=== PATIENT | male | born 1960 | race Caucasian/White ===

== ENCOUNTER 2023-03-15 18:23 | Inpatient (IN) ==
[2023-03-15] MEDS ORDERED: MoRPHine SULFATE 2 MG/ML CARP IV STA (19:46)
--- NOTE | 2023-03-15 19:50 | Emergency Department Note ---
Impression & Plan Right lower quadrant abdominal pain, Vomiting, New onset atrial flutter, Hypertension ED Provider Note INFORMANT: Patient ED PROVIDER(S): Graham Light MD CHIEF COMPLAINT: Abdominal pain PLAN: Disposition: Admitted Condition: Good Outpatient prescription management: none Referral: None MEDICAL DECISION MAKING: Patient presented because of abdominal pain. He was treated with morphine. He had blood work obtained. He does have a mild leukocytosis. Lactate normal. Chemistry panel LFTs negative. UA negative CT imaging reveals enlarged right periaortic lymph nodes. No evidence of appendicitis or obstruction. Patient was significantly hypertensive. He was also a new onset a flutter by ECG. Patient was given a dose of IV labetalol. Ultrasound imaging of the gallbladder was ordered to further elucidate the abdominal pain complaints. Patient will need further management in the hospital. Discussed the case with Dr. London of the [facility] hospitalist service. Patient was evaluated in the ER and admitted for further management. Ultrasound still pending. Discussed with shipping/receiving manager After review of the information above and other included data, I feel the patient requires admission. Triage Nursing notes reviewed and agree them. Vital Signs: reviewed and remarkable for severe hypertension Prior /Outside records reviewed: [facility] transfer paperwork reviewed. Differential diagnosis: Appendicitis, testicular torsion, infections, diverticulitis, UTI, obstruction, mesenteric ischemia, aortic pathology, inflammatory bowel disease, renal colic, PUD, pancreatitis, biliary pathology, hernia, volvulus, constipation, as well as other pathologies. Diagnostics, as interpreted by me: ECG: Twelve-lead ECG reveals atrial flutter with variable block at 75 bpm. Borderline prolonged QT. No ST elevation or depression. Nonspecific ST. Cardiac Monitoring: Cardiac monitoring ordered by me: The patient was placed on continuous cardiac monitoring and observed. It revealed a atrial flutter at 67 beats per minute. Medical decision rules: none Imaging studies: CT scan as noted above. I refer you to the EMR for further details. HPI: The patient is a 63 year old male prisoner who presents to the Emergency Room with complaints of abdominal pain. This started yesterday and is migrating to the right lower quadrant. The patient also notes the following associated symptoms, nausea and vomiting. The patient has been given morphine and Zofran prehospital for relieving factors. Current pain is rated as 5/10. Denies any prior surgical history. Denies any heart history. Heart rate was irregular and monitoring revealed atrial flutter. Patient has no history of the same. Pt denies LOC, headache, fevers, chills, diaphoresis, visual changes, neck pain, chest pain, breathing difficulties, back pain, melena, hematochezia, urinary symptoms, numbness, weakness, lymphadenopathy, rash, or other complaints. PAST MEDICAL HISTORY: See Below, hypertension PAST SURGICAL HISTORY: See Below, SOCIAL HISTORY: See Below, incarcerated HOME MEDICATIONS: See Below ALLERGIES: See Below VITALS: See Below PHYSICAL EXAMINATION: GENERAL: Awake, alert, uncomfortable-appearing, in no distress HENT: Normocephalic, atraumatic. Oropharynx unremarkable. EYES: Normal conjunctiva. Sclera non-icteric. NECK: Inspection normal. Non-tender. Supple. No nuchal rigidity. FROM. No masses. RESPIRATORY: Clear to auscultation. No wheezes. No rales. Normal respiratory effort. CARDIAC: Normal rate. Irregular rhythm. No murmurs. No rubs. Extremities warm and well perfused. Pulses equal. No JVD. GI: Soft, non-distended. Right lower quadrant tenderness to palpation. No rebound or guarding. No masses. RECTAL: Deferred. MUSCULOSKELETAL: Atraumatic. Chest examination reveals no tenderness. The back is symmetrical on inspection without obvious abnormality. There is no CVA tenderness to palpation. No joint edema. LOWER EXTREMITIES: Calves are equal size bilaterally and non-tender. No edema. No discoloration. NEURO: Normal sensorium. No sensory or motor deficits noted. SKIN: No rash or jaundice noted. Past Med/Surg History Medical History (Updated 03/16/23 @ 00:38 by Marci London DO) Bipolar disorder GERD (gastroesophageal reflux disease) reports prior UGIB s/p EGD showing ulcers Hypertension Surgical History (Updated 03/16/23 @ 00:38 by Marci London DO) History of back surgery History of knee surgery Family History (Updated 03/16/23 @ 00:39 by Marci London DO) Mother Cancer Social History Smoking Status: Unknown if ever smoked Hx Alcohol Use: No Hx Substance Use: No Allergies Allergies Allergy/AdvReac Type Severity Reaction Status Date / Time No Known Allergies Allergy Verified 03/15/23 22:08 Home Meds Home Medications Medication Instructions Recorded Confirmed atenolol 50 mg tablet 50 mg PO QAM 03/15/23 03/15/23 diclofenac sodium 50 mg 50 mg PO BID PRN Pain 03/15/23 03/15/23 tablet,delayed release lamotrigine 100 mg tablet 100 mg PO HS 03/15/23 03/15/23 (Lamictal) lisinopril 20 mg tablet 20 mg PO DAILY 03/15/23 03/15/23 omeprazole 20 mg tablet,delayed 20 mg PO DAILY 03/15/23 03/15/23 release pravastatin 10 mg tablet 10 mg PO HS 03/15/23 03/15/23 spironolactone 100 mg tablet 100 mg PO QAM 03/15/23 03/15/23 trazodone 100 mg tablet 100 mg PO HS 03/15/23 03/15/23 Results & Data (ED) Vital Signs Vital Signs - 24 hr 03/15/23 18:32 03/15/23 18:40 03/15/23 19:10 Temperature 36.6 C Temperature Source Oral Pulse Rate 68 67 Pulse Rate [Apical] Pulse Rate from SpO2 Sensor Pulse Rhythm [Apical] Respiratory Rate 16 Respiratory Effort / Characteristics Respiratory Depth Respiratory Pattern Blood Pressure 211/97 H Blood Pressure [Right Arm] Blood Pressure Mean 135 Blood Pressure Mean [Right Arm] Blood Pressure Position [Right Arm] Pulse Oximetry 97 100 Oxygen Delivery Method Room Air Sepsis Recent Fever Within 48 Hours No Sepsis New/Unexplained Change in Mental Status No Sepsis Action Taken by Nursing No Action Required 03/15/23 19:56 03/15/23 21:59 03/15/23 22:46 Temperature Temperature Source Pulse Rate Pulse Rate [Apical] 71 65 76 Pulse Rate from SpO2 Sensor Pulse Rhythm [Apical] Regular Regular Respiratory Rate 18 18 18 Respiratory Effort / Characteristics Non-Labored Spontaneous Non-Labored Spontaneous Non-Labored Spontaneous Respiratory Depth Normal Normal Normal Respiratory Pattern Regular Regular Blood Pressure Blood Pressure [Right Arm] 198/119 H 206/90 H 199/103 H Blood Pressure Mean Blood Pressure Mean [Right Arm] 145 128 135 Blood Pressure Position [Right Arm] Lying Lying Lying Pulse Oximetry 100 98 100 Oxygen Delivery Method Room Air Room Air Room Air Sepsis Recent Fever Within 48 Hours Sepsis New/Unexplained Change in Mental Status Sepsis Action Taken by Nursing 03/15/23 23:00 03/15/23 22:35 03/15/23 23:30 Temperature Temperature Source Pulse Rate 65 87 68 Pulse Rate [Apical] Pulse Rate from SpO2 Sensor 68 70 Pulse Rhythm [Apical] Respiratory Rate 23 22 Respiratory Effort / Characteristics Respiratory Depth Respiratory Pattern Blood Pressure 179/151 H 204/108 H Blood Pressure [Right Arm] Blood Pressure Mean 160 140 Blood Pressure Mean [Right Arm] Blood Pressure Position [Right Arm] Pulse Oximetry 99 99 Oxygen Delivery Method Room Air Room Air Sepsis Recent Fever Within 48 Hours Sepsis New/Unexplained Change in Mental Status Sepsis Action Taken by Nursing Laboratory Data 03/15/23 19:27 03/15/23 19:27 Lab Results 03/15/23 03/15/23 03/15/23 Range/Units 19:27 19:27 19:27 WBC 11.34 H (4.8-10.8) K/ul RBC 4.43 L (4.70-6.10) M/uL Hgb 12.9 L (14.0-18.0) g/dl Hct 36.8 L (42.0-52.0) % MCV 83.1 (80.0-100.0) fL MCH 29.1 (25.0-34.0) pg MCHC 35.1 (32.0-36.0) g/dL RDW Std Deviation 42.6 (36.4-46.3) fL RDW Coeff of Joel 14.0 (11.5-14.5) % Plt Count 248 (130-400) K/uL MPV 11.7 (9.4-12.4) fL Immature Gran % (Auto) 0.5 % Neut % (Auto) 90.0 % Lymph % (Auto) 5.3 % [place] % (Auto) 3.8 % Eos % (Auto) 0.1 % Baso % (Auto) 0.3 % Neut # (Auto) 10.21 H (1.40-6.50) K/uL Lymph # (Auto) 0.60 L (1.2-3.4) K/uL [place] # (Auto) 0.43 (0.11-0.59) K/uL Eos # (Auto) 0.01 (0-0.50) K/uL Baso # (Auto) 0.03 (0-0.2) K/uL Immature Gran # (Auto) 0.06 (0.01-0.20) K/uL Sodium 138 (136-145) mmol/L Potassium 4.1 (3.5-5.1) mmol/L Chloride 108 H (98-107) mmol/L Carbon Dioxide 19 L (21-32) mmol/L Anion Gap 11 (3-11) BUN 22 (6-23) mg/dl Creatinine 1.17 (0.6-1.4) mg/dl Est Cr Clr Drug Dosing 81.4 ml/min Est GFR ( Amer) 75.4 ml/min Est GFR (Non-Af Amer) 65.0 ml/min BUN/Creatinine Ratio 18.8 (10-20) Glucose 123 H (70-99(Fasting)) mg/dl Lactate 1.5 (0.4-2.0) mmol/L Calcium 9.6 (8.6-10.3) mg/dl Magnesium 1.7 (1.7-2.4) mg/dl Total Bilirubin 0.9 (0.2-1.0) mg/dl AST 12 L (13-39) U/L ALT 9 (7-52) U/L Alkaline Phosphatase 39 (34-104) U/L Troponin I High Sens 8.6 (0-20) pg/ml Total Protein 7.6 (6.0-8.3) gm/dl Albumin 4.5 (3.4-5.0) gm/dl Globulin 3.1 (2.5-4.0) gm/dl Albumin/Globulin Ratio 1.5 (0.9-2) Lipase 9 L (11-82) U/L Urine Color Urine Appearance (Clear) Urine pH (4.5-7.5) Ur Specific [place] (1.000-1.030) Urine Protein (Negative) Urine Glucose (UA) (Negative) Urine Ketones (Negative) Urine Blood (Negative) Urine Nitrite (Negative) Urine Bilirubin (Negative) Urine Urobilinogen (Negative) Ur Leukocyte Esterase (Negative) SARS-CoV-2, RNA, NAAT (NEGATIVE) 03/15/23 03/15/23 Range/Units 19:58 21:12 WBC (4.8-10.8) K/ul RBC (4.70-6.10) M/uL Hgb (14.0-18.0) g/dl Hct (42.0-52.0) % MCV (80.0-100.0) fL MCH (25.0-34.0) pg MCHC (32.0-36.0) g/dL RDW Std Deviation (36.4-46.3) fL RDW Coeff of Joel (11.5-14.5) % Plt Count (130-400) K/uL MPV (9.4-12.4) fL Immature Gran % (Auto) % Neut % (Auto) % Lymph % (Auto) % [place] % (Auto) % Eos % (Auto) % Baso % (Auto) % Neut # (Auto) (1.40-6.50) K/uL Lymph # (Auto) (1.2-3.4) K/uL [place] # (Auto) (0.11-0.59) K/uL Eos # (Auto) (0-0.50) K/uL Baso # (Auto) (0-0.2) K/uL Immature Gran # (Auto) (0.01-0.20) K/uL Sodium (136-145) mmol/L Potassium (3.5-5.1) mmol/L Chloride (98-107) mmol/L Carbon Dioxide (21-32) mmol/L Anion Gap (3-11) BUN (6-23) mg/dl Creatinine (0.6-1.4) mg/dl Est Cr Clr Drug Dosing ml/min Est GFR ( Amer) ml/min Est GFR (Non-Af Amer) ml/min BUN/Creatinine Ratio (10-20) Glucose (70-99(Fasting)) mg/dl Lactate (0.4-2.0) mmol/L Calcium (8.6-10.3) mg/dl Magnesium (1.7-2.4) mg/dl Total Bilirubin (0.2-1.0) mg/dl AST (13-39) U/L ALT (7-52) U/L Alkaline Phosphatase (34-104) U/L Troponin I High Sens (0-20) pg/ml Total Protein (6.0-8.3) gm/dl Albumin (3.4-5.0) gm/dl Globulin (2.5-4.0) gm/dl Albumin/Globulin Ratio (0.9-2) Lipase (11-82) U/L Urine Color Yellow Urine Appearance Clear (Clear) Urine pH 7.5 (4.5-7.5) Ur Specific [place] 1.018 (1.000-1.030) Urine Protein Negative (Negative) Urine Glucose (UA) Negative (Negative) Urine Ketones 1+ H (Negative) Urine Blood Negative (Negative) Urine Nitrite Negative (Negative) Urine Bilirubin Negative (Negative) Urine Urobilinogen Negative (Negative) Ur Leukocyte Esterase Negative (Negative) SARS-CoV-2, RNA, NAAT NEGATIVE (NEGATIVE) Administered Medications Discontinued Medications Ioversol (Optiray 320 100ml) 87 ml IV ONCE ONE Stop: 03/15/23 20:37 Last Admin: 03/15/23 20:37 Dose: 87 ml Documented By: NATO Ketorolac Tromethamine (Ketorolac Tromethamine 15 Mg/Ml Vial) 10 mg IV NOW ONE Stop: 03/15/23 20:47 Last Admin: 03/15/23 21:09 Dose: 10 mg Documented By: DARRELL Labetalol HCl (Labetalol Hcl Iv 5 Mg/Ml 20ml) 10 mg IV NOW STA Stop: 03/15/23 22:07 Last Admin: 03/15/23 22:12 Dose: 10 mg Documented By: DARRELL Co-signed By: DOMO Morphine Sulfate (Morphine Sulfate 2 Mg/Ml Carp) 2 mg IV NOW STA Stop: 03/15/23 19:47 Last Admin: 03/15/23 19:52 Dose: 2 mg Documented By: DARRELL Imaging Data Radiologist's Impression: Abdomen/Pelvis CT 03/15/23 19:19 Exam(s): CT ABDOMEN + PELVIS With Contrast IV Amt: 87ML OPITRAY 320 EXAM: CT Abdomen and Pelvis With Intravenous Contrast CLINICAL HISTORY: Reason for exam: RLQ abd pain, vomiting. TECHNIQUE: Axial computed tomography images of the abdomen and pelvis with intravenous contrast. CTDI is 25.29 mGy and DLP is 1329.98 mGy-cm. Automated exposure control was utilized for the study. A dose lowering technique was utilized adhering to the principles of ALARA. CONTRAST: Patient received 87ML OPITRAY 320 of IV contrast COMPARISON: No relevant prior studies available. FINDINGS: Lung bases: Unremarkable. No mass. No consolidation. Heart: Cardiomegaly. Mediastinum: Small hiatal hernia. ABDOMEN: Liver: Unremarkable. No mass. Gallbladder and bile ducts: Unremarkable. No calcified stones. No ductal dilation. Pancreas: Unremarkable. No mass. No ductal dilation. Spleen: Unremarkable. No splenomegaly. Adrenals: Unremarkable. No mass. Kidneys and ureters: Unremarkable. No hydronephrosis or delayed nephrogram. Stomach and bowel: Diverticulosis, without acute diverticulitis. No small bowel obstruction. No free intraperitoneal air. PELVIS: Appendix: Normal appendix. Bladder: Unremarkable. No mass. Reproductive: Unremarkable as visualized. ABDOMEN and PELVIS: Intraperitoneal space: Unremarkable. No free air. No significant fluid collection. Bones/joints: Degenerative changes of the spine. No acute fracture. No dislocation. Soft tissues: Unremarkable. Vasculature: Atherosclerotic changes of the aorta. No abdominal aortic aneurysm. Lymph nodes: Enlarged RIGHT aortocaval/perigastric lymph nodes, measuring up to 4.1 x 3.1 cm. Correlate for primary malignancy. The need for PET/CT scan should be determined clinically. IMPRESSION: 1. Enlarged RIGHT aortocaval/perigastric lymph nodes, measuring up to 4. 1 x 3.1 cm. Correlate for primary malignancy. The need for PET/CT scan should be determined clinically. 2. Small hiatal hernia. 3. Diverticulosis, without acute diverticulitis. No small bowel obstruction. No free intraperitoneal air. Electronically signed by: William Briseno MD 03/15/23 21:03 PM Discharge Plan Visit Data Chief Complaint: Abdominal Pain ED Provider: Graham Light Discharge Problem: Right lower quadrant abdominal pain, Vomiting, New onset atrial flutter, Hypertension Patient Disposition: Admitted As Inpatient Discharge Instructions Interventions: ED Discharge Assessment Last Done: 03/15/23 23:38 Forms Stand Alone Forms: My [facility] [place] DataParenting Prescriptions Prescriptions: No Action lisinopril 20 mg Tablet 20 mg PO DAILY spironolactone 100 mg Tablet 100 mg PO QAM pravastatin 10 mg Tablet 10 mg PO HS trazodone 100 mg Tablet 100 mg PO HS diclofenac sodium 50 mg Tablet,Delayed Release (Dr/Ec) 50 mg PO BID PRN (Reason: Pain) atenolol 50 mg Tablet 50 mg PO QAM lamotrigine [Lamictal] 100 mg Tablet 100 mg PO HS omeprazole 20 mg Tablet,Delayed Release (Dr/Ec) 20 mg PO DAILY Referrals Referrals: PCP,NO [Physician] -
[2023-03-15 19:52] LABS: Basophils # (auto) 0.03 K/uL (0-0.2); Basophils % (auto) 0.3 %; Eosinophils # (auto) 0.01 K/uL (0-0.50); Eosinophils % (auto) 0.1 %; Hematocrit (blood only) 36.8 % (42.0-52.0); Hemoglobin 12.9 g/dl (14.0-18.0); Immature Granulocytes # (auto) 0.06 K/uL (0.01-0.20); Immature Granulocytes % (auto) 0.5 %; Lymphocytes % (auto) 5.3 %; Mean Corpuscular Hemoglobin 29.1 pg (25.0-34.0); Mean Corpuscular Hgb Conc 35.1 g/dL (32.0-36.0); Mean Corpuscular Volume 83.1 fL (80.0-100.0); Mean Platelet Volume 11.7 fL (9.4-12.4); Monocytes # (auto) 0.43 K/uL (0.11-0.59); Monocytes % (auto) 3.8 %; Neutrophils # (auto) 10.21 K/uL (1.40-6.50); Platelet Count 248 K/uL (130-400); RDW Standard Deviation 42.6 fL (36.4-46.3); Red Blood Count 4.43 M/uL (4.70-6.10); White Blood Count 11.34 K/ul (4.8-10.8)
[2023-03-15 20:06] LABS: Albumin Globulin Ratio 1.5 (0.9-2); Albumin Level 4.5 gm/dl (3.4-5.0); BUN Creatinine Ratio 18.8 (10-20); Bilirubin,Total 0.9 mg/dl (0.2-1.0); Calcium 9.6 mg/dl (8.6-10.3); Creatinine Clr Calc Pharmacy 81.4 ml/min; Est GFR (African American) 75.4 ml/min; Globulin 3.1 gm/dl (2.5-4.0); Magnesium 1.7 mg/dl (1.7-2.4); Potassium 4.1 mmol/L (3.5-5.1); Total Protein 7.6 gm/dl (6.0-8.3)
[2023-03-15 20:12] LABS: Troponin I High Sensitivity 8.6 pg/ml (0-20)
[2023-03-15] MEDS ORDERED: OPTIRAY 320 100ml IV ONE (20:36)
[2023-03-15] MEDS ORDERED: KETOROLAC TROMETHAMINE 15 MG/ML VIAL IV ONE (20:46)
--- NOTE | 2023-03-15 21:04 | CT Scan Report ---
Exam(s): CT ABDOMEN + PELVIS With Contrast IV Amt: 87ML OPITRAY 320 EXAM: CT Abdomen and Pelvis With Intravenous Contrast CLINICAL HISTORY: Reason for exam: RLQ abd pain, vomiting. TECHNIQUE: Axial computed tomography images of the abdomen and pelvis with intravenous contrast. CTDI is 25.29 mGy and DLP is 1329.98 mGy-cm. Automated exposure control was utilized for the study. A dose lowering technique was utilized adhering to the principles of ALARA. CONTRAST: Patient received 87ML OPITRAY 320 of IV contrast COMPARISON: No relevant prior studies available. FINDINGS: Lung bases: Unremarkable. No mass. No consolidation. Heart: Cardiomegaly. Mediastinum: Small hiatal hernia. ABDOMEN: Liver: Unremarkable. No mass. Gallbladder and bile ducts: Unremarkable. No calcified stones. No ductal dilation. Pancreas: Unremarkable. No mass. No ductal dilation. Spleen: Unremarkable. No splenomegaly. Adrenals: Unremarkable. No mass. Kidneys and ureters: Unremarkable. No hydronephrosis or delayed nephrogram. Stomach and bowel: Diverticulosis, without acute diverticulitis. No small bowel obstruction. No free intraperitoneal air. PELVIS: Appendix: Normal appendix. Bladder: Unremarkable. No mass. Reproductive: Unremarkable as visualized. ABDOMEN and PELVIS: Intraperitoneal space: Unremarkable. No free air. No significant fluid collection. Bones/joints: Degenerative changes of the spine. No acute fracture. No dislocation. Soft tissues: Unremarkable. Vasculature: Atherosclerotic changes of the aorta. No abdominal aortic aneurysm. Lymph nodes: Enlarged RIGHT aortocaval/perigastric lymph nodes, measuring up to 4.1 x 3.1 cm. Correlate for primary malignancy. The need for PET/CT scan should be determined clinically. IMPRESSION: 1. Enlarged RIGHT aortocaval/perigastric lymph nodes, measuring up to 4. 1 x 3.1 cm. Correlate for primary malignancy. The need for PET/CT scan should be determined clinically. 2. Small hiatal hernia. 3. Diverticulosis, without acute diverticulitis. No small bowel obstruction. No free intraperitoneal air. Electronically signed by: William Briseno MD 03/15/23 21:03 PM
[2023-03-15 21:44] LABS: Appearance Urine Clear (Clear); Bilirubin Urine Negative (Negative); Blood Urine Negative (Negative); Color Urine Yellow; Glucose Urine UA Negative (Negative); Ketones Urine 1+ (Negative); Leukocyte Esterase Urine Negative (Negative); Nitrite Urine Negative (Negative); Protein Urine Negative (Negative); Specific Gravity Urine 1.018 (1.000-1.030); Urobilinogen Urine Negative (Negative); pH Urine 7.5 (4.5-7.5)
[2023-03-15] MEDS ORDERED: LABETALOL HCL IV 5 MG/ML 20ML IV STA (22:06)
--- NOTE | 2023-03-15 22:49 | History & Physical Report ---
Date of Service March 15, 2023 Assessment & Plan (1) Abdominal pain: Plan: 63yo male presenting with right sided abdominal pain, nausea, vomiting and diarrhea that began yesterday AM. Leukocytosis with WBC=11.34, neutrophil predominant. Normochromic/normocytic anemia. LFTs and lipase are within normal limits. CT of the abdomen above with concerning finding of enlarged RIGHT aortocaval/perigastric node measuring 4.1 x 3.1 cm. RUQUS with cholelithiasis without evidence of acute cholecystitis. Description of pain does not correlate with biliary pain Patient denies weight loss, night sweats or GI complaints prior to this event. No personal history of malignancy. -Admit to PCU -Check Stool PCR panel -Zofran PRN -Morphine PRN -Repeat labs in AM (2) Enlarged lymph nodes: Plan: As above. Concerning for possible malignancy. -Check LDH -Consider IR vs General Surgery consultation for possible biopsy (3) Hypertension: Plan: Markedly elevated blood pressure. No complaint of chest pain, SOB -Continue Atenolol 50mg po qAM -Continue Lisinopril 20mg po daily -Continue Spironolactone 100mg po qAM -Clonidine PO as needed for BP > 180/110 (4) GERD (gastroesophageal reflux disease): Plan: Chronic. Patient reports history of prior UGIB and had an EGD which showed ulcers. He denies melena or hematochezia. -Protonix 40mg po daily (5) Bipolar disorder: Plan: Chronic. Stable -Continue Lamotrigine 100mg po qHS (6) New onset atrial flutter: Plan: Patient found to be in atrial flutter with variable conduction. No history of prior. Rate is controlled. Patient with ADIDX-2-Pdmg score of 1 for history of HTN. Anticoagulation can be considered. Electrolytes within normal limits -Will check TSH -Check 2D echo -Continue Atenolol -Defer anticoagulation for now History of Present Illness Chief Complaint: abdominal pain Primary Care Provider: [facility] Graham Hurt is a 63yo male with history of HTN, Bipolar disorder, GERD and HCV s/p treatment with cure presenting from [facility] with complaint of abdominal pain. Patient reports he was in his usual state of health until yesterday AM 03/14/23 when he developed severe right sided abdominal pain. The pain started after he woke up - had not eaten yet. He had associated nausea with non-bloody/non-bilious vomiting as well as watery diarrhea. His symptoms resolved on their own during the day and he was able to sleep without difficulty. Pain returned this morning 03/15/23 after patient woke up. He had recurrence of nausea but no diarrhea. He was seen at the [facility] and EMS was called for hospital transfer. He subjectively feels hot but no documented fever. Denies chills, cough, SOB, urinary complaints. No weight loss or night sweats. Patient reports overall he is eating and drinking well. Bowels are moving without difficulty and no urinary complaints. Patient hypertensive in the ER. Found to be in atrial flutter ER Course: Toradol Labetalol Allergies Allergy/AdvReac Type Severity Reaction Status Date / Time No Known Allergies Allergy Verified 03/15/23 22:08 Home Medications Medication Instructions Recorded Confirmed Type atenolol 50 mg tablet 50 mg PO QAM 03/15/23 03/15/23 History diclofenac sodium 50 mg 50 mg PO BID PRN Pain 03/15/23 03/15/23 History tablet,delayed release lamotrigine 100 mg tablet 100 mg PO HS 03/15/23 03/15/23 History (Lamictal) lisinopril 20 mg tablet 20 mg PO DAILY 03/15/23 03/15/23 History omeprazole 20 mg tablet,delayed 20 mg PO DAILY 03/15/23 03/15/23 History release pravastatin 10 mg tablet 10 mg PO HS 03/15/23 03/15/23 History spironolactone 100 mg tablet 100 mg PO QAM 03/15/23 03/15/23 History trazodone 100 mg tablet 100 mg PO HS 03/15/23 03/15/23 History Past Med/Surg History Medical History (Updated 03/16/23 @ 00:54 by Marci London DO) Bipolar disorder GERD (gastroesophageal reflux disease) reports prior UGIB s/p EGD showing ulcers Hypertension Surgical History (Updated 03/16/23 @ 00:38 by Marci London DO) History of back surgery History of knee surgery Family History (Updated 03/16/23 @ 00:39 by Marci London DO) Mother Cancer Social History (Updated 07/01/23 @ 00:39 by RANDI Licea Smoking Status: Unknown if ever smoked Hx Alcohol Use: Yes Hx Substance Use: No Preferred Language: Greenlandic Communication Ability: Effective Quill Reamer Required: No Beliefs That Will Affect Care: None Review of Systems Review of Systems: All systems reviewed & are unremarkable except as noted in HPI & below Physical Exam Physical Exam: General: patient resting comfortably, NAD, non-toxic in appearance, AA&O x 4 Skin: warm, dry, intact, no rashes or lesions HEENT: NC/AT, PERRL, EOMI, anicteric sclera, conjunctiva without injection, external ear normal to inspection and nontender, nares patent, moist mucus membranes, dentition intact, no oropharyngeal lesions, neck supple, trachea midline, no LAD, no thyromegaly, no JVD Heart: +S1/S2, irregular, no m/r/g Lungs: equal air entry bilaterally, no rales/rhonchi/wheezes Abd: +BS, soft, tender in right mid-abdomen, no rebound/guarding/peritonitis, negative Aguiar's Ext: warm, 2+ pulses in UE/LE bilaterally, no clubbing/cyanosis or edema Neuro: nonfocal, patient AA&O x 4, speech intact, no facial droop, moving all extremities on command with equal strength 5/5 Results & Data Results & Data Vital Signs (Past 12 Hours) Vital Signs Temp Pulse Pulse Resp BP BP Pulse Ox 03/15/23 22:46 76 18 199/103 H 100 03/15/23 21:59 65 18 206/90 H 98 03/15/23 19:56 71 18 198/119 H 100 03/15/23 19:10 100 03/15/23 18:40 67 03/15/23 18:32 36.6 C 68 16 211/97 H 97 O2 Del Method 03/15/23 22:46 Room Air 03/15/23 21:59 Room Air 03/15/23 19:56 Room Air 03/15/23 19:10 03/15/23 18:40 03/15/23 18:32 Room Air Laboratory Results Laboratory Results WBC 11.34 K/ul (4.8-10.8) H 03/15/23 19:27 RBC 4.43 M/uL (4.70-6.10) L 03/15/23 19:27 Hgb 12.9 g/dl (14.0-18.0) L 03/15/23: Hct 36.8 % (42.0-52.0) L 03/15/23: MCV 83.1 fL (80.0-100.0) 03/15/23: MCH 29.1 pg (25.0-34.0) 03/15/23: MCHC 35.1 g/dL (32.0-36.0) 03/15/23: RDW Std Deviation 42.6 fL (36.4-46.3) 03/15/23 RDW Coeff of Joel 14.0 % (11.5-14.5) 03/15/23 Plt Count 248 K/uL (130-400) 03/15/23: MPV 11.7 fL (9.4-12.4) 03/15/23: Immature Gran % (Auto) 0.5 % 03/15/23: Neut % (Auto) 90.0 % 03/15/23: Lymph % (Auto) 5.3 % 03/15/23: Edmunds % (Auto) 3.8 % 03/15/23: Eos % (Auto) 0.1 % 03/15/23: Baso % (Auto) 0.3 % 03/15/23 Neut # (Auto) 10.21 K/uL (1.40-6.50) H 03/15/23: Lymph # (Auto) 0.60 K/uL (1.2-3.4) L 03/15/23: Edmunds # (Auto) 0.43 K/uL (0.11-0.59) 03/15/23: Eos # (Auto) 0.01 K/uL (0-0.50) 03/15/23 Baso # (Auto) 0.03 K/uL (0-0.2) 03/15/23: Immature Gran # (Auto) 0.06 K/uL (0.01-0.20) 03/15/23: Sodium 138 mmol/L (136-145) 06/30/23 19:27 Potassium 4.1 mmol/L (3.5-5.1) 03/15/23 19:27 Chloride 108 mmol/L (98-107) H 03/15/23 19:27 Carbon Dioxide 19 mmol/L (21-32) L 03/15/23 19:27 Anion Gap 11 (3-11) 03/15/23 19:27 BUN 22 mg/dl (6-23) 03/15/23 19:27 Creatinine 1.17 mg/dl (0.6-1.4) 03/15/23 19:27 Est Cr Clr Drug Dosing 81.4 ml/min 03/15/23 19:27 Est GFR ( Amer) 75.4 ml/min 03/15/23 19:27 Est GFR (Non-Af Amer) 65.0 ml/min 03/15/23 19:27 BUN/Creatinine Ratio 18.8 (10-20) 03/15/23 19:27 Glucose 123 mg/dl (70-99(Fasting)) H 03/15/23 19:27 Lactate 1.5 mmol/L (0.4-2.0) 03/15/23 19:27 Calcium 9.6 mg/dl (8.6-10.3) 03/15/23 19:27 Magnesium 1.7 mg/dl (1.7-2.4) 03/15/23 19:27 Total Bilirubin 0.9 mg/dl (0.2-1.0) 03/15/23 19:27 AST 12 U/L (13-39) L 03/15/23 19:27 ALT 9 U/L (7-52) 03/15/23 19:27 Alkaline Phosphatase 39 U/L (34-104) 03/15/23 19:27 Troponin I High Sens 8.6 pg/ml (0-20) 03/15/23 19:27 Total Protein 7.6 gm/dl (6.0-8.3) 03/15/23 19:27 Albumin 4.5 gm/dl (3.4-5.0) 03/15/23 19:27 Globulin 3.1 gm/dl (2.5-4.0) 03/15/23 19:27 Albumin/Globulin Ratio 1.5 (0.9-2) 03/15/23 19:27 Lipase 9 U/L (11-82) L 03/15/23 19:27 Urine Color Yellow 03/15/23 21:12 Urine Appearance Clear (Clear) 03/15/23 21:12 Urine pH 7.5 (4.5-7.5) 03/15/23 21:12 Ur Specific [place] 1.018 (1.000-1.030) 03/15/23 21:12 Urine Protein Negative (Negative) 03/15/23 21:12 Urine Glucose (UA) Negative (Negative) 03/15/23 21:12 Urine Ketones 1+ (Negative) H 03/15/23 21:12 Urine Blood Negative (Negative) 03/15/23 21:12 Urine Nitrite Negative (Negative) 03/15/23 21:12 Urine Bilirubin Negative (Negative) 03/15/23 21:12 Urine Urobilinogen Negative (Negative) 03/15/23 21:12 Ur Leukocyte Esterase Negative (Negative) 03/15/23 21:12 SARS-CoV-2, RNA, NAAT NEGATIVE (NEGATIVE) 03/15/23 19:58 Impressions Abdomen/Pelvis CT 03/15/23 19:19 Exam(s): CT ABDOMEN + PELVIS With Contrast IV Amt: 87ML OPITRAY 320 EXAM: CT Abdomen and Pelvis With Intravenous Contrast CLINICAL HISTORY: Reason for exam: RLQ abd pain, vomiting. TECHNIQUE: Axial computed tomography images of the abdomen and pelvis with intravenous contrast. CTDI is 25.29 mGy and DLP is 1329.98 mGy-cm. Automated exposure control was utilized for the study. A dose lowering technique was utilized adhering to the principles of ALARA. CONTRAST: Patient received 87ML OPITRAY 320 of IV contrast COMPARISON: No relevant prior studies available. FINDINGS: Lung bases: Unremarkable. No mass. No consolidation. Heart: Cardiomegaly. Mediastinum: Small hiatal hernia. ABDOMEN: Liver: Unremarkable. No mass. Gallbladder and bile ducts: Unremarkable. No calcified stones. No ductal dilation. Pancreas: Unremarkable. No mass. No ductal dilation. Spleen: Unremarkable. No splenomegaly. Adrenals: Unremarkable. No mass. Kidneys and ureters: Unremarkable. No hydronephrosis or delayed nephrogram. Stomach and bowel: Diverticulosis, without acute diverticulitis. No small bowel obstruction. No free intraperitoneal air. PELVIS: Appendix: Normal appendix. Bladder: Unremarkable. No mass. Reproductive: Unremarkable as visualized. ABDOMEN and PELVIS: Intraperitoneal space: Unremarkable. No free air. No significant fluid collection. Bones/joints: Degenerative changes of the spine. No acute fracture. No dislocation. Soft tissues: Unremarkable. Vasculature: Atherosclerotic changes of the aorta. No abdominal aortic aneurysm. Lymph nodes: Enlarged RIGHT aortocaval/perigastric lymph nodes, measuring up to 4.1 x 3.1 cm. Correlate for primary malignancy. The need for PET/CT scan should be determined clinically. IMPRESSION: 1. Enlarged RIGHT aortocaval/perigastric lymph nodes, measuring up to 4. 1 x 3.1 cm. Correlate for primary malignancy. The need for PET/CT scan should be determined clinically. 2. Small hiatal hernia. 3. Diverticulosis, without acute diverticulitis. No small bowel obstruction. No free intraperitoneal air. Electronically signed by: William Briseno MD 03/15/23 21:03 PM Diagnostic Findings Exam(s): US GALLBLADDER EXAM: US Abdomen Limited, Gallbladder CLINICAL HISTORY: Reason for exam: abd pain. TECHNIQUE: Real-time ultrasound of the right upper quadrant with image documentation. COMPARISON: No relevant prior studies available. FINDINGS: Limitations: The examination is limited by overlying bowel gas. Liver: There is a small cyst in the right hepatic lobe. Gallbladder: There are small stones and sludge within the gallbladder. Common bile duct: Unremarkable as visualized. No stones. No dilation. Pancreas: Unremarkable as visualized. Right kidney: There is a 1.4 cm cyst in the lower pole of the right kidney. IMPRESSION: Cholelithiasis without sonographic evidence of acute cholecystitis or choledocholithiasis. Electronically signed by: Xiang Wiggins MD 03/16/23 00:58 AM Dictated:03/16/2357 Transcribed: 03/16/2357 ECG Additional Comments: EKG wtih Atrial flutter at 75bpm, variable AV block, QRS=92, KYn=030 PG Care Time/CCT Total # of Minutes Spent Total Time Spent with Patient: Total time spent is greater than 50% in coordination of care (as documented) at patient's floor/unit and/or counseling patient: Coding Level of Care Code 00403 INT INP/OBS CARE 3/75MIN Diagnoses Abdominal pain R10.9 Enlarged lymph nodes R59.9 Hypertension I10 GERD (gastroesophageal reflux disease) K21.9 Bipolar disorder F31.9 New onset atrial flutter I48.92
--- NOTE | 2023-03-16 00:59 | Ultrasound Report ---
Exam(s): US GALLBLADDER EXAM: US Abdomen Limited, Gallbladder CLINICAL HISTORY: Reason for exam: abd pain. TECHNIQUE: Real-time ultrasound of the right upper quadrant with image documentation. COMPARISON: No relevant prior studies available. FINDINGS: Limitations: The examination is limited by overlying bowel gas. Liver: There is a small cyst in the right hepatic lobe. Gallbladder: There are small stones and sludge within the gallbladder. Common bile duct: Unremarkable as visualized. No stones. No dilation. Pancreas: Unremarkable as visualized. Right kidney: There is a 1.4 cm cyst in the lower pole of the right kidney. IMPRESSION: Cholelithiasis without sonographic evidence of acute cholecystitis or choledocholithiasis. Electronically signed by: Xiang Wiggins MD 03/16/23 00:58 AM
[2023-03-16] MEDS: MoRPHine SULFATE 2 MG/ML CARP IV PRN ×5 (01:17→20:15)
[2023-03-16] MEDS: cloNIDine HCL 0.1 MG TAB PO PRN ×3 (01:17→19:38)
[2023-03-16] MEDS: LACTATED RINGER'S 1,000 ML IV SCH ×2 (01:18→14:15)
[2023-03-16 06:13] LABS: Hematocrit (blood only) 37.9 % (42.0-52.0); Hemoglobin 12.9 g/dl (14.0-18.0); Mean Corpuscular Hemoglobin 28.9 pg (25.0-34.0); Mean Platelet Volume 11.6 fL (9.4-12.4); Platelet Count 288 K/uL (130-400); RDW Standard Deviation 43.2 fL (36.4-46.3); Red Blood Count 4.46 M/uL (4.70-6.10); White Blood Count 14.42 K/ul (4.8-10.8)
[2023-03-16 06:29] LABS: Albumin Level 4.2 gm/dl (3.4-5.0); BUN Creatinine Ratio 15.9 (10-20); Bilirubin Direct 0.2 mg/dl (0-0.2); Bilirubin,Total 0.9 mg/dl (0.2-1.0); Calcium 9.2 mg/dl (8.6-10.3); Creatinine Clr Calc Pharmacy 84.3 ml/min; Est GFR (African American) 78.6 ml/min; Est GFR (Non-African American) 67.8 ml/min; Potassium 4.2 mmol/L (3.5-5.1); Total Protein 7.4 gm/dl (6.0-8.3)
[2023-03-16] MEDS: ONDANSETRON INJ 2 MG/ML 2 ML VIAL IV PRN ×2 (08:05→20:16)
[2023-03-16] MEDS: SPIRONOLACTONE 100 MG TAB PO SCH (08:08)
[2023-03-16] MEDS: lisinopril 20 MG TAB PO SCH (08:08)
[2023-03-16] MEDS: PANTOprazole 40 MG TAB PO SCH (08:08)
[2023-03-16] MEDS: ATENOLOL 50 MG TABLET PO SCH (08:09)
[2023-03-16] MEDS: ENOXAPARIN INJ 40 MG/0.4 ML SYR SQ SCH (09:48)
--- NOTE | 2023-03-16 11:52 | XCELERA ---
[id number] \\[email or web address]\[id number]___[id number]
--- NOTE | 2023-03-16 12:38 | Hospitalist Progress Note ---
Date of Service March 16, 2023 Assessment & Plan (1) Abdominal pain: Plan: Localized in right lower quadrant area. Acute appendicitis is a consideration. General surgery consultation requested. We will keep n.p.o. for now on IV fluids and start intravenous Unasyn. LFTs and lipase are within normal limits. CT of the abdomen above with concerning finding of enlarged RIGHT aortocaval/perigastric node measuring 4.1 x 3.1 cm. RUQUS with cholelithiasis without evidence of acute cholecystitis. (2) Enlarged lymph nodes: Plan: This will need further outpatient follow-up (3) Hypertension: Plan: Currently on atenolol, lisinopril, spironolactone. Will use intravenous hydralazine as needed. Telemetry. (4) GERD (gastroesophageal reflux disease): Plan: Protonix therapy . He does have a history of peptic ulcer disease (5) Bipolar disorder: Plan: Stable. Continue Lamotrigine (6) New onset atrial flutter: Plan: Telemetry. Cardiac echo. Cardiology consultation. Check thyroid profile. Plan [facility]mission and Anticipated Discharge Date Admission Date: March 15, 2023 Subjective Alert and oriented. Several problems going on at this time. He has right lower quadrant pain and may have acute appendicitis. He will be kept n.p.o. and Unasyn has been started. General surgery consultation requested. He also has atrial flutter of undetermined length of time. Cardiac echo report is pending. Thyroid profile pending. Cardiology consultation requested. Blood pressure has been elevated at times. Will use IV hydralazine as needed Review of Systems Review of Systems: Constitutional-no fever or chills ENT-no blurred vision, no double vision, no epistaxis, no sore throat Respiratory-no cough, no wheezing, no shortness of breath Cardiac-he occasionally feels palpitations. No syncope. No chest pain GI-right lower quadrant discomfort with nausea. No vomiting. No melena. No hematochezia -no urinary retention, no urinary incontinence, no dysuria, no hematuria Musculoskeletal-no joint pain, no muscle tenderness Skin-no bruising, no rashes, no pruritus Neuro-no isolated weakness, no paresthesia, no weakness Psych-no depression, no anxiety Physical Exam Physical Exam: General-alert and oriented x3, no fevers, no chills HEENT-head atraumatic and normocephalic, pupils equal and reactive to light, extraocular muscles intact Neck-no lymphadenopathy or thyromegaly, trachea midline Chest-clear to auscultation percussion. No rales wheezing or rhonchi Cardiac-irregular rhythm. Normal S1 and S2 Abdomen-normal bowel sounds, no hepatosplenomegaly. Right lower quadrant tenderness. No masses. No rebound or guarding Extremities-no cyanosis, clubbing, or edema Neuro-cranial nerves II through XII intact, motor and sensory function within normal limits, strength symmetrical , no focal deficits Psych-normal affect, normal mood Results & Data Results & Data Vital Signs (Past 12 Hours) Vital Signs Temp Pulse Pulse Resp BP BP Pulse Ox 03/16/23 12:18 67 03/16/23 10:52 36.6 C 50 L 19 191/88 H 99 03/16/23 08:02 36.7 C 99 H 18 185/88 H 99 03/16/23 03:19 37.4 C 81 18 161/84 H 98 03/16/23 02:00 75 177/88 H 03/16/23 00:56 67 03/16/23 01:06 36.7 C 88 16 197/98 H 99 O2 Del Method 03/16/23 12:18 03/16/23 10:52 Room Air 03/16/23 08:02 Room Air 03/16/23 03:19 Room Air 03/16/23 02:00 03/16/23 00:56 03/16/23 01:06 Room Air Laboratory Results 03/16/23 05:20 03/16/23 05:20 PG Care Time/CCT Total # of Minutes Spent Total Time Spent with Patient: Total time spent is greater than 50% in coordination of care (as documented) at patient's floor/unit and/or counseling patient: Coding Level of Care Code 07789 SUB INP/OBS CARE 3/50MIN Diagnoses Abdominal pain R10.9 Enlarged lymph nodes R59.9 Hypertension I10 GERD (gastroesophageal reflux disease) K21.9 Bipolar disorder F31.9 New onset atrial flutter I48.92
[2023-03-16] MEDS: AMPICILLIN/SULBACTAM SOD 3,000 MG in 0.9 % SODIUM CHLORIDE 100 ML IV SCH ×2 (12:46→18:47)
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
--- NOTE | 2023-03-16 17:20 | Cardiology Consultation ---
Date of Consultation March 16, 2023 Assessment & Plan (1) Atrial flutter: (2) Hypertension: (3) Mitral regurgitation: (4) Abdominal pain: Plan ASSESSMENT/PLAN: 1. Atrial flutter: New diagnosis. Onset unclear. Asymptomatic. Diagnosis discussed with patient in detail. Recommend anticoagulation for stroke risk reduction given [id number] of 2. Anticoagulation therapy can be initiated if no surgical/biopsy plans soon. As this is well-tolerated and heart rate is mildly bradycardic to normal, urgent cardioversion is not necessary. Would recommend follow-up with Dr. Rodas of electrophysiology for possible atrial flutter ablation in the outpatient setting. Would need to be on anticoagulation therapy for 4 weeks prior to ablation. Can continue beta-lauren but could reduce dose if more significantly bradycardic. 2. Hypertension: Blood pressure elevated but improved from presentation. Pain may be driving his blood pressure as well. Can continue beta-lauren as above. Can further titrate lisinopril. Consider adding calcium channel lauren such as amlodipine to further improve blood pressure as needed if remains elevated after abdominal pain controlled. Can continue spironolactone. 3. Mitral regurgitation: Nonsevere. Can be monitored in 3 to 5 years with repeat echo. 4. Abdominal pain: As per primary hospitalist service and surgery. If he requires surgical intervention, he appears to be low risk from a cardiac perspective at this time. 5. Disposition: Plan of care communicated with Dr. Lund of the primary hospitalist service. Cardiology will sign off at this time. Recommend follow- up with Dr. Rodas on discharge as above. Highly complex medical issues for which elective atrial flutter ablation was considered and discussed. Thank you for allowing me to participate in the care of your patient. Please call for any other questions or concerns. Sincerely, Ajit Alberto M.D. History of Present Illness Reason for Consultation: Atrial flutter Requesting Physician: Sebastián Lund MD Attending Physician: Sebastián Lund MD History of Present Illness Mr. Hurt is a 63-year-old gentleman with a history significant for bipolar disorder and hypertension. He was hospitalized on 03/15/2023 with abdominal pain, nausea, vomiting, and diarrhea. He had approximately 2 days of right lower quadrant pain with initial diarrhea followed by nausea and vomiting. Because of this, he had limited oral intake on the day of presentation. The abdominal pain has continued throughout his hospital stay. He was noted to have leukocytosis on presentation which has increased. He also underwent abdominal/pelvic CT scan which reported enlarged right aortocaval/perigastric lymph nodes for which radiology recommended correlating for primary malignancy. There was also suggestion of diverticulosis without diverticulitis and no bowel obstruction. He then underwent gallbladder ultrasound which reported cholelithiasis without sonographic evidence of acute cholecystitis or choledocholithiasis. He was seen by surgery, who recommended HIDA scan and also IR biopsy of the enlarged lymph nodes. On presentation ECG, he was noted to be in atrial flutter with variable AV block but normal heart rate. He has maintained atrial flutter throughout his hospital stay and while in bed, has been bradycardic at times but asymptomatic. He denies palpitations, syncope, near syncope, chest pain, shortness of breath. He denies a history of TIA/stroke, diabetes, heart failure, vascular disease, but has had hypertension for approximately 30 years. He recalls having an ECG approximately 1 year ago while incarcerated in [place] and does not recall a diagnosis of atrial flutter. Review of systems: As above. Review of systems otherwise negative/unremarkable. Family history: Stroke, diabetes, hypertension. No known premature CAD. Social history: Quit smoking in approximately 2020 after smoking approximately 40 years mostly 0.5 pack/day. He considers himself an alcoholic but has not consumed alcohol for several years. He states that alcohol is related to his incarceration. He is . He has 2 children but does not know where they reside. He is from [place]. He currently resides in [facility]. 2 guards were present in the room. Allergies Allergy/AdvReac Type Severity Reaction Status Date / Time No Known Allergies Allergy Verified 03/15/23 22:08 Home Medications Medication Instructions Recorded Confirmed Type atenolol 50 mg tablet 50 mg PO QAM 03/15/23 03/15/23 History diclofenac sodium 50 mg 50 mg PO BID PRN Pain 03/15/23 03/15/23 History tablet,delayed release lamotrigine 100 mg tablet 100 mg PO HS 03/15/23 03/15/23 History (Lamictal) lisinopril 20 mg tablet 20 mg PO DAILY 03/15/23 03/15/23 History omeprazole 20 mg tablet,delayed 20 mg PO DAILY 03/15/23 03/15/23 History release pravastatin 10 mg tablet 10 mg PO HS 03/15/23 03/15/23 History spironolactone 100 mg tablet 100 mg PO QAM 03/15/23 03/15/23 History trazodone 100 mg tablet 100 mg PO HS 03/15/23 03/15/23 History Patient History Medical History Bipolar disorder GERD (gastroesophageal reflux disease) reports prior UGIB s/p EGD showing ulcers Hypertension Surgical History (Updated 03/16/23 @ 00:38 by Marci London DO) History of back surgery History of knee surgery Family History (Updated 03/16/23 @ 00:39 by Marci London DO) Mother Cancer Social History (Updated 03/16/23 @ 00:39 by Marci London DO) Smoking Status: Unknown if ever smoked Hx Alcohol Use: Yes Hx Substance Use: No Preferred Language: Occitan Communication Ability: Effective 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 Alert and oriented. HEENT: Anicteric sclera. Neck: No JVD. No bruits. Normal carotid upstrokes bilaterally. Cardiac: No ventricular heave. Irregularly irregular. Normal S1-S2. No murmurs, rubs, or gallops. Pulmonary: Clear to auscultation bilaterally without wheezes, rales, or rhonchi. Abdomen: Soft, nondistended, with hypoactive bowel sounds. No bruits noted. Right upper quadrant abdominal pain, without rebound tenderness. Extremities: 2+ radial pulses bilaterally. 2+ dorsalis pedis pulses bilaterally. No edema or cyanosis. Psychiatric: Affect appears appropriate. Results & Data Vital Signs (Past 12 Hours) Vital Signs Temp Pulse Pulse Resp BP BP Pulse Ox 03/16/23 15:34 36.8 C 45 L 18 172/83 H 99 03/16/23 12:28 176/74 H 03/16/23 12:18 67 03/16/23 10:52 36.6 C 50 L 19 191/88 H 99 03/16/23 08:02 36.7 C 99 H 18 185/88 H 99 O2 Del Method 03/16/23 15:34 Room Air 03/16/23 12:28 03/16/23 12:18 03/16/23 10:52 Room Air 03/16/23 08:02 Room Air Intake & Output 03/14/23 03/15/23 03/16/23 03/17/23 06:59 06:59 06:59 06:59 Intake Total 1528 / 1528 Output Total 700 / 700 Balance 828 / 828 Weight 208 lb 12.444 oz Laboratory Results Laboratory Results - last 24 hr 03/15/23 03/15/23 03/15/23 19:27 19:27 19:27 WBC 11.34 H RBC 4.43 L Hgb 12.9 L Hct 36.8 L MCV 83.1 MCH 29.1 MCHC 35.1 RDW Std Deviation 42.6 RDW Coeff of Joel 14.0 Plt Count 248 MPV 11.7 Immature Gran % (Auto) 0.5 Neut % (Auto) 90.0 Lymph % (Auto) 5.3 [place] % (Auto) 3.8 Eos % (Auto) 0.1 Baso % (Auto) 0.3 Neut # (Auto) 10.21 H Lymph # (Auto) 0.60 L [place] # (Auto) 0.43 Eos # (Auto) 0.01 Baso # (Auto) 0.03 Immature Gran # (Auto) 0.06 Sodium 138 Potassium 4.1 Chloride 108 H Carbon Dioxide 19 L Anion Gap 11 BUN 22 Creatinine 1.17 Est Cr Clr Drug Dosing 81.4 Est GFR ( Amer) 75.4 Est GFR (Non-Af Amer) 65.0 BUN/Creatinine Ratio 18.8 Glucose 123 H Lactate 1.5 Calcium 9.6 Magnesium 1.7 Total Bilirubin 0.9 Direct Bilirubin AST 12 L ALT 9 Alkaline Phosphatase 39 Lactate Dehydrogenase Troponin I High Sens 8.6 Total Protein 7.6 Albumin 4.5 Globulin 3.1 Albumin/Globulin Ratio 1.5 Lipase 9 L TSH Free T4 Free T3 Urine Color Urine Appearance Urine pH Ur Specific [place] Urine Protein Urine Glucose (UA) Urine Ketones Urine Blood Urine Nitrite Urine Bilirubin Urine Urobilinogen Ur Leukocyte Esterase SARS-CoV-2, RNA, NAAT 03/15/23 03/15/23 03/16/23 19:58 21:12 05:20 WBC RBC Hgb Hct MCV MCH MCHC RDW Std Deviation RDW Coeff of Joel Plt Count MPV Immature Gran % (Auto) Neut % (Auto) Lymph % (Auto) [place] % (Auto) Eos % (Auto) Baso % (Auto) Neut # (Auto) Lymph # (Auto) [place] # (Auto) Eos # (Auto) Baso # (Auto) Immature Gran # (Auto) Sodium Potassium Chloride Carbon Dioxide Anion Gap BUN Creatinine Est Cr Clr Drug Dosing Est GFR ( Amer) Est GFR (Non-Af Amer) BUN/Creatinine Ratio Glucose Lactate Calcium Magnesium Total Bilirubin Direct Bilirubin AST ALT Alkaline Phosphatase Lactate Dehydrogenase 157 Troponin I High Sens Total Protein Albumin Globulin Albumin/Globulin Ratio Lipase TSH Free T4 Free T3 Urine Color Yellow Urine Appearance Clear Urine pH 7.5 Ur Specific [place] 1.018 Urine Protein Negative Urine Glucose (UA) Negative Urine Ketones 1+ H Urine Blood Negative Urine Nitrite Negative Urine Bilirubin Negative Urine Urobilinogen Negative Ur Leukocyte Esterase Negative SARS-CoV-2, RNA, NAAT NEGATIVE 03/16/23 03/16/23 03/16/23 05:20 05:20 05:20 WBC 14.42 H RBC 4.46 L Hgb 12.9 L Hct 37.9 L MCV 85.0 MCH 28.9 MCHC 34.0 RDW Std Deviation 43.2 RDW Coeff of Joel 14.0 Plt Count 288 MPV 11.6 Immature Gran % (Auto) Neut % (Auto) Lymph % (Auto) [place] % (Auto) Eos % (Auto) Baso % (Auto) Neut # (Auto) Lymph # (Auto) [place] # (Auto) Eos # (Auto) Baso # (Auto) Immature Gran # (Auto) Sodium 139 Potassium 4.2 Chloride 106 Carbon Dioxide 23 Anion Gap 10 BUN 18 Creatinine 1.13 Est Cr Clr Drug Dosing 84.3 Est GFR ( Amer) 78.6 Est GFR (Non-Af Amer) 67.8 BUN/Creatinine Ratio 15.9 Glucose 130 H Lactate Calcium 9.2 Magnesium Total Bilirubin 0.9 Direct Bilirubin 0.2 AST 11 L ALT 8 Alkaline Phosphatase 38 Lactate Dehydrogenase Troponin I High Sens Total Protein 7.4 Albumin 4.2 Globulin Albumin/Globulin Ratio Lipase TSH 0.687 Free T4 Free T3 Urine Color Urine Appearance Urine pH Ur Specific [place] Urine Protein Urine Glucose (UA) Urine Ketones Urine Blood Urine Nitrite Urine Bilirubin Urine Urobilinogen Ur Leukocyte Esterase SARS-CoV-2, RNA, NAAT 03/16/23 03/16/23 05:20 05:20 WBC RBC Hgb Hct MCV MCH MCHC RDW Std Deviation RDW Coeff of Joel Plt Count MPV Immature Gran % (Auto) Neut % (Auto) Lymph % (Auto) [place] % (Auto) Eos % (Auto) Baso % (Auto) Neut # (Auto) Lymph # (Auto) [place] # (Auto) Eos # (Auto) Baso # (Auto) Immature Gran # (Auto) Sodium Potassium Chloride Carbon Dioxide Anion Gap BUN Creatinine Est Cr Clr Drug Dosing Est GFR ( Amer) Est GFR (Non-Af Amer) BUN/Creatinine Ratio Glucose Lactate Calcium Magnesium Total Bilirubin Direct Bilirubin AST ALT Alkaline Phosphatase Lactate Dehydrogenase Troponin I High Sens Total Protein Albumin Globulin Albumin/Globulin Ratio Lipase TSH Free T4 1.14 Free T3 3.17 Urine Color Urine Appearance Urine pH Ur Specific [place] Urine Protein Urine Glucose (UA) Urine Ketones Urine Blood Urine Nitrite Urine Bilirubin Urine Urobilinogen Ur Leukocyte Esterase SARS-CoV-2, RNA, NAAT Diagnostic Findings Telemetry personally reviewed: Atrial flutter with controlled or slow ventricular response. ECG personally reviewed as noted above in HPI. Echo 03/16/2023: EF 55 to 60%. Severe concentric LVH. Mildly dilated RV with normal systolic function. Moderate biatrial dilation. Mild mitral regurgitation. RVSP 42. Atrial flutter. History and physical report reviewed. Surgical consultation report reviewed. Imaging reports reviewed as noted above in HPI. Labs reviewed as noted above in HPI. Medications Administered Current Inpatient Medications Atenolol (Atenolol 50 Mg Tablet) 50 mg PO QAM [facility] Stop: 04/15/23 08:59 Last Admin: 03/16/23 08:09 Dose: 50 mg Clonidine HCl (Clonidine Hcl 0.1 Mg Tab) 0.1 mg PO TID PRN PRN Reason: Hypertension Stop: 04/15/23 01:01 Last Admin: 03/16/23 11:01 Dose: 0.1 mg Enoxaparin Sodium (Enoxaparin Inj 40 Mg/0.4 Ml Syr) 40 mg SQ QAM [facility] Stop: 04/15/23 08:59 Last Admin: 03/16/23 09:48 Dose: 40 mg Hydralazine HCl (Hydralazine Hcl 20 Mg/Ml Vial) 10 mg IV Q2H PRN PRN Reason: SBP > 180 or DBP > 110 Stop: 04/15/23 12:29 Lactated Ringer's (Lr) 1,000 mls @ 100 mls/hr IV .Q10H [facility] Stop: 03/16/23 22:59 Last Admin: 03/16/23 14:15 Dose: 80 mls/hr Ampicillin Sodium/Sulbactam Sodium 3,000 mg/ Sodium Chloride 108 mls @ 200 mls/hr IV Q6H [facility]; Protocol Stop: 03/26/23 11:14 Last Infusion: 03/16/23 13:27 Dose: Infused Lamotrigine (Lamotrigine 100 Mg Tab) 100 mg PO HS [facility] Stop: 04/15/23 20:59 Lisinopril (Lisinopril 20 Mg Tab) 20 mg PO DAILY [facility] Stop: 04/15/23 08:59 Last Admin: 03/16/23 08:08 Dose: 20 mg Morphine Sulfate (Morphine Sulfate 2 Mg/Ml Carp) 2 mg IV Q4H PRN PRN Reason: Pain Stop: 03/30/23 01:01 Last Admin: 03/16/23 15:41 Dose: 2 mg Ondansetron HCl (Ondansetron Inj 2 Mg/Ml 2 Ml Vial) 4 mg IV Q6H PRN PRN Reason: Nausea And Vomiting Stop: 04/15/23 01:01 Last Admin: 03/16/23 08:05 Dose: 4 mg Pantoprazole Sodium (Pantoprazole 40 Mg Tab) 40 mg PO DAILY [facility] Stop: 04/15/23 08:59 Last Admin: 03/16/23 08:08 Dose: 40 mg Pravastatin Sodium (Pravastatin Sod 10 Mg Tab) 10 mg PO [facility] Stop: 04/15/23 20:59 Spironolactone (Spironolactone 100 Mg Tab) [facility] [place] [place] Stop: 04/15/23 08:59 Last Admin: 03/16/23 08:08 Dose: 100 mg Trazodone HCl (Trazodone Hcl 100 Mg Tab) 100 mg PO [facility] Stop: 04/15/23 20:59 PG Care Time/CCT Total # of Minutes Spent Total Time Spent with Patient: Total time spent is greater than 50% in coordination of care (as documented) at patient's floor/unit and/or counseling patient: Coding Level of Care Code 86712 INT INP/OBS CARE MIN Diagnoses Atrial flutter I48.92 Hypertension I10 Mitral regurgitation I34.0 Abdominal pain R10.9
[2023-03-16] MEDS: traZODone HCL 100 MG TAB PO SCH (20:19)
[2023-03-16] MEDS: PRAVASTATIN SOD 10 MG TAB PO SCH (20:19)
[2023-03-16] MEDS: lamoTRIgine 100 MG TAB PO SCH (20:19)
[2023-03-17] MEDS: AMPICILLIN/SULBACTAM SOD 3,000 MG in 0.9 % SODIUM CHLORIDE 100 ML IV SCH ×4 (01:45→18:42)
[2023-03-17] MEDS: MoRPHine SULFATE 2 MG/ML CARP IV PRN ×4 (01:50→23:35)
[2023-03-17 06:20] LABS: Basophils # (auto) 0.03 K/uL (0-0.2); Basophils % (auto) 0.2 %; Eosinophils # (auto) 0.01 K/uL (0-0.50); Eosinophils % (auto) 0.1 %; Hematocrit (blood only) 38.1 % (42.0-52.0); Hemoglobin 12.8 g/dl (14.0-18.0); Immature Granulocytes # (auto) 0.09 K/uL (0.01-0.20); Immature Granulocytes % (auto) 0.7 %; Lymphocytes % (auto) 7.2 %; Mean Corpuscular Hemoglobin 28.6 pg (25.0-34.0); Mean Corpuscular Hgb Conc 33.6 g/dL (32.0-36.0); Mean Platelet Volume 11.7 fL (9.4-12.4); Monocytes # (auto) 1.84 K/uL (0.11-0.59); Monocytes % (auto) 13.3 %; Neutrophils # (auto) 10.86 K/uL (1.40-6.50); Neutrophils % (auto) 78.5 %; Platelet Count 260 K/uL (130-400); RDW Coefficient of Variation 14.1 % (11.5-14.5); RDW Standard Deviation 43.8 fL (36.4-46.3); Red Blood Count 4.48 M/uL (4.70-6.10); White Blood Count 13.83 K/ul (4.8-10.8)
[2023-03-17 06:40] LABS: BUN Creatinine Ratio 18.2 (10-20); Calcium 9.3 mg/dl (8.6-10.3); Creatinine Clr Calc Pharmacy 108.2 ml/min; Est GFR (African American) 104.5 ml/min; Est GFR (Non-African American) 90.1 ml/min; Potassium 4.3 mmol/L (3.5-5.1)
[2023-03-17] MEDS: PANTOprazole 40 MG TAB PO SCH (08:00)
[2023-03-17] MEDS: lisinopril 20 MG TAB PO SCH (08:00)
[2023-03-17] MEDS: ATENOLOL 50 MG TABLET PO SCH (08:00)
[2023-03-17] MEDS: ENOXAPARIN INJ 40 MG/0.4 ML SYR SQ SCH (08:00)
[2023-03-17] MEDS: SPIRONOLACTONE 100 MG TAB PO SCH (08:01)
[2023-03-17] MEDS ORDERED: amLODIPine BESYLATE 5 MG TAB PO ONE (10:35)
--- NOTE | 2023-03-17 11:16 | Surgery Progress Note ---
Date of Service March 17, 2023 Assessment & Plan (1) Enlarged lymph nodes: Plan: consider IR biopsy (2) Abdominal pain: Plan: Improving. ? enteritis given diarrhea. No clinical or imaging signs of a ppendicitis. OK to start clear liquids and advance if tolerates. Admission and Anticipated Discharge Date Admission Date: March 15, 2023 Subjective Feels better. Pain is improved and is less tender/ bloated. Mild nausea is present. Wondering about starting diet. Physical Exam Constitutional: WD/WN, vitals as above Eyes: PERRL, conjunctivae normal, anicteric sclerae Respiratory: normal respiratory effort, lungs clear to auscultation Gastrointestinal (Abdomen): Inspection/Auscultation: abdomen normal to inspection and normal bowel sounds; abdomen not distended Percussion/Palpation: abdomen soft; abdomen nontender and no guarding Musculoskeletal: Extremities: extremities normal to inspection; no cyanosis Neurologic: awake; no focal motor deficits Results & Data Vital Signs (Past 12 Hours) Vital Signs Temp Pulse Resp BP Pulse Ox O2 Del Method 03/17/23 10:00 179/80 H 03/17/23 07:44 37.1 C 47 L 17 182/83 H 97 Room Air 03/17/23 06:46 178/86 H 03/17/23 03:55 37.0 C 46 L 20 186/85 H 96 Room Air 03/16/23 23:41 37.1 C 51 L 20 168/86 H 97 Room Air Laboratory Results 03/17/23 03/17/23 Range/Units 05:27 05:27 WBC 13.83 H (4.8-10.8) K/ul RBC 4.48 L (4.70-6.10) M/uL Hgb 12.8 L (14.0-18.0) g/dl Hct 38.1 L (42.0-52.0) % MCV 85.0 (80.0-100.0) fL MCH 28.6 (25.0-34.0) pg MCHC 33.6 (32.0-36.0) g/dL RDW Std Deviation 43.8 (36.4-46.3) fL RDW Coeff of Joel 14.1 (11.5-14.5) % Plt Count 260 (130-400) K/uL MPV 11.7 (9.4-12.4) fL Immature Gran % (Auto) 0.7 % Neut % (Auto) 78.5 % Lymph % (Auto) 7.2 % [place] % (Auto) 13.3 % Eos % (Auto) 0.1 % Baso % (Auto) 0.2 % Neut # (Auto) 10.86 H (1.40-6.50) K/uL Lymph # (Auto) 1.00 L (1.2-3.4) K/uL [place] # (Auto) 1.84 H (0.11-0.59) K/uL Eos # (Auto) 0.01 (0-0.50) K/uL Baso # (Auto) 0.03 (0-0.2) K/uL Immature Gran # (Auto) 0.09 (0.01-0.20) K/uL Sodium 137 (136-145) mmol/L Potassium 4.3 (3.5-5.1) mmol/L Chloride 104 (98-107) mmol/L Carbon Dioxide 25 (21-32) mmol/L Anion Gap 8 (3-11) BUN 16 (6-23) mg/dl Creatinine 0.88 (0.6-1.4) mg/dl Est Cr Clr Drug Dosing 108.2 ml/min Est GFR ( Amer) 104.5 ml/min Est GFR (Non-Af Amer) 90.1 ml/min BUN/Creatinine Ratio 18.2 (10-20) Glucose 111 H (70-99(Fasting)) mg/dl Calcium 9.3 (8.6-10.3) mg/dl
[2023-03-17] MEDS: SODIUM CHLORIDE 0.9% 1000ML 1,000 ML IV SCH ×2 (11:28→23:35)
[2023-03-17] MEDS: cloNIDine HCL 0.1 MG TAB PO PRN (12:27)
[2023-03-17] MEDS: hydrALAZINE HCL 20 MG/ML VIAL IV PRN ×3 (14:55→20:49)
--- NOTE | 2023-03-17 15:17 | Hospitalist Progress Note ---
Date of Service March 17, 2023 Assessment & Plan (1) Abdominal pain: Plan: Localized in right lower quadrant area. Acute appendicitis has been ruled out. General surgery consultation appreciated. HIDA scan scheduled for tomorrow, March 18 . Continue clear liquid diet and intravenous Unasyn for now. LFTs and lipase are within normal limits. CT of the abdomen above with concerning finding of enlarged RIGHT aortocaval/perigastric node measuring 4.1 x 3.1 cm. This probably warrants PET CT scanning as an outpatient. RUQUS with cholelithiasis without evidence of acute cholecystitis. (2) Enlarged lymph nodes: Plan: This will need further outpatient follow-up. Suggest PET CT scan (3) Hypertension: Plan: Currently on atenolol, lisinopril, spironolactone. Amlodipine has been added. Will use intravenous hydralazine as needed. Telemetry. (4) GERD (gastroesophageal reflux disease): Plan: Protonix therapy . He does have a history of peptic ulcer disease (5) Bipolar disorder: Plan: Stable. Continue Lamotrigine (6) New onset atrial flutter: Plan: Telemetry. Cardiac echo. Cardiology consultation appreciated. If he does not need surgery, will start Eliquis. Thyroid profile unremarkable. Plan Eventual return to the custodial Admission and Anticipated Discharge Date Admission Date: March 15, 2023 Subjective Alert and oriented. No acute distress. Surgery consultation noted. HIDA scan is pending. He is now on a clear liquid diet and IV fluids have been tapered down. Amlodipine added for better blood pressure control. Tenormin dosage has been down titrated due to intermittent bradycardia he remains on Unasyn, day 2 until cholecystitis has been ruled out. Review of Systems Review of Systems: Constitutional-no fever or chills ENT-no blurred vision, no double vision, no epistaxis, no sore throat Respiratory-no cough, no wheezing, no shortness of breath Cardiac-he occasionally feels palpitations. No syncope. No chest pain GI-right lower quadrant discomfort with nausea. No vomiting. No melena. No hematochezia -no urinary retention, no urinary incontinence, no dysuria, no hematuria Musculoskeletal-no joint pain, no muscle tenderness Skin-no bruising, no rashes, no pruritus Neuro-no isolated weakness, no paresthesia, no weakness Psych-no depression, no anxiety Physical Exam Physical Exam: General-alert and oriented x3, no fevers, no chills HEENT-head atraumatic and normocephalic, pupils equal and reactive to light, extraocular muscles intact Neck-no lymphadenopathy or thyromegaly, trachea midline Chest-clear to auscultation percussion. No rales wheezing or rhonchi Cardiac-irregular rhythm. Normal S1 and S2 Abdomen-normal bowel sounds, no hepatosplenomegaly. Right lower quadrant tenderness. No masses. No rebound or guarding Extremities-no cyanosis, clubbing, or edema Neuro-cranial nerves II through XII intact, motor and sensory function within normal limits, strength symmetrical , no focal deficits Psych-normal affect, normal mood Results & Data Results & Data Vital Signs (Past 12 Hours) Vital Signs Temp Pulse Pulse Resp BP Pulse Ox O2 Del Method 03/17/23 15:03 40 L 03/17/23 14:26 188/92 H 03/17/23 12:34 44 L 03/17/23 12:22 37.1 C 60 19 195/93 H 97 Room Air 03/17/23 10:00 179/80 H 03/17/23 07:44 37.1 C 47 L 17 182/83 H 97 Room Air 03/17/23 06:46 178/86 H 03/17/23 03:55 37.0 C 46 L 20 186/85 H 96 Room Air Laboratory Results 03/17/23 05:27 03/17/23 05:27 PG Care Time/CCT Total # of Minutes Spent Total Time Spent with Patient: Total time spent is greater than 50% in coordination of care (as documented) at patient's floor/unit and/or counseling patient: Coding Level of Care Code 32969 SUB INP/OBS CARE 3/50MIN Diagnoses Abdominal pain R10.9 Enlarged lymph nodes R59.9 Hypertension I10 GERD (gastroesophageal reflux disease) K21.9 Bipolar disorder F31.9 New onset atrial flutter I48.92
[2023-03-17] MEDS: traZODone HCL 100 MG TAB PO SCH (20:51)
[2023-03-17] MEDS: lamoTRIgine 100 MG TAB PO SCH (20:52)
[2023-03-17] MEDS: PRAVASTATIN SOD 10 MG TAB PO SCH (20:52)
[2023-03-18 00:51] LABS: Adenovirus F 40/41 PCR Not Detected (NotDetected); Astrovirus PCR Not Detected (NotDetected); Campylobacter PCR Not Detected (NotDetected); Cryptosporidium PCR Not Detected (NotDetected); Cyclospora cayetanensis PCR Not Detected (NotDetected); Entamoeba histolytica PCR Not Detected (NotDetected); Enteroaggregative E.coli(EAEC) Not Detected (NotDetected); Enteropathogenic E.coli (EPEC) Not Detected (NotDetected); Enterotoxigenic E.coli (ETEC) Not Detected (NotDetected); Giardia lamblia PCR Not Detected (NotDetected); Norovirus GI/GII PCR Not Detected (NotDetected); Plesiomonas shigelloides PCR Not Detected (NotDetected); Rotavirus A PCR Not Detected (NotDetected); Salmonella PCR Not Detected (NotDetected); Sapovirus PCR Not Detected (NotDetected); Shiga-like Toxin E.coli (STEC) Not Detected (NotDetected); Shigella/Enteroinvasive E.coli Not Detected (NotDetected); Vibrio cholerae PCR Not Detected (NotDetected); Vibrio species PCR Not Detected (NotDetected); Yersinia enterocolitica PCR Not Detected (NotDetected)
[2023-03-18] MEDS: AMPICILLIN/SULBACTAM SOD 3,000 MG in 0.9 % SODIUM CHLORIDE 100 ML IV SCH ×3 (00:53→13:50)
--- NOTE | 2023-03-18 05:46 | Electrocardiogram Report ---
Test Reason : Blood Pressure : / mmHG Vent. Rate : 075 BPM Atrial Rate : 277 BPM P-R Int : 000 ms QRS Dur : 092 ms QT Int : 422 ms P-R-T Axes : 000 043 046 degrees QTc Int : 472 ms Atrial flutter with variable A-V block Abnormal ECG No previous ECGs available Confirmed by Angel Alberto ([id number]) on 03/18/2023 5:46:08 AM Referred By: [facility] Confirmed By:Angel Alberto
[2023-03-18 06:20] LABS: Basophils # (auto) 0.04 K/uL (0-0.2); Basophils % (auto) 0.3 %; Eosinophils # (auto) 0.01 K/uL (0-0.50); Eosinophils % (auto) 0.1 %; Hemoglobin 12.5 g/dl (14.0-18.0); Immature Granulocytes # (auto) 0.17 K/uL (0.01-0.20); Immature Granulocytes % (auto) 1.3 %; Lymphocytes # (auto) 0.95 K/uL (1.2-3.4); Lymphocytes % (auto) 7.1 %; Mean Corpuscular Hgb Conc 34.7 g/dL (32.0-36.0); Mean Corpuscular Volume 83.5 fL (80.0-100.0); Mean Platelet Volume 11.4 fL (9.4-12.4); Monocytes # (auto) 1.66 K/uL (0.11-0.59); Monocytes % (auto) 12.3 %; Neutrophils # (auto) 10.64 K/uL (1.40-6.50); Neutrophils % (auto) 78.9 %; Platelet Count 259 K/uL (130-400); RDW Coefficient of Variation 14.1 % (11.5-14.5); RDW Standard Deviation 43.1 fL (36.4-46.3); Red Blood Count 4.31 M/uL (4.70-6.10); White Blood Count 13.47 K/ul (4.8-10.8)
[2023-03-18] MEDS: MoRPHine SULFATE 2 MG/ML CARP IV PRN (06:26)
[2023-03-18 06:35] LABS: BUN Creatinine Ratio 16.5 (10-20); Calcium 8.9 mg/dl (8.6-10.3); Est GFR (Non-African American) 91.4 ml/min; Potassium 3.7 mmol/L (3.5-5.1)
[2023-03-18] MEDS: lisinopril 20 MG TAB PO SCH (08:34)
[2023-03-18] MEDS: SPIRONOLACTONE 100 MG TAB PO SCH (08:35)
[2023-03-18] MEDS: PANTOprazole 40 MG TAB PO SCH (08:35)
[2023-03-18] MEDS: hydrALAZINE HCL 20 MG/ML VIAL IV PRN (08:36)
[2023-03-18] MEDS: ENOXAPARIN INJ 40 MG/0.4 ML SYR SQ SCH (08:55)
[2023-03-18] MEDS ORDERED: amLODIPine BESYLATE 5 MG TAB PO SCH (09:00)
[2023-03-18] MEDS ORDERED: ATENOLOL 25 MG TABLET PO SCH (09:00)
[2023-03-18] MEDS ORDERED: amLODIPine BESYLATE 5 MG TAB PO ONE (09:15)
--- NOTE | 2023-03-18 13:34 | Nuclear Medicine Report ---
NUCLEAR MEDICINE HEPATOBILIARY SCAN CLINICAL HISTORY: Abdominal pain. Gallstones. COMPARISON: CT of the abdomen and pelvis March 15, 2023 and right upper quadrant ultrasound March 16. TECHNIQUE: 5.2 mCi of technetium 99m Choletec IV was injected at 12:15 PM on March 18, 2023. Immediat shamika following injection, imaging of the abdomen was carried out for 60 minutes in the anterior projec tion. FINDINGS: Hepatic uptake of radiotracer is prompt and homogeneous. Activity is identified within the gallbladder and common bile duct at 20 minutes. Small bowel activity was noted at 60 minutes. IMPRESSION: No evidence for acute or chronic cholecystitis. ACT 112: Negative or not required by law. Electronically signed by: Duane Ortiz M.D. 03/18/2023 1:32 PM
--- NOTE | 2023-03-18 13:58 | Hospitalist Progress Note ---
Date of Service March 18, 2023 Assessment & Plan (1) Abdominal pain: Plan: Localized in right lower quadrant area. Acute appendicitis has been ruled out. General surgery consultation appreciated. HIDA scan scheduled for tomorrow, March 18 . Continue clear liquid diet and intravenous Unasyn for now. LFTs and lipase are within normal limits. CT of the abdomen above with concerning finding of enlarged RIGHT aortocaval/perigastric node measuring 4.1 x 3.1 cm. This probably warrants PET CT scanning as an outpatient. RUQUS with cholelithiasis without evidence of acute cholecystitis. (2) Enlarged lymph nodes: Plan: This will need further outpatient follow-up. Suggest PET CT scan (3) Hypertension: Plan: Currently on atenolol, lisinopril, spironolactone. Amlodipine has been added. Will use intravenous hydralazine as needed. Telemetry. (4) GERD (gastroesophageal reflux disease): Plan: Protonix therapy . He does have a history of peptic ulcer disease (5) Bipolar disorder: Plan: Stable. Continue Lamotrigine (6) New onset atrial flutter: Plan: Telemetry. Cardiac echo. Cardiology consultation appreciated. If he does not need surgery, will start Eliquis. Thyroid profile unremarkable. Plan [facility]ual [facility] to the [facility] Admission and Anticipated Discharge Date Admission Date: March 15, 2023 Review of Systems Review of Systems: Constitutional-no fever or chills ENT-no blurred vision, no double vision, no epistaxis, no sore throat Respiratory-no cough, no wheezing, no shortness of breath Cardiac-he occasionally feels palpitations. No syncope. No chest pain GI-right lower quadrant discomfort with nausea. No vomiting. No melena. No hematochezia -no urinary retention, no urinary incontinence, no dysuria, no hematuria Musculoskeletal-no joint pain, no muscle tenderness Skin-no bruising, no rashes, no pruritus Neuro-no isolated weakness, no paresthesia, no weakness Psych-no depression, no anxiety Physical Exam Physical Exam: General-alert and oriented x3, no fevers, no chills HEENT-head atraumatic and normocephalic, pupils equal and reactive to light, extraocular muscles intact Neck-no lymphadenopathy or thyromegaly, trachea midline Chest-clear to auscultation percussion. No rales wheezing or rhonchi Cardiac-irregular rhythm. Normal S1 and S2 Abdomen-normal bowel sounds, no hepatosplenomegaly. Right lower quadrant tenderness. No masses. No rebound or guarding Extremities-no cyanosis, clubbing, or edema Neuro-cranial nerves II through XII intact, motor and sensory function within normal limits, strength symmetrical , no focal deficits Psych-normal affect, normal mood Results & Data Results & Data Vital Signs (Past 12 Hours) Vital Signs Temp Pulse Pulse Pulse Resp BP BP 03/18/23 13:54 159/77 H 03/18/23 11:42 36.7 C 75 18 165/83 H 03/18/23 10:55 75 03/18/23 10:47 163/89 H 03/18/23 09:27 157/85 H 03/18/23 08:00 36.9 C 78 18 184/95 H 03/18/23 03:00 37.2 C 79 21 175/85 H Pulse Ox O2 Del Method 03/18/23 13:54 03/18/23 11:42 97 Room Air 03/18/23 10:55 03/18/23 10:47 03/18/23 09:27 03/18/23 08:00 97 Room Air 03/18/23 03:00 95 Room Air PG Care Time/CCT Total # of Minutes Spent Total Time Spent with Patient: Total time spent is greater than 50% in coordination of care (as documented) at patient's floor/unit and/or counseling patient: Coding Diagnoses Abdominal pain R10.9 Enlarged lymph nodes R59.9 Hypertension I10 GERD (gastroesophageal reflux disease) K21.9 Bipolar disorder F31.9 New onset atrial flutter I48.92
--- NOTE | 2023-03-18 14:11 | Discharge Summary ---
Date of Service March 18, 2023 Admission HPI Per Admitting Provider Graham Hurt is a 63yo male with history of HTN, Bipolar disorder, GERD and HCV s/p treatment with cure presenting from [facility] with complaint of abdominal pain. Patient reports he was in his usual state of health until yesterday AM 03/14/23 when he developed severe right sided abdominal pain. The pain started after he woke up - had not eaten yet. He had associated nausea with non-bloody/non-bilious vomiting as well as watery diarrhea. His symptoms resolved on their own during the day and he was able to sleep without difficulty. Pain returned this morning 03/15/23 after patient woke up. He had recurrence of nausea but no diarrhea. He was seen at the [facility] and EMS was called for hospital transfer. He subjectively feels hot but no documented fever. Denies chills, cough, SOB, urinary complaints. No weight loss or night sweats. Patient reports overall he is eating and drinking well. Bowels are moving without difficulty and no urinary complaints. Patient hypertensive in the ER. Found to be in atrial flutter ER Course: Toradol Labetalol Principal Diagnosis Suspected viral gastroenteritis, enlarged intra-abdominal portacaval lymph node which is possibly reactive, uncontrolled hypertension Discharge Exam General-alert and oriented x3, no fevers, no chills HEENT-head atraumatic and normocephalic, pupils equal and reactive to light, extraocular muscles intact Neck-no lymphadenopathy or thyromegaly, trachea midline Chest-clear to auscultation percussion. No rales wheezing or rhonchi Cardiac-regular rate and rhythm, normal S1 and S2 Abdomen-normal bowel sounds, no hepatosplenomegaly Extremities-no cyanosis, clubbing, or edema Neuro-cranial nerves II through XII intact, motor and sensory function within normal limits, strength symmetrical , no focal deficits Psych-normal affect, normal mood Discharge Data Allergies Allergy/AdvReac Type Severity Reaction Status Date / Time No Known Allergies Allergy Verified 03/15/23 22:08 Consultations 03/15/23 22:37 ED Decision to Admit Stat 03/16/23 08:21 Consult Cardiology Routine 03/16/23 11:15 Consult General Surgery Routine Ordered Studies 03/15/23 19:19 CT Abd and Pelvis [CT abd pelvis IV con only] Stat 03/15/23 22:06 US gallbladder Stat Hospital Course (1) Abdominal pain: HIDA scan negative for acute cholecystitis. This appears to be a viral gastroenteritis. Symptoms are minimal at this time (2) Enlarged lymph nodes: Enlarged portacaval intra-abdominal node may be reactive. This probably warrants follow-up as an outpatient. Suggest PET CT scan to determine activity of the node (3) Hypertension: Amlodipine has been added to his regimen and uptitrated today, March 18. Spironolactone discontinued. Continue atenolol and lisinopril (4) GERD (gastroesophageal reflux disease): Stable. Continue PPI therapy (5) Bipolar disorder: Stable. Continue current medications (6) New onset atrial flutter: Stable. Appreciate cardiology consultation. Eliquis has been started today, March 18. Rate is controlled with beta-lauren Plan [facility], March 18 Total Time Total Time Spent Total Time Spent (In Minutes): 40 minutes Discharge Plan Discharge Items [facility]position[facility] Reason For Visit: ABDOMINAL PAIN Discharge Diagnosis: Suspected viral gastroenteritis, enlarged portacaval intra-abdominal lymph node which is possibly reactive, atrial flutter, uncontrolled hypertension Activity: Resume your previous activity Non-emergency contact: Primary Care Provider Call non-emergency contact if: your symptoms worsen Follow-up/Referrals: Jones ANDERSON [Primary Care Provider] - Diet: Regular and Heart Healthy Addtl Attending Provider Instructions: Amlodipine has been added to the blood pressure regimen. Atenolol dosage has been decreased. Spironolactone has been discontinued Pending Studies at Discharge: No Stand-Alone Forms: My [facility] Skilled Items Patient informed of condition?: Yes Discharge Level of Care: Other Communicable Disease: No Discharge Prognosis: Stable Lines: None Urinary Catheter: No Medications and DC Order Prescriptions: New atenolol 25 mg Tablet 25 mg PO QAM Qty: 30 0RF Eliquis 5 mg Tablet 5 mg PO BID Qty: 60 0RF amlodipine 10 mg tablet 10 mg PO DAILY Qty: 30 0RF Continued lisinopril 20 mg Tablet 20 mg PO DAILY pravastatin 10 mg Tablet 10 mg PO HS trazodone 100 mg Tablet 100 mg PO HS diclofenac sodium 50 mg Tablet,Delayed Release (Dr/Ec) 50 mg PO BID PRN (Reason: Pain) lamotrigine [Lamictal] 100 mg Tablet 100 mg PO HS omeprazole 20 mg Tablet,Delayed Release (Dr/Ec) 20 mg PO DAILY Discontinued spironolactone 100 mg Tablet 100 mg PO QAM atenolol 50 mg Tablet 50 mg PO QAM Discharge Orders: Discharge Order (Routine); Ordered 03/18/23 Ordered By: Sebastián Lund Admission Data Admit Date/Time: 03/15/23 22:49 Attending Provider: Sebastián Lund Admit Provider: Marci London Primary Care Provider: [facility] Other Providers: Marci London ; Noel Tran ; Leno Oneill ; Preston Funk ; Shun Flores ; Isaías Hogan ; Connor Jasso Jr ; Angel Alberto ; Lilo Richardson ; Ruba Vargas ; Farooq Cortez ; Jonnie Rodas ; Sebastián Cuevas ; Ellen Ward ; Sudha Coon ; Surya Saucedo ; Ajay Hernadez ; Shun Terrell V. ; Sebastián Catherine ; Duyen Molina ; Dhruv Mcintyre ; Lc Clinton ; Dennys Fontanez ; Anish Loza ; Malina Silver ; Joe Justin ; Dilan Hernandez ; Jacquie Rogers ; Franki Hardy Coding Level of Care Code 49317 INP/OBS DISCH >30 MIN Diagnoses Abdominal pain R10.9 Enlarged lymph nodes R59.9 Hypertension I10 GERD (gastroesophageal reflux disease) K21.9 Bipolar disorder F31.9 New onset atrial flutter I48.92
[2023-03-18] MEDS ORDERED: APIXABAN 5 MG TABLET PO SCH ×2 (14:15→21:00)
[2023-03-19] MEDS ORDERED: amLODIPine BESYLATE 5 MG TAB PO SCH ×2 (09:00)
== END 2023-03-18 16:50 | DRG 392 ==
LOC: ED 18:23 → 2S 22:49 → SUATTDRO 22:49 → 2S 23:38

== ENCOUNTER 2023-07-02 15:11 | Inpatient (IN) ==
[2023-07-02 16:40] LABS: Basophils # (auto) 0.05 K/uL (0.00-0.20); Basophils % (auto) 0.6 %; Eosinophils # (auto) 0.23 K/uL (0.00-0.50); Eosinophils % (auto) 2.6 %; Hematocrit (blood only) 33.5 % (42.0-52.0); Hemoglobin 11.1 g/dl (14.0-18.0); Immature Granulocytes # (auto) 0.03 K/uL (0.01-0.20); Immature Granulocytes % (auto) 0.3 %; Lymphocytes # (auto) 0.98 K/uL (1.20-3.40); Mean Corpuscular Hemoglobin 27.1 pg (25.0-34.0); Mean Corpuscular Hgb Conc 33.1 g/dL (32.0-36.0); Mean Corpuscular Volume 81.9 fL (80.0-100.0); Mean Platelet Volume 11.2 fL (9.4-12.4); Monocytes # (auto) 1.06 K/uL (0.11-0.59); Monocytes % (auto) 11.9 %; Neutrophils # (auto) 6.56 K/uL (1.40-6.50); Neutrophils % (auto) 73.6 %; Platelet Count 369 K/uL (130-400); RDW Coefficient of Variation 15.3 % (11.5-14.5); RDW Standard Deviation 45.2 fL (36.4-46.3); Red Blood Count 4.09 M/uL (4.70-6.10); White Blood Count 8.91 K/ul (4.8-10.8)
[2023-07-02 16:56] LABS: Albumin Globulin Ratio 1.3 (0.9-2); Albumin Level 4.2 gm/dl (3.4-5.0); BUN Creatinine Ratio 10.4 (10-20); Bilirubin,Total 0.6 mg/dl (0.2-1.0); Calcium 9.6 mg/dl (8.6-10.3); Creatinine Clr Calc Pharmacy 47.6 ml/min; Est GFR (African American) 44.2 ml/min; Est GFR (Non-African American) 38.1 ml/min; Globulin 3.3 gm/dl (2.5-4.0); Potassium 4.3 mmol/L (3.5-5.1); Total Protein 7.5 gm/dl (6.0-8.3)
--- NOTE | 2023-07-02 18:32 | Ultrasound Report ---
ABDOMINAL ULTRASOUND, RIGHT UPPER QUADRANT HISTORY: Right upper quadrant pain. COMPARISON: Abdomen and pelvis March 15, 2023 and right upper quadrant ultrasound March 16, 2023. FINDINGS: No hepatic lesions are identified. There is no biliary ductal dilatation. The common bile d uct measures 2 mm in caliber. The pancreatic body is normal. Head and tail are obscured. Sludge withi n the gallbladder is noted as well as multiple small stones. No sonographic Aguiar sign was elicited. Gallbladder wall thickness is at the upper limits of normal. The gallbladder is mildly distended. Th ere is no right hydronephrosis. Multiple hypoechoic gastrohepatic ligament, evy hepatis and aortoca freddy nodes are noted. Index node measures approximately 4.4 x 3.2 cm. These correspond to the enlarged lymph nodes on prior CT. IMPRESSION: 1. Cholelithiasis and sludge within the gallbladder. Mildly distended gallbladder with borderline gal lbladder wall thickening. No sonographic Aguiar sign. Although not strongly suggestive, acute cholecy stitis cannot be excluded. A hepatobiliary scan could be obtained as indicated. 2. Multiple pathologically enlarged upper abdominal lymph nodes, as described above. These are suspic ious for malignancy. If not already evaluated, nonemergent Oncology consultation is recommended. ACT 112: Negative or not required by law. Electronically signed by: Duane Ortiz M.D. 07/02/2023 6:29 PM
[2023-07-02] MEDS ORDERED: SODIUM CHLORIDE 0.9% 1,000 ML IV ONE (19:43)
--- NOTE | 2023-07-02 19:45 | Emergency Department Note ---
Impression & Plan MAK (acute kidney injury), Abdominal pain, Abdominal lymphadenopathy, Paravertebral mass ED Provider Note NAME: LILLY [id number] JOSH AGE: 63 SEX: M ARRIVES VIA: Walk-In INFORMANT: Patient ED PROVIDER(S): Shawn Mejia MD CHIEF COMPLAINT: Abdominal pain, nausea, vomiting, diarrhea, referred. PLAN: Disposition: Admit MEDICAL DECISION MAKING: The patient is a 63-year-old gentleman, current half-way inmate at [facility] with past medical history of atrial flutter on Eliquis, hypertension, hyperlipidemia, cholelithiasis who presents to the emergency department referred from [facility] for evaluation of ongoing abdominal pain, nausea and diarrhea since March when he was admitted to this facility. At the time it was suspected that the patient had a viral gastroenteritis. It was noted that he did have gallstones which the patient reports he was worried was the cause of his symptoms currently. Of note HIDA scan 03/18/2023 was negative. Outpatient PET scan was recommended to further characterize lymphadenopathy that was noted but to the patient's knowledge that this has not been performed. The patient reports ongoing weight loss, night sweats and feverishness. Of note, the patient did arrive to emergency department during time of high volume, acuity and prolonged emergency department waiting times. Critical pathways initiated from triage. On my evaluation the patient is no acute distress, afebrile with stable vital si gns. He appears clinically dry. He is generalized abdominal discomfort without discrete tenderness. WBC and platelets within normal limits. H/H approximate to prior. Chemistry without metabolic acidosis. Creatinine is 1.8, increased from baseline within normal limits. LFTs are unremarkable. Lipase is not elevated. Gallbladder ultrasound performed demonstrates cholelithiasis and sludge with mildly distended gallbladder and borderline gallbladder wall thickening though no sonographic Aguiar sign. Additionally, patient's LFTs are normal and so cholecystitis considered less likely. However note is made of multiple pathologically enlarged upper abdominal lymph nodes suspicious for malignancy. Additionally, CT of the abdomen pelvis was performed and demonstrates right- sided paravertebral mass measuring 4 x 2 cm. Given the patient's acute renal insufficiency in the setting of ongoing symptoms since March he does agree with plan for admission for further management. Dr. London, [facility] hospitalist to evaluate the patient for admission. Triage Nursing notes reviewed and agree them. Prior/outside medical records reviewed Vital Signs: reviewed Differential diagnosis: Gastroenteritis, food borne illness, infections, appendicitis, diverticulitis, inflammatory bowel disease, obstruction, GI bleed, biliary pathology, volvulus, as well as other pathologies. ER treatment provided: See below. Laboratory studies: See below Imaging studies: See below Consultation(s): Dr. London [facility] hospitalist. HPI: The patient is a 63-year-old gentleman, current half-way inmate at [facility] with past medical history of atrial flutter on Eliquis, hypertension, hyperlipidemia, cholelithiasis who presents to the emergency department referred from [facility] for evaluation of ongoing abdominal pain, nausea and diarrhea since March when he was admitted to this facility. At the time it was suspected that the patient had a viral gastroenteritis. It was noted that he did have gallstones which the patient reports he was worried was the cause of his symptoms currently. Of note HIDA scan 03/18/2023 was negative. Outpatient PET scan was recommended to further characterize lymphadenopathy that was noted but to the patient's knowledge that this has not been performed. The patient reports ongoing weight loss, night sweats and feverishness. ROS: See above HPI for pertinent positives & negatives. A total of 10 systems reviewed and were otherwise negative. VITALS:See Below PHYSICAL EXAMINATION: GENERAL: Awake, alert, fatigued-appearing, in no distress HENT: Normocephalic, atraumatic. Oropharynx with dry mucous membranes and otherwise unremarkable. EYES: Normal conjunctiva. Sclera non-icteric. NECK: Supple. No nuchal rigidity. FROM. No JVD. RESPIRATORY: Clear to auscultation. CARDIAC: Regular rate, normal rhythm. Extremities warm and well perfused. Pulses equal. ABDOMEN: Soft, non-distended. Generalized abdominal discomfort without discrete tenderness. No rebound or guarding. No masses. RECTAL: Deferred. MUSCULOSKELETAL: Chest examination reveals no tenderness. The back is symmetrical on inspection without obvious abnormality. There is no CVA tenderness to palpation. No joint edema. LOWER EXTREMITIES: Calves are equal size bilaterally and non-tender. No edema. No discoloration. NEURO: Normal sensorium. No sensory or motor deficits noted. SKIN: No rash or jaundice noted. Shawn Mejia MD Past Med/Surg History Medical History Atrial flutter Bipolar disorder GERD (gastroesophageal reflux disease) reports prior UGIB s/p EGD showing ulcers HLD (hyperlipidemia) Hypertension Mitral regurgitation Surgical History History of back surgery History of knee surgery Family History Mother Cancer Social History Smoking Status: Former smoker Hx Alcohol Use: No Hx Substance Use: No Preferred Language: Swedish Communication Ability: Effective Battery Inspector Required: No Beliefs That Will Affect Care: None Current Living Situation: Other Current Living Situation Comment: [facility] Feels Safe at Home: Yes Assistive Devices: None Allergies Allergies Allergy/AdvReac Type Severity Reaction Status Date / Time No Known Allergies Allergy Verified 07/02/23 20:13 Home Meds Home Medications Medication Instructions Recorded Confirmed diclofenac sodium 50 mg 50 mg PO BID PRN Pain 03/15/23 07/02/23 tablet,delayed release lamotrigine 100 mg tablet 100 mg PO HS 03/15/23 07/02/23 (Lamictal) lisinopril 20 mg tablet 20 mg PO DAILY 03/15/23 07/02/23 omeprazole 20 mg tablet,delayed 40 mg PO DAILY 03/15/23 07/02/23 release pravastatin 10 mg tablet 10 mg PO HS 03/15/23 07/02/23 trazodone 100 mg tablet 200 mg PO HS 03/15/23 07/02/23 Previous Rx's Medication Instructions Recorded amlodipine 10 mg tablet 10 mg PO DAILY #30 tabs 03/18/23 apixaban 5 mg tablet (Eliquis) 5 mg PO BID #60 tabs 03/18/23 atenolol 25 mg tablet 25 mg PO QAM #30 tabs 03/18/23 Results & Data (ED) Vital Signs Vital Signs - 24 hr 07/02/23 15:23 07/02/23 19:59 07/02/23 21:00 Temperature 36.7 C Temperature Source Temporal Artery Scan Pulse Rate 82 Pulse Rate [Apical] 85 88 Respiratory Rate 18 19 19 Respiratory Effort / Characteristics Non-Labored Respiratory Depth Normal Blood Pressure 123/79 Blood Pressure [Right Arm] 167/101 H Blood Pressure Mean 93 Blood Pressure Mean [Right Arm] 123 Pulse Oximetry 96 100 100 Oxygen Delivery Method Room Air Sepsis Recent Fever Within 48 Hours No Sepsis New/Unexplained Change in Mental Status No Sepsis Action Taken by Nursing No Action Required Laboratory Data Attestation: I reviewed the patient's lab results. 07/02/23 16:15 07/02/23 16:15 Lab Results 07/02/23 07/02/23 Range/Units 16:15 16:15 WBC 8.91 (4.8-10.8) K/ul RBC 4.09 L (4.70-6.10) M/uL Hgb 11.1 L (14.0-18.0) g/dl Hct 33.5 L (42.0-52.0) % MCV 81.9 (80.0-100.0) fL MCH 27.1 (25.0-34.0) pg MCHC 33.1 (32.0-36.0) g/dL RDW Std Deviation 45.2 (36.4-46.3) fL RDW Coeff of Joel 15.3 H (11.5-14.5) % Plt Count 369 (130-400) K/uL MPV 11.2 (9.4-12.4) fL Immature Gran % (Auto) 0.3 % Neut % (Auto) 73.6 % Lymph % (Auto) 11.0 % [place] % (Auto) 11.9 % Eos % (Auto) 2.6 % Baso % (Auto) 0.6 % Neut # (Auto) 6.56 H (1.40-6.50) K/uL Lymph # (Auto) 0.98 L (1.20-3.40) K/uL [place] # (Auto) 1.06 H (0.11-0.59) K/uL Eos # (Auto) 0.23 (0.00-0.50) K/uL Baso # (Auto) 0.05 (0.00-0.20) K/uL Immature Gran # (Auto) 0.03 (0.01-0.20) K/uL Sodium 139 (136-145) mmol/L Potassium 4.3 (3.5-5.1) mmol/L Chloride 107 (98-107) mmol/L Carbon Dioxide 24 (21-32) mmol/L Anion Gap 8 (3-11) BUN 19 (6-23) mg/dl Creatinine 1.82 H (0.6-1.4) mg/dl Est Cr Clr Drug Dosing 47.6 ml/min Est GFR ( Amer) 44.2 ml/min Est GFR (Non-Af Amer) 38.1 ml/min BUN/Creatinine Ratio 10.4 (10-20) Glucose 110 H (70-99(Fasting)) mg/dl Calcium 9.6 (8.6-10.3) mg/dl Total Bilirubin 0.6 (0.2-1.0) mg/dl AST 14 (13-39) U/L ALT 7 (7-52) U/L Alkaline Phosphatase 46 (34-104) U/L Total Protein 7.5 (6.0-8.3) gm/dl Albumin 4.2 (3.4-5.0) gm/dl Globulin 3.3 (2.5-4.0) gm/dl Albumin/Globulin Ratio 1.3 (0.9-2) Lipase 10 L (11-82) U/L Administered Medications Lactated Ringer's (Lr) 1,000 mls @ 125 mls/hr IV .Q8H ROSENDO Stop: 07/04/23 01:16 Last Admin: 07/03/23 01:37 Dose: 125 mls/hr Documented By: MARRY Discontinued Medications Sodium Chloride (Nss) 1,000 mls @ 999 mls/hr IV .Q1H1M ONE Stop: 07/02/23 20:43 Last Infusion: 07/02/23 21:03 Dose: 0 mls/hr Documented By: Admin: 07/02/23 19:57 Dose: 999 mls/hr Documented By: MARRY Acetaminophen (Ofirmev) 1,000 mg in 100 mls @ 400 mls/hr IV NOW STA Stop: 07/02/23 21:04 Last Infusion: 07/02/23 21:17 Dose: 0 mls/hr Documented By: Admin: 07/02/23 20:58 Dose: 400 mls/hr Documented By: MARRY Famotidine (Pepcid 20mg Iv Push) 20 mg in 5 mls @ 2.5 mls/min IV NOW STA Stop: 07/02/23 20:51 Last Admin: 07/02/23 20:58 Dose: 2.5 mls/min Documented By: MARRY Lamotrigine (Lamotrigine 100 Mg Tab) 100 mg PO NOW STA Stop: 07/03/23 01:03 Last Admin: 07/03/23 01:20 Dose: 100 mg Documented By: MARRY Ondansetron HCl (Ondansetron Inj 2 Mg/Ml 2 Ml Vial) 4 mg IV NOW STA Stop: 07/02/23 20:51 Last Admin: 07/02/23 20:58 Dose: 4 mg Documented By: MARRY Pravastatin Sodium (Pravastatin Sod 10 Mg Tab) 10 mg PO NOW STA Stop: 07/03/23 01:03 Last Admin: 07/03/23 01:20 Dose: 10 mg Documented By: MARRY Sucralfate (Sucralfate 1 Gm/10 Ml Udc) 1 gm PO NOW STA Stop: 07/02/23 20:53 Last Admin: 07/02/23 20:58 Dose: 1 gm Documented By: MARRY Trazodone HCl (Trazodone Hcl 100 Mg Tab) 200 mg PO NOW STA Stop: 07/03/23 01:03 Last Admin: 07/03/23 01:20 Dose: 200 mg Documented By: MARRY Imaging Data Radiologist's Impression: Abdomen Ultrasound 07/02/23 15:39 ABDOMINAL ULTRASOUND, RIGHT UPPER QUADRANT HISTORY: Right upper quadrant pain. COMPARISON: Abdomen and pelvis March 15, 2023 and right upper quadrant ultrasound March 16, 2023. FINDINGS: No hepatic lesions are identified. There is no biliary ductal dilatation. The common bile duct measures 2 mm in caliber. The pancreatic body is normal. Head and tail are obscured. Sludge within the gallbladder is noted as well as multiple small stones. No sonographic Aguiar sign was elicited. Gallbladder wall thickness is at the upper limits of normal. The gallbladder is mildly distended. There is no right hydronephrosis. Multiple hypoechoic gastrohepatic ligament, evy hepatis and aortocaval nodes are noted. Index node measures approximately 4.4 x 3.2 cm. These correspond to the enlarged lymph nodes on prior CT. IMPRESSION: 1. Cholelithiasis and sludge within the gallbladder. Mildly distended gallbladder with borderline gallbladder wall thickening. No sonographic Aguiar sign. Although not strongly suggestive, acute cholecystitis cannot be excluded. A hepatobiliary scan could be obtained as indicated. 2. Multiple pathologically enlarged upper abdominal lymph nodes, as described above. These are suspicious for malignancy. If not already evaluated, nonemergent Oncology consultation is recommended. ACT 112: Negative or not required by law. Electronically signed by: Duane Ortiz M.D. 07/02/2023 6:29 PM Abdomen/Pelvis CT 07/02/23 19:43 Exam(s): CT ABDOMEN + PELVIS Without Contrast EXAM: CT Abdomen and Pelvis Without Intravenous Contrast CLINICAL HISTORY: Reason for exam: abd pain, MAK. TECHNIQUE: Axial computed tomography images of the abdomen and pelvis without intravenous contrast. CTDI is 19.5 mGy and DLP is 980.67 mGy-cm. Automated exposure control was utilized for the study. A dose lowering technique was utilized adhering to the principles of ALARA. COMPARISON: No relevant prior studies available. FINDINGS: Lung bases: Unremarkable. No mass. No consolidation. ABDOMEN: Liver: Unremarkable. Gallbladder and bile ducts: Layering sludge in the gallbladder. No CT evidence of acute cholecystitis. No ductal dilation. Pancreas: Unremarkable. No ductal dilation. Spleen: Unremarkable. No splenomegaly. Adrenals: Unremarkable. No mass. Kidneys and ureters: Unremarkable. No hydronephrosis, nephrolithiasis, or obstructive uropathy. Stomach and bowel: Diverticulosis, without acute diverticulitis. No small bowel obstruction. No free intraperitoneal air. PELVIS: Appendix: No findings to suggest acute appendicitis. Bladder: Unremarkable. No stones. Reproductive: Unremarkable as visualized. ABDOMEN and PELVIS: Intraperitoneal space: Unremarkable. No free air. No significant fluid collection. Bones/joints: Degenerative changes of the spine. No acute fracture. No dislocation. Soft tissues: Unremarkable. Vasculature: Atherosclerotic changes of the aorta. No abdominal aortic aneurysm. Lymph nodes: RIGHT paravertebral mass measures 4.2 x 2.1 cm. Evaluation limited without contrast. This may represent an enlarged lymph node or paraganglioma. Thoracic spine MRI with contrast recommended. IMPRESSION: 1. No hydronephrosis, nephrolithiasis, or obstructive uropathy. 2. RIGHT paravertebral mass measures 4.2 x 2.1 cm. Evaluation limited without contrast. This may represent an enlarged lymph node or paraganglioma. Thoracic spine MRI with contrast recommended. 3. Layering sludge in the gallbladder. No CT evidence of acute cholecystitis. 4. Diverticulosis, without acute diverticulitis. No small bowel obstruction. No free intraperitoneal air. Electronically signed by: William Briseno MD 07/02/23 20:32 PM Discharge Plan Visit Data Chief Complaint: Abdominal Pain Stated Complaint: RUQ ABD PAIN,NASEA/VOMITING/DIARRHEA,GALL STONES? ED Provider: Shawn Mejia Discharge Problem: MAK (acute kidney injury), Abdominal pain, Abdominal lymphadenopathy, Paravertebral mass Patient Disposition: Admitted As Inpatient Discharge Instructions Interventions: ED Discharge Assessment Last Done: 07/03/23 01:18 Abdominal pain Qualifiers: Abdominal location: generalized Qualified Code(s): R10.84 - Generalized abdominal pain
--- NOTE | 2023-07-02 20:33 | CT Scan Report ---
Exam(s): CT ABDOMEN + PELVIS Without Contrast EXAM: CT Abdomen and Pelvis Without Intravenous Contrast CLINICAL HISTORY: Reason for exam: abd pain, MAK. TECHNIQUE: Axial computed tomography images of the abdomen and pelvis without intravenous contrast. CTDI is 19.5 mGy and DLP is 980.67 mGy-cm. Automated exposure control was utilized for the study. A dose lowering technique was utilized adhering to the principles of ALARA. COMPARISON: No relevant prior studies available. FINDINGS: Lung bases: Unremarkable. No mass. No consolidation. ABDOMEN: Liver: Unremarkable. Gallbladder and bile ducts: Layering sludge in the gallbladder. No CT evidence of acute cholecystitis. No ductal dilation. Pancreas: Unremarkable. No ductal dilation. Spleen: Unremarkable. No splenomegaly. Adrenals: Unremarkable. No mass. Kidneys and ureters: Unremarkable. No hydronephrosis, nephrolithiasis, or obstructive uropathy. Stomach and bowel: Diverticulosis, without acute diverticulitis. No small bowel obstruction. No free intraperitoneal air. PELVIS: Appendix: No findings to suggest acute appendicitis. Bladder: Unremarkable. No stones. Reproductive: Unremarkable as visualized. ABDOMEN and PELVIS: Intraperitoneal space: Unremarkable. No free air. No significant fluid collection. Bones/joints: Degenerative changes of the spine. No acute fracture. No dislocation. Soft tissues: Unremarkable. Vasculature: Atherosclerotic changes of the aorta. No abdominal aortic aneurysm. Lymph nodes: RIGHT paravertebral mass measures 4.2 x 2.1 cm. Evaluation limited without contrast. This may represent an enlarged lymph node or paraganglioma. Thoracic spine MRI with contrast recommended. IMPRESSION: 1. No hydronephrosis, nephrolithiasis, or obstructive uropathy. 2. RIGHT paravertebral mass measures 4.2 x 2.1 cm. Evaluation limited without contrast. This may represent an enlarged lymph node or paraganglioma. Thoracic spine MRI with contrast recommended. 3. Layering sludge in the gallbladder. No CT evidence of acute cholecystitis. 4. Diverticulosis, without acute diverticulitis. No small bowel obstruction. No free intraperitoneal air. Electronically signed by: William Briseno MD 07/02/23 20:32 PM
[2023-07-02] MEDS ORDERED: ACETAMINOPHEN 1,000 MG/100 ML VIAL IV STA (20:50)
[2023-07-02] MEDS ORDERED: FAMOTIDINE 20MG IV PUSH 20 MG/5 ML SYR IV STA (20:50)
[2023-07-02] MEDS ORDERED: ONDANSETRON INJ 2 MG/ML 2 ML VIAL IV STA (20:50)
[2023-07-02] MEDS ORDERED: SUCRALFATE 1 GM/10 ML UDC PO STA (20:52)
--- NOTE | 2023-07-02 22:18 | History & Physical Report ---
Date of Service July 02, 2023 Assessment & Plan (1) Abdominal pain: (2) Enlarged lymph nodes: (3) MAK (acute kidney injury): (4) Bipolar disorder: (5) GERD (gastroesophageal reflux disease): (6) Hypertension: (7) HLD (hyperlipidemia): (8) Atrial flutter: Plan #Abdominal Pain Diarrhea vs. Gallbladder Pathology HIDA Stool Biofire #Enlarged Lymph Nodes Was supposed to have PET, never completed after last admission MRI thoracic and lumbar spine w/ & w/o #MAK 3L LR ordered repeat BMP No obstructive pathology noted on CT UA #Atrial Flutter Currently NSR Hold Eliquis until acute cholecystitis ruled out #Bi Polar I Continue home Lamictal and trazodone #GERD Omeprazole #HTN Hold lisinopril Continue amlodipine, atenolol #HLD pravastatin History of Present Illness Chief Complaint: Diarrhea Primary Care Provider: Sebastián Lund MD 63 yo male PMHx Bipolar I, atrial flutter on eliquis, HLD, HTN, GERD presented to ED with diarrhea and abdominal pain not improved since last admission 03/15/23-03/18/23. Has had fever, night sweats, significant weight loss in the interim. At last admission was noted to have likely pathologic lymph nodes for which he was to have PET scan, this was never completed. ED Course: Abd US: +cholelithiasis and cholecystic sludge, mild distention, borderline thickening. Negative aguiar. Abd CT: Layering sludge in gallbladder. R paravertebral mass 4.2x2.1cm. Found to have MAK Cr1.82 from baseline of <1. Otherwise, labs WNL Allergies Allergy/AdvReac Type Severity Reaction Status Date / Time No Known Allergies Allergy Verified 07/02/23 20:13 Home Medications Medication Instructions Recorded Confirmed Type diclofenac sodium 50 mg 50 mg PO BID PRN Pain 03/15/23 07/02/23 History tablet,delayed release lamotrigine 100 mg tablet 100 mg PO HS 03/15/23 07/02/23 History (Lamictal) lisinopril 20 mg tablet 20 mg PO DAILY 03/15/23 07/02/23 History omeprazole 20 mg tablet,delayed 40 mg PO DAILY 03/15/23 07/02/23 History release pravastatin 10 mg tablet 10 mg PO HS 03/15/23 07/02/23 History trazodone 100 mg tablet 200 mg PO HS 03/15/23 07/02/23 History amlodipine 10 mg tablet 10 mg PO DAILY #30 tabs 03/18/23 07/02/23 Rx apixaban 5 mg tablet (Eliquis) 5 mg PO BID #60 tabs 03/18/23 07/02/23 Rx atenolol 25 mg tablet 25 mg PO QAM #30 tabs 03/18/23 07/02/23 Rx Past Med/Surg History Medical History Atrial flutter Bipolar disorder GERD (gastroesophageal reflux disease) reports prior UGIB s/p EGD showing ulcers HLD (hyperlipidemia) Hypertension Mitral regurgitation Surgical History History of back surgery History of knee surgery Family History Mother Cancer Social History Smoking Status: Former smoker Hx Alcohol Use: No Hx Substance Use: No Preferred Language: Kinyarwanda Communication Ability: Effective [employer] Fsc[employer] Developer Required: No Beliefs That Will Affect Care: None Current Living Situation: Other Current Living Situation Comment: group home Feels Safe at Home: Yes Assistive Devices: None Review of Systems Review of Systems: reviewed, per HPI Physical Exam Physical Exam: General: patient resting comfortably, NAD, non-toxic in appearance, AA&O x 4, answers questions appropriately and follows commands. Skin: warm, dry, intact HEENT: NC/AT, anicteric sclera, conjunctiva without injection, moist mucus membranes, trachea midline, no thyromegaly, no JVD Heart: +S1/S2, regular, no m/r/g Lungs: equal air entry bilaterally, no rales/rhonchi/wheezes Abd: +BS, soft, NT/ND, no masses/organomegaly/ascites Ext: warm, no clubbing/cyanosis or edema Neuro: nonfocal, patient AA&O x 4, speech intact, no facial droop, moving all extremities on command. Results & Data Results & Data Vital Signs (Past 12 Hours) Vital Signs Temp Pulse Pulse Resp BP BP Pulse Ox 07/02/23 21:00 88 19 167/101 H 100 07/02/23 19:59 85 19 100 07/02/23 15:23 36.7 C 82 18 123/79 96 O2 Del Method 07/02/23 21:00 07/02/23 19:59 07/02/23 15:23 Room Air Laboratory Results Laboratory Results WBC 8.91 K/ul (4.8-10.8) 07/02/23 16:15 RBC 4.09 M/uL (4.70-6.10) L 07/02/23 16:15 Hgb 11.1 g/dl (14.0-18.0) L 07/02/23 16:15 Hct 33.5 % (42.0-52.0) L 07/02/23 16:15 MCV 81.9 fL (80.0-100.0) 07/02/23 16:15 MCH 27.1 pg (25.0-34.0) 07/02/23 16:15 MCHC 33.1 g/dL (32.0-36.0) 07/02/23 16:15 RDW Std Deviation 45.2 fL (36.4-46.3) 07/02/23 16:15 RDW Coeff of Joel 15.3 % (11.5-14.5) H 07/02/23 16:15 Plt Count 369 K/uL (130-400) 07/02/23 16:15 MPV 11.2 fL (9.4-12.4) 07/02/23 16:15 Immature Gran % (Auto) 0.3 % 07/02/23 16:15 Neut % (Auto) 73.6 % 07/02/23 16:15 Lymph % (Auto) 11.0 % 07/02/23 16:15 Mitchell % (Auto) 11.9 % 07/02/23 16:15 Eos % (Auto) 2.6 % 07/02/23 16:15 Baso % (Auto) 0.6 % 07/02/23 16:15 Neut # (Auto) 6.56 K/uL (1.40-6.50) H 07/02/23 16:15 Lymph # (Auto) 0.98 K/uL (1.20-3.40) L 07/02/23 16:15 Mitchell # (Auto) 1.06 K/uL (0.11-0.59) H 07/02/23 16:15 Eos # (Auto) 0.23 K/uL (0.00-0.50) 07/02/23 16:15 Baso # (Auto) 0.05 K/uL (0.00-0.20) 07/02/23 16:15 Immature Gran # (Auto) 0.03 K/uL (0.01-0.20) 07/02/23 16:15 Sodium 139 mmol/L (136-145) 07/02/23 16:15 Potassium 4.3 mmol/L (3.5-5.1) 07/02/23 16:15 Chloride 107 mmol/L (98-107) 07/02/23 16:15 Carbon Dioxide 24 mmol/L (21-32) 07/02/23 16:15 Anion Gap 8 (3-11) 07/02/23 16:15 BUN 19 mg/dl (6-23) 07/02/23 16:15 Creatinine 1.82 mg/dl (0.6-1.4) H 07/02/23 16:15 Est Cr Clr Drug Dosing 47.6 ml/min 07/02/23 16:15 Est GFR ( Amer) 44.2 ml/min 07/02/23 16:15 Est GFR (Non-Af Amer) 38.1 ml/min 07/02/23 16:15 BUN/Creatinine Ratio 10.4 (10-20) 07/02/23 16:15 Glucose 110 mg/dl (70-99(Fasting)) H 07/02/23 16:15 Calcium 9.6 mg/dl (8.6-10.3) 07/02/23 16:15 Phosphorus 2.4 mg/dl (2.5-4.9) L 07/02/23 16:15 Magnesium 2.1 mg/dl (1.7-2.4) 07/02/23 16:15 Total Bilirubin 0.6 mg/dl (0.2-1.0) 07/02/23 16:15 AST 14 U/L (13-39) 07/02/23 16:15 ALT 7 U/L (7-52) 07/02/23 16:15 Alkaline Phosphatase 46 U/L (34-104) 07/02/23 16:15 Total Protein 7.5 gm/dl (6.0-8.3) 07/02/23 16:15 Albumin 4.2 gm/dl (3.4-5.0) 07/02/23 16:15 Globulin 3.3 gm/dl (2.5-4.0) 07/02/23 16:15 Albumin/Globulin Ratio 1.3 (0.9-2) 07/02/23 16:15 Lipase 10 U/L (11-82) L 07/02/23 16:15 Impressions Abdomen Ultrasound 07/02/23 15:39 ABDOMINAL ULTRASOUND, RIGHT UPPER QUADRANT HISTORY: Right upper quadrant pain. COMPARISON: Abdomen and pelvis March 15, 2023 and right upper quadrant ultrasound March 16, 2023. FINDINGS: No hepatic lesions are identified. There is no biliary ductal dilatation. The common bile duct measures 2 mm in caliber. The pancreatic body is normal. Head and tail are obscured. Sludge within the gallbladder is noted as well as multiple small stones. No sonographic Aguiar sign was elicited. Gallbladder wall thickness is at the upper limits of normal. The gallbladder is mildly distended. There is no right hydronephrosis. Multiple hypoechoic gastrohepatic ligament, evy hepatis and aortocaval nodes are noted. Index node measures approximately 4.4 x 3.2 cm. These correspond to the enlarged lymph nodes on prior CT. IMPRESSION: 1. Cholelithiasis and sludge within the gallbladder. Mildly distended gallbladder with borderline gallbladder wall thickening. No sonographic Aguiar sign. Although not strongly suggestive, acute cholecystitis cannot be excluded. A hepatobiliary scan could be obtained as indicated. 2. Multiple pathologically enlarged upper abdominal lymph nodes, as described above. These are suspicious for malignancy. If not already evaluated, nonemergent Oncology consultation is recommended. ACT 112: Negative or not required by law. Electronically signed by: Duane Ortiz M.D. 07/02/2023 6:29 PM Abdomen/Pelvis CT 07/02/23 19:43 Exam(s): CT ABDOMEN + PELVIS Without Contrast EXAM: CT Abdomen and Pelvis Without Intravenous Contrast CLINICAL HISTORY: Reason for exam: abd pain, MAK. TECHNIQUE: Axial computed tomography images of the abdomen and pelvis without intravenous contrast. CTDI is 19.5 mGy and DLP is 980.67 mGy-cm. Automated exposure control was utilized for the study. A dose lowering technique was utilized adhering to the principles of ALARA. COMPARISON: No relevant prior studies available. FINDINGS: Lung bases: Unremarkable. No mass. No consolidation. ABDOMEN: Liver: Unremarkable. Gallbladder and bile ducts: Layering sludge in the gallbladder. No CT evidence of acute cholecystitis. No ductal dilation. Pancreas: Unremarkable. No ductal dilation. Spleen: Unremarkable. No splenomegaly. Adrenals: Unremarkable. No mass. Kidneys and ureters: Unremarkable. No hydronephrosis, nephrolithiasis, or obstructive uropathy. Stomach and bowel: Diverticulosis, without acute diverticulitis. No small bowel obstruction. No free intraperitoneal air. PELVIS: Appendix: No findings to suggest acute appendicitis. Bladder: Unremarkable. No stones. Reproductive: Unremarkable as visualized. ABDOMEN and PELVIS: Intraperitoneal space: Unremarkable. No free air. No significant fluid collection. Bones/joints: Degenerative changes of the spine. No acute fracture. No dislocation. Soft tissues: Unremarkable. Vasculature: Atherosclerotic changes of the aorta. No abdominal aortic aneurysm. Lymph nodes: RIGHT paravertebral mass measures 4.2 x 2.1 cm. Evaluation limited without contrast. This may represent an enlarged lymph node or paraganglioma. Thoracic spine MRI with contrast recommended. IMPRESSION: 1. No hydronephrosis, nephrolithiasis, or obstructive uropathy. 2. RIGHT paravertebral mass measures 4.2 x 2.1 cm. Evaluation limited without contrast. This may represent an enlarged lymph node or paraganglioma. Thoracic spine MRI with contrast recommended. 3. Layering sludge in the gallbladder. No CT evidence of acute cholecystitis. 4. Diverticulosis, without acute diverticulitis. No small bowel obstruction. No free intraperitoneal air. Electronically signed by: William Briseno MD 07/02/23 20:32 PM Supervising Physician Co-Signing Physician Notes Patient seen and examined, chart reviewed, case discussed with Dr. Wu and I agree with the assessment and plan as above. In brief, patient is a 63yo male presenting with persistent abdominal pain and diarrhea ongoing since last admission in February. Also with fever, night sweats and weight loss. Additionally patient reports occasional bloody diarrhea, right flank pain, poor appetite. On exam patient is afebrile, HD stable, NAD Skin - no rash HEENT - Dry mucus membranes Heart - +S1/S2, regular, no m/r/g Lungs - CTA, no rales/rhonchi/wheezes Abd - +BS, soft, generalized abdominal tenderness, no focal RUQ pain Ext - warm, well perfused Neuro - sensation intact in UE/LE bilaterally, 5/5 muscle strength, LE reflexes 2+ Labs and images reviewed Assessment/Plan -Will check HIDA Scan given RUQ US - do not strongly suspect acute cholecystitis given absence of localized pain and leukocytosis -Check stool biofire and C. diff given ongoing diarrhea -Check MRI thoracic and lumbar spines to further evaluate right paravertebral mass. Additional workup pending results -IVF for mild MAK - repeat labs in AM -Holding Eliquis for now pending additional workup ?biopsy -Remainder of plan as above PG Care Time/CCT Total # of Minutes Spent Total Time Spent with Patient: Total time spent is greater than 50% in coordination of care (as documented) at patient's floor/unit and/or counseling patient: Coding Level of Care Code 16748 INT INP/OBS CARE 2/55MIN Diagnoses Abdominal pain R10.9 Enlarged lymph nodes R59.9 MAK (acute kidney injury) N17.9 Bipolar disorder F31.9 GERD (gastroesophageal reflux disease) K21.9 Hypertension I10 HLD (hyperlipidemia) E78.5 Atrial flutter I48.92 Resident Activity Tracking Resident Involvement: Resident Care Provided Care Provided: Adult Hospital Medicine
[2023-07-03] MEDS ORDERED: PRAVASTATIN SOD 10 MG TAB PO STA (01:02)
[2023-07-03] MEDS ORDERED: lamoTRIgine 100 MG TAB PO STA (01:02)
[2023-07-03] MEDS ORDERED: traZODone HCL 100 MG TAB PO STA (01:02)
[2023-07-03] MEDS ORDERED: ONDANSETRON INJ 2 MG/ML 2 ML VIAL IV PRN (01:17)
[2023-07-03] MEDS: LACTATED RINGER'S 1,000 ML IV SCH ×2 (01:37→18:28)
[2023-07-03 02:16] LABS: Magnesium 2.1 mg/dl (1.7-2.4); Phosphorus 2.4 mg/dl (2.5-4.9)
[2023-07-03] MEDS ORDERED: GADOBUTROL 65ML VIAL IV ONE (02:47)
[2023-07-03] MEDS: ACETAMINOPHEN 325 MG TAB PO PRN ×4 (03:38→20:43)
[2023-07-03 05:15] LABS: Hematocrit (blood only) 31.1 % (42.0-52.0); Mean Corpuscular Hemoglobin 26.8 pg (25.0-34.0); Mean Corpuscular Hgb Conc 32.2 g/dL (32.0-36.0); Mean Corpuscular Volume 83.4 fL (80.0-100.0); Mean Platelet Volume 10.8 fL (9.4-12.4); Platelet Count 291 K/uL (130-400); RDW Coefficient of Variation 15.3 % (11.5-14.5); Red Blood Count 3.73 M/uL (4.70-6.10); White Blood Count 7.42 K/ul (4.8-10.8)
[2023-07-03 05:28] LABS: BUN Creatinine Ratio 11.9 (10-20); Calcium 8.6 mg/dl (8.6-10.3); Creatinine Clr Calc Pharmacy 54.4 ml/min; Est GFR (Non-African American) 44.9 ml/min; Potassium 3.9 mmol/L (3.5-5.1)
--- NOTE | 2023-07-03 05:52 | Magnetic Resonance Report ---
Exam(s): MRI T SPINE W/WO Contrast IV Amt: 8cc gadavist EXAM: MR Thoracic Spine Without and With Intravenous Contrast CLINICAL HISTORY: Reason for exam: right paravertebral mass. TECHNIQUE: Magnetic resonance images of the thoracic spine without and with intravenous contrast in multiple planes. CONTRAST: Patient received 8cc gadavist of IV contrast COMPARISON: Comparison made to prior CT scan of the abdomen and pelvis from July 02, 2023. FINDINGS: Vertebrae: Unremarkable. No acute fracture. Discs/spinal canal/neural foramina: No acute findings. No significant disc disease. No spinal canal stenosis. Spinal cord: Unremarkable. Normal signal. No abnormal enhancement. Soft tissues: There is a lobulated and enhancing soft tissue mass in the right prevertebral soft tissues at the level of T10 and T11 measuring approximately 40.5 x 20.8 x 23.7 mm. There are enlarged kimberly-aortic lymph nodes at T12 and L1. IMPRESSION: Enhancing lobulated soft tissue mass in the right prevertebral soft tissues concerning for neoplasm. The differential diagnosis includes lymphadenopathy/metastasis and less likely Neurogenic tumors such as nerve sheath tumor, parasympathetic ganglion tumor, sympathetic chain tumor. This most likely represents lymphadenopathy or metastasis with numerous enlarged retroperitoneal and periportal lymph nodes seen in the abdomen CT from the same day. Electronically signed by: Rohini Prakash MD 07/03/23 05:51 AM
--- NOTE | 2023-07-03 05:58 | Magnetic Resonance Report ---
Exam(s): MRI L SPINE W/WO Contrast IV Amt: 8cc gadavist EXAM: MR Lumbar Spine Without and With Intravenous Contrast CLINICAL HISTORY: Reason for exam: right paravertebral mass. TECHNIQUE: Magnetic resonance images of the lumbar spine without and with intravenous contrast in multiple planes. CONTRAST: Patient received 8cc gadavist of IV contrast COMPARISON: CT abd/pel 07/02/2023 FINDINGS: Vertebrae: There are 5 lumbar type vertebral bodies with a mild levoscoliosis and normal lumbar lordosis. There is normal vertebral body height and alignment. The bone marrow signal is heterogeneous with reactive endplate changes and areas of focal fat or venous malformations. No acute fracture. Spinal cord: The conus is normal size, shape and signal characteristics, terminating at T12-L1. No abnormal enhancement. Soft tissues: Right periaortic retroperitoneal lymphadenopathy at the level of L1 and L2. Likely lymphadenopathy at the level of T11. Right renal cyst. IMPRESSION: Findings concerning for pathologic lymphadenopathy in the right periaortic retroperitoneal space. No evidence of acute lumbar spine pathology. Electronically signed by: Rohini Prakash MD 07/03/23 05:57 AM
[2023-07-03 06:23] LABS: Appearance Urine Clear (Clear); Bilirubin Urine Negative (Negative); Blood Urine Negative (Negative); Color Urine Yellow; Glucose Urine UA Negative (Negative); Ketones Urine Trace (Negative); Leukocyte Esterase Urine Negative (Negative); Nitrite Urine Negative (Negative); Protein Urine Negative (Negative); Specific Gravity Urine 1.011 (1.000-1.030); Urobilinogen Urine Negative (Negative); pH Urine 6.5 (4.5-7.5)
[2023-07-03] MEDS: PANTOprazole 40 MG TAB PO SCH (08:30)
[2023-07-03] MEDS: ATENOLOL 25 MG TABLET PO SCH (08:31)
[2023-07-03] MEDS: amLODIPine BESYLATE 5 MG TAB PO SCH (08:31)
[2023-07-03] MEDS ORDERED: INFLUENZA VACCINE HIGH-DOSE (HD-IIV4) PF 65+ 0.7mL SYR IM ONE (09:00)
--- NOTE | 2023-07-03 16:05 | Nuclear Medicine Report ---
NUCLEAR MEDICINE HEPATOBILIARY SCAN CLINICAL HISTORY: Abdominal pain. Cholelithiasis. COMPARISON: CT of the abdomen and pelvis and right upper quadrant ultrasound July 02, 2023. TECHNIQUE: 5.7 mCi of technetium 99m Choletec IV was injected at 10:08 AM on July 03, 2023. Imme diately following injection, imaging of the abdomen was carried out for 60 minutes in the anterior pr ojection. FINDINGS: Hepatic uptake of radiotracer is prompt and homogeneous. Activity is identified within the common bile duct at 10 minutes and gallbladder at 15 minutes. Small bowel activity is noted at 10 mi nutes. IMPRESSION: Normal hepatobiliary scan. No evidence for acute cholecystitis. ACT 112: Negative or not required by law. Electronically signed by: Duane Ortiz M.D. 07/03/2023 4:04 PM
--- NOTE | 2023-07-03 16:21 | Communication Note ---
Date of Service: July 03, 2023 Patient not examined, chart reviewed. Discussed with hospitalist, Dr. Ponce. Our services consulted for paravertebral mass as well as possible cholecystitis given RUQ abdominal pain with Ultrasound and CT scan showing sludge. He has multiple retroperitoneal masses and MRI showing paravertebral mass likely metastatic disease. Would recommend outpatient surgical oncology evaluation to determine best biopsy approach. HIDA scan unremarkable for acute cholecystitis. No surgical intervention recommended for gallbladder sludge/abdominal pain in setting of possible metastatic disease. NUCLEAR MEDICINE HEPATOBILIARY SCAN CLINICAL HISTORY: Abdominal pain. Cholelithiasis. COMPARISON: CT of the abdomen and pelvis and right upper quadrant ultrasound July 02, 2023. TECHNIQUE: 5.7 mCi of technetium 99m Choletec IV was injected at 10:08 AM on July 03, 2023. Immediately following injection, imaging of the abdomen was c arried out for 60 minutes in the anterior projection. FINDINGS: Hepatic uptake of radiotracer is prompt and homogeneous. Activity is identified within the common bile duct at 10 minutes and gallbladder at 15 minutes. Small bowel activity is noted at 10 minutes. IMPRESSION: Normal hepatobiliary scan. No evidence for acute cholecystitis. Discussed with Dr. abrams who agrees with above.
--- NOTE | 2023-07-03 18:22 | Hospitalist Progress Note ---
Date of Service July 03, 2023 Assessment & Plan (1) Abdominal pain: (2) Enlarged lymph nodes: (3) MAK (acute kidney injury): (4) Bipolar disorder: (5) GERD (gastroesophageal reflux disease): (6) Hypertension: (7) HLD (hyperlipidemia): (8) Atrial flutter: Plan #Abdominal Pain HIDA unremarkable Stool Biofire negative could be secondary to mass effect General surgery recommended no surgical intervention for gallbladder #Enlarged Lymph Nodes Was supposed to have PET, never completed after last admission MRI thoracic and lumbar spine showed right periaortic lymphadenopathy and right prevertebral mass. We will keep the patient n.p.o. postmidnight tonight Will speak to IR tomorrow consulted orthospine for biopsy #MAK 3L LR ordered repeat BMP No obstructive pathology noted on CT #Atrial Flutter Currently NSR Hold Eliquis until biopsy obtained #Bi Polar I Continue home Lamictal and trazodone #GERD Omeprazole #HTN Hold lisinopril Continue amlodipine, atenolol #HLD pravastatin Admission and Anticipated Discharge Date Admission Date: July 02, 2023 Subjective Patient feels well. Belly pain has improved. He says that he lost 30 pounds in 2 months. Review of Systems Review of Systems: All systems reviewed & are unremarkable except as noted in Subjective Physical Exam Physical Exam: General: Awake, conversant Heart: S1, S2/regular rate and rhythm, no murmur rubs or gallops Lungs: Clear to auscultation bilaterally. Normal effort Abdomen: Soft/nontender/nondistended. No hepatosplenomegaly Extremities: No clubbing/cyanosis. No edema Behavior: Appropriate, cooperative Results & Data Results & Data Vital Signs (Past 12 Hours) Vital Signs Temp Pulse Pulse Resp BP Pulse Ox O2 Del Method 07/03/23 17:42 36.6 C 71 17 165/89 H 99 Room Air 07/03/23 09:00 143/78 H 100 Room Air 07/03/23 08:34 36.7 C 94 H 18 185/95 H 99 Room Air Laboratory Results Abnormal lab results 07/02/23 07/03/23 07/03/23 Range/Units 16:15 04:53 04:53 RBC 3.73 L (4.70-6.10) M/uL Hgb 10.0 L (14.0-18.0) g/dl Hct 31.1 L (42.0-52.0) % RDW Coeff of Joel 15.3 H (11.5-14.5) % Chloride 109 H (98-107) mmol/L Creatinine 1.59 H (0.6-1.4) mg/dl Glucose 114 H (70-99(Fasting)) mg/dl Phosphorus 2.4 L (2.5-4.9) mg/dl Urine Ketones (Negative) 07/03/23 Range/Units 06:04 RBC (4.70-6.10) M/uL Hgb (14.0-18.0) g/dl Hct (42.0-52.0) % RDW Coeff of Joel (11.5-14.5) % Chloride (98-107) mmol/L Creatinine (0.6-1.4) mg/dl Glucose (70-99(Fasting)) mg/dl Phosphorus (2.5-4.9) mg/dl Urine Ketones Trace H (Negative) Diagnostic Findings Abdomen Ultrasound 07/02/23 15:39 ABDOMINAL ULTRASOUND, RIGHT UPPER QUADRANT HISTORY: Right upper quadrant pain. COMPARISON: Abdomen and pelvis March 15, 2023 and right upper quadrant ultrasound March 16, 2023. FINDINGS: No hepatic lesions are identified. There is no biliary ductal dilatation. The common bile duct measures 2 mm in caliber. The pancreatic body is normal. Head and tail are obscured. Sludge within the gallbladder is noted as well as multiple small stones. No sonographic Aguiar sign was elicited. Gallbladder wall thickness is at the upper limits of normal. The gallbladder is mildly distended. There is no right hydronephrosis. Multiple hypoechoic gastrohepatic ligament, evy hepatis and aortocaval nodes are noted. Index node measures approximately 4.4 x 3.2 cm. These correspond to the enlarged lymph nodes on prior CT. IMPRESSION: 1. Cholelithiasis and sludge within the gallbladder. Mildly distended gallbladder with borderline gallbladder wall thickening. No sonographic Aguiar sign. Although not strongly suggestive, acute cholecystitis cannot be excluded. A hepatobiliary scan could be obtained as indicated. 2. Multiple pathologically enlarged upper abdominal lymph nodes, as described above. These are suspicious for malignancy. If not already evaluated, nonemergent Oncology consultation is recommended. ACT 112: Negative or not required by law. Electronically signed by: Duane Ortiz M.D. 07/02/2023 6:29 PM Abdomen/Pelvis CT 07/02/23 19:43 Exam(s): CT ABDOMEN + PELVIS Without Contrast EXAM: CT Abdomen and Pelvis Without Intravenous Contrast CLINICAL HISTORY: Reason for exam: abd pain, MAK. TECHNIQUE: Axial computed tomography images of the abdomen and pelvis without intravenous contrast. CTDI is 19.5 mGy and DLP is 980.67 mGy-cm. Automated exposure control was utilized for the study. A dose lowering technique was utilized adhering to the principles of ALARA. COMPARISON: No relevant prior studies available. FINDINGS: Lung bases: Unremarkable. No mass. No consolidation. ABDOMEN: Liver: Unremarkable. Gallbladder and bile ducts: Layering sludge in the gallbladder. No CT evidence of acute cholecystitis. No ductal dilation. Pancreas: Unremarkable. No ductal dilation. Spleen: Unremarkable. No splenomegaly. Adrenals: Unremarkable. No mass. Kidneys and ureters: Unremarkable. No hydronephrosis, nephrolithiasis, or obstructive uropathy. Stomach and bowel: Diverticulosis, without acute diverticulitis. No small bowel obstruction. No free intraperitoneal air. PELVIS: Appendix: No findings to suggest acute appendicitis. Bladder: Unremarkable. No stones. Reproductive: Unremarkable as visualized. ABDOMEN and PELVIS: Intraperitoneal space: Unremarkable. No free air. No significant fluid collection. Bones/joints: Degenerative changes of the spine. No acute fracture. No dislocation. Soft tissues: Unremarkable. Vasculature: Atherosclerotic changes of the aorta. No abdominal aortic aneurysm. Lymph nodes: RIGHT paravertebral mass measures 4.2 x 2.1 cm. Evaluation limited without contrast. This may represent an enlarged lymph node or paraganglioma. Thoracic spine MRI with contrast recommended. IMPRESSION: 1. No hydronephrosis, nephrolithiasis, or obstructive uropathy. 2. RIGHT paravertebral mass measures 4.2 x 2.1 cm. Evaluation limited without contrast. This may represent an enlarged lymph node or paraganglioma. Thoracic spine MRI with contrast recommended. 3. Layering sludge in the gallbladder. No CT evidence of acute cholecystitis. 4. Diverticulosis, without acute diverticulitis. No small bowel obstruction. No free intraperitoneal air. Electronically signed by: William Briseno MD 07/02/23 20:32 PM Hepatobiliary Scan Nuclear Medicine 07/03/23 01:17 NUCLEAR MEDICINE HEPATOBILIARY SCAN CLINICAL HISTORY: Abdominal pain. Cholelithiasis. COMPARISON: CT of the abdomen and pelvis and right upper quadrant ultrasound July 02, 2023. TECHNIQUE: 5.7 mCi of technetium 99m Choletec IV was injected at 10:08 AM on July 03, 2023. Immediately following injection, imaging of the abdomen was carried out for 60 minutes in the anterior projection. FINDINGS: Hepatic uptake of radiotracer is prompt and homogeneous. Activity is identified within the common bile duct at 10 minutes and gallbladder at 15 minutes. Small bowel activity is noted at 10 minutes. IMPRESSION: Normal hepatobiliary scan. No evidence for acute cholecystitis. ACT 112: Negative or not required by law. Electronically signed by: Duane Ortiz M.D. 07/03/2023 4:04 PM Lumbar Spine MRI 07/03/23 01:17 Exam(s): MRI L SPINE W/WO Contrast IV Amt: 8cc gadavist EXAM: MR Lumbar Spine Without and With Intravenous Contrast CLINICAL HISTORY: Reason for exam: right paravertebral mass. TECHNIQUE: Magnetic resonance images of the lumbar spine without and with intravenous contrast in multiple planes. CONTRAST: Patient received 8cc gadavist of IV contrast COMPARISON: CT abd/pel 07/02/2023 FINDINGS: Vertebrae: There are 5 lumbar type vertebral bodies with a mild levoscoliosis and normal lumbar lordosis. There is normal vertebral body height and alignment. The bone marrow signal is heterogeneous with reactive endplate changes and areas of focal fat or venous malformations. No acute fracture. Spinal cord: The conus is normal size, shape and signal characteristics, terminating at T12-L1. No abnormal enhancement. Soft tissues: Right periaortic retroperitoneal lymphadenopathy at the level of L1 and L2. Likely lymphadenopathy at the level of T11. Right renal cyst. IMPRESSION: Findings concerning for pathologic lymphadenopathy in the right periaortic retroperitoneal space. No evidence of acute lumbar spine pathology. Electronically signed by: Rohini Prakash MD 07/03/23 05:57 AM Thoracic Spine MRI 07/03/23 01:17 Exam(s): MRI T SPINE W/WO Contrast IV Amt: 8cc gadavist EXAM: MR Thoracic Spine Without and With Intravenous Contrast CLINICAL HISTORY: Reason for exam: right paravertebral mass. TECHNIQUE: Magnetic resonance images of the thoracic spine without and with intravenous contrast in multiple planes. CONTRAST: Patient received 8cc gadavist of IV contrast COMPARISON: Comparison made to prior CT scan of the abdomen and pelvis from July 02, 2023. FINDINGS: Vertebrae: Unremarkable. No acute fracture. Discs/spinal canal/neural foramina: No acute findings. No significant disc disease. No spinal canal stenosis. Spinal cord: Unremarkable. Normal signal. No abnormal enhancement. Soft tissues: There is a lobulated and enhancing soft tissue mass in the right prevertebral soft tissues at the level of T10 and T11 measuring approximately 40.5 x 20.8 x 23.7 mm. There are enlarged kimberly-aortic lymph nodes at T12 and L1. IMPRESSION: Enhancing lobulated soft tissue mass in the right prevertebral soft tissues concerning for neoplasm. The differential diagnosis includes lymphadenopathy/metastasis and less likely Neurogenic tumors such as nerve sheath tumor, parasympathetic ganglion tumor, sympathetic chain tumor. This most likely represents lymphadenopathy or metastasis with numerous enlarged retroperitoneal and periportal lymph nodes seen in the abdomen CT from the same day. Electronically signed by: Rohini Prakash MD 07/03/23 05:51 AM PG Care Time/CCT Total # of Minutes Spent Total Time Spent with Patient: Total time spent is greater than 50% in coordination of care (as documented) at patient's floor/unit and/or counseling patient: Coding Level of Care Code 86684 SUB INP/OBS CARE 2/35MIN Diagnoses Abdominal pain R10.9 Enlarged lymph nodes R59.9 MAK (acute kidney injury) N17.9 Bipolar disorder F31.9 GERD (gastroesophageal reflux disease) K21.9 Hypertension I10 HLD (hyperlipidemia) E78.5 Atrial flutter I48.92
[2023-07-03] MEDS: traZODone HCL 100 MG TAB PO SCH (20:44)
[2023-07-03] MEDS: lamoTRIgine 100 MG TAB PO SCH (20:45)
[2023-07-03] MEDS: PRAVASTATIN SOD 10 MG TAB PO SCH (20:45)
[2023-07-04] MEDS: LACTATED RINGER'S 1,000 ML IV SCH (01:17)
[2023-07-04 07:33] LABS: BUN Creatinine Ratio 9.2 (10-20); Creatinine Clr Calc Pharmacy 60.9 ml/min; Est GFR (African American) 59.6 ml/min; Est GFR (Non-African American) 51.5 ml/min; Potassium 4.1 mmol/L (3.5-5.1)
[2023-07-04] MEDS: amLODIPine BESYLATE 5 MG TAB PO SCH (08:18)
[2023-07-04] MEDS: PANTOprazole 40 MG TAB PO SCH (08:18)
[2023-07-04] MEDS: ATENOLOL 25 MG TABLET PO SCH (08:19)
[2023-07-04] MEDS ORDERED: SODIUM CHLORIDE 0.9% 1,000 ML IV SCH (09:00)
[2023-07-04 09:07] LABS: Adenovirus F 40/41 PCR Not Detected (NotDetected); Astrovirus PCR Not Detected (NotDetected); Campylobacter PCR Not Detected (NotDetected); Cryptosporidium PCR Not Detected (NotDetected); Cyclospora cayetanensis PCR Not Detected (NotDetected); Entamoeba histolytica PCR Not Detected (NotDetected); Enteroaggregative E.coli(EAEC) Not Detected (NotDetected); Enteropathogenic E.coli (EPEC) Not Detected (NotDetected); Enterotoxigenic E.coli (ETEC) Not Detected (NotDetected); Giardia lamblia PCR Not Detected (NotDetected); Norovirus GI/GII PCR Not Detected (NotDetected); Plesiomonas shigelloides PCR Not Detected (NotDetected); Rotavirus A PCR Not Detected (NotDetected); Salmonella PCR Not Detected (NotDetected); Sapovirus PCR Not Detected (NotDetected); Shiga-like Toxin E.coli (STEC) Not Detected (NotDetected); Shigella/Enteroinvasive E.coli Not Detected (NotDetected); Vibrio cholerae PCR Not Detected (NotDetected); Vibrio species PCR Not Detected (NotDetected); Yersinia enterocolitica PCR Not Detected (NotDetected)
--- NOTE | 2023-07-04 11:16 | CT Scan Report ---
CT chest diagnostic wo con CT DOSE: 495.53 mGy.cm HISTORY: Abnormal abdominal CT. Lymphadenopathy. look for masses that can be accessible for biopsy TECHNIQUE: Multiaxial CT images of the chest were performed without contrast. A dose lowering techni que was utilized adhering to the principles of ALARA. COMPARISON: Abdomen and pelvis CT 07/02/2023. FINDINGS: The central airways are patent. No pneumothorax. No pleural effusions. There are few puncta te calcified granulomas within the left upper lung zone. There is a 2.3 cm circumscribed nodule withi n the left lower lobe on image 193. A few punctate calcified granulomas within the right upper lobe. Right basilar linear densities and a few faint patchy groundglass densities within the right lower lo be posteriorly. This may represent mild dependent change/atelectasis. A low-grade pneumonitis is not excluded. No suspicious lytic or blastic osseous lesions. Normal thyroid gland. Bulky upper abdominal lymphadenopathy again noted. Dominant gastrohepatic lymph node measures 4.9 x 3.9 cm. Lower thoracic right paravertebral lymphadenopathy again noted with the largest lymph node measuring 4.2 cm. Enlarg ed bilateral lower cervical/supraclavicular lymph nodes with the dominant left supraclavicular lymph node on image 32 measuring 2.9 cm. No axillary lymphadenopathy. Multiple enlarged superior mediastina l, subcarinal, and paraesophageal lymph nodes. There is thickening of the distal esophagus with a pos sible intraluminal mass best seen on image 171. This measures 1.9 cm. There is an additional intralum inal nodule/polyp within the upper esophagus on image 65 measuring 11 mm. The heart is normal in size . Normal caliber thoracic aorta. IMPRESSION: 1. Extensive lymphadenopathy within the lower neck, chest, and visualized abdomen as described above. This is suspicious for a neoplastic process such as lymphoma. Metastatic disease could also have a s imilar appearance. 2. A 2.3 cm circumscribed nodule within the left lower lobe which could represent an enlarged bronchi al lymph node or separate bronchogenic malignancy. 3. Intraluminal polyps/masses within the esophagus as described above. Endoscopy recommended for furt her evaluation. 4. Additional findings as described above. ACT 112: Positive. There are findings on this exam that require communication between the performing entity and the patient following Patient Test Result Information Act ([place] Act 112) guidelines. Electronically signed by: Rolly Blum M.D. 07/04/2023 11:14 AM
[2023-07-04] MEDS: ACETAMINOPHEN 325 MG TAB PO PRN ×2 (11:26→20:34)
--- NOTE | 2023-07-04 12:04 | Gastrointestinal Consultation ---
Date of Consultation July 04, 2023 Assessment & Plan (1) Abdominal pain: (2) Abdominal lymphadenopathy: (3) Abnormal CT scan, chest: Plan Patient is a 63 y.o. male admitted with profound weight loss and abdominal pain and abnormal imaging concerning for underlying metastatic malignancy of uncertain primary with probable esophageal involvement. -NPO for now. -Proceed with diagnostic EGD today for further evaluation and bx. -Further recommendations pending results of testing. Thank you for allowing us to participate in the care of this patient. If you have any questions or concerns, please do not hesitate to contact us. Addendum at 1319: CT with findings of pneumomediastinum suggestive of perforation from suspected mass. Given this finding, EGD was canceled. Recommend surgical or IR guided lymph biopsy for tissue diagnosis. Supervising Physician Co-Signing Physician Notes I saw the patient and agree with the findings as documented by JAMIR Moore History of Present Illness Reason for Consultation: Dr. Ponce Requesting Physician: Abnormal CT chest Attending Physician: Lopez Ponce MD History of Present Illness Patient is a 63 y.o. male with a history of abdominal pain that has been ongoing for months. Was admitted in February of this year for symptoms and was under consideration for lap dena but was held off at that time. He was found on imaging to have lymphadenopathy concerning for lymphoma. He was readmitted with abdominal pain after sustaining an approximate 30 pound weight loss since April. He states he has difficulty eating and sensates "something" when he swallows. No food bolus or painful swallowing. The abdominal pains come and go, worse on the right side. Endorses intermittent f/c and night sweats. No joint pain. +Rectal bleeding. CT chest with findings of probable esophageal mass, imaging with concerning spinal lesion and diffuse lymphadenopathy. GI is being consulted for possible tissue bx. Family history is significant for mother with thyroid cancer. Allergies Allergy/AdvReac Type Severity Reaction Status Date / Time No Known Allergies Allergy Verified 07/02/23 20:13 Home Medications Medication Instructions Recorded Confirmed Type diclofenac sodium 50 mg 50 mg PO BID PRN Pain 03/15/23 07/02/23 History tablet,delayed release lamotrigine 100 mg tablet 100 mg PO HS 03/15/23 07/02/23 History (Lamictal) lisinopril 20 mg tablet 20 mg PO DAILY 03/15/23 07/02/23 History omeprazole 20 mg tablet,delayed 40 mg PO DAILY 03/15/23 07/02/23 History release pravastatin 10 mg tablet 10 mg PO HS 03/15/23 07/02/23 History trazodone 100 mg tablet 200 mg PO HS 03/15/23 07/02/23 History amlodipine 10 mg tablet 10 mg PO DAILY #30 tabs 03/18/23 07/02/23 Rx apixaban 5 mg tablet (Eliquis) 5 mg PO BID #60 tabs 03/18/23 07/02/23 Rx atenolol 25 mg tablet 25 mg PO QAM #30 tabs 03/18/23 07/02/23 Rx Patient History Medical History Atrial flutter Bipolar disorder GERD (gastroesophageal reflux disease) reports prior UGIB s/p EGD showing ulcers HLD (hyperlipidemia) Hypertension Mitral regurgitation Surgical History History of back surgery History of knee surgery Family History Mother Cancer Social History Smoking Status: Former smoker Hx Alcohol Use: No Hx Substance Use: No Preferred Language: Turkmen Communication Ability: Effective 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 Beliefs That Will Affect Care: None Current Living Situation: Other Current Living Situation Comment: [facility] Feels Safe at Home: Yes Assistive Devices: None Review of Systems Constitutional: as per Subjective / HPI Respiratory: no cough and no dyspnea Cardiovascular: no chest pain and no palpitations Musculoskeletal: as per Subjective / HPI Physical Exam Constitutional: WD/WN, vitals as above Eyes: EOM intact bilaterally Neck: normal visual inspection Respiratory: normal respiratory effort, lungs clear to auscultation Cardiovascular: Rate/Rhythm: regular rate and regular rhythm Gastrointestinal (Abdomen): Inspection/Auscultation: + abdomen distended and normal bowel sounds Percussion/Palpation: + abdomen tender, abdomen soft and + abdominal mass; no guarding and abdomen not rigid Psychiatric: A+Ox3, euthymic affect Results & Data Vital Signs (Past 12 Hours) Vital Signs Temp Pulse Resp BP Pulse Ox O2 Del Method 07/04/23 08:17 76 150/83 H 07/04/23 07:12 36.5 C 71 16 157/79 H 98 Room Air Diagnostic Findings Laboratory Results WBC 7.42 K/ul (4.8-10.8) 07/03/23 04:53 RBC 3.73 M/uL (4.70-6.10) L 07/03/23 04:53 Hgb 10.0 g/dl (14.0-18.0) L 07/03/23 04:53 Hct 31.1 % (42.0-52.0) L 07/03/23 04:53 MCV 83.4 fL (80.0-100.0) 07/03/23 04:53 MCH 26.8 pg (25.0-34.0) 07/03/23 04:53 MCHC 32.2 g/dL (32.0-36.0) 07/03/23 04:53 RDW Std Deviation 46.0 fL (36.4-46.3) 07/03/23 04:53 RDW Coeff of Joel 15.3 % (11.5-14.5) H 07/03/23 04:53 Plt Count 291 K/uL (130-400) 07/03/23 04:53 MPV 10.8 fL (9.4-12.4) 07/03/23 04:53 Immature Gran % (Auto) 0.3 % 07/02/23 16:15 Neut % (Auto) 73.6 % 07/02/23 16:15 Lymph % (Auto) 11.0 % 07/02/23 16:15 Coffee % (Auto) 11.9 % 07/02/23 16:15 Eos % (Auto) 2.6 % 07/02/23 16:15 Baso % (Auto) 0.6 % 07/02/23 16:15 Neut # (Auto) 6.56 K/uL (1.40-6.50) H 07/02/23 16:15 Lymph # (Auto) 0.98 K/uL (1.20-3.40) L 07/02/23 16:15 Coffee # (Auto) 1.06 K/uL (0.11-0.59) H 07/02/23 16:15 Eos # (Auto) 0.23 K/uL (0.00-0.50) 07/02/23 16:15 Baso # (Auto) 0.05 K/uL (0.00-0.20) 07/02/23 16:15 Immature Gran # (Auto) 0.03 K/uL (0.01-0.20) 07/02/23 16:15 Sodium 141 mmol/L (136-145) 07/04/23 06:49 Potassium 4.1 mmol/L (3.5-5.1) 07/04/23 06:49 Chloride 111 mmol/L (98-107) H 07/04/23 06:49 Carbon Dioxide 24 mmol/L (21-32) 07/04/23 06:49 Anion Gap 6 (3-11) 07/04/23 06:49 BUN 13 mg/dl (6-23) 07/04/23 06:49 Creatinine 1.42 mg/dl (0.6-1.4) H 07/04/23 06:49 Est Cr Clr Drug Dosing 60.9 ml/min 07/04/23 06:49 Est GFR ( Amer) 59.6 ml/min 07/04/23 06:49 Est GFR (Non-Af Amer) 51.5 ml/min 07/04/23 06:49 BUN/Creatinine Ratio 9.2 (10-20) L 07/04/23 06:49 Glucose 93 mg/dl (70-99(Fasting)) 07/04/23 06:49 Calcium 9.0 mg/dl (8.6-10.3) 07/04/23 06:49 Phosphorus 2.4 mg/dl (2.5-4.9) L 07/02/23 16:15 Magnesium 2.1 mg/dl (1.7-2.4) 07/02/23 16:15 Total Bilirubin 0.6 mg/dl (0.2-1.0) 07/02/23 16:15 AST 14 U/L (13-39) 07/02/23 16:15 ALT 7 U/L (7-52) 07/02/23 16:15 Alkaline Phosphatase 46 U/L (34-104) 07/02/23 16:15 Total Protein 7.5 gm/dl (6.0-8.3) 07/02/23 16:15 Albumin 4.2 gm/dl (3.4-5.0) 07/02/23 16:15 Globulin 3.3 gm/dl (2.5-4.0) 07/02/23 16:15 Albumin/Globulin Ratio 1.3 (0.9-2) 07/02/23 16:15 Lipase 10 U/L (11-82) L 07/02/23 16:15 Urine Color Yellow 07/03/23 06:04 Urine Appearance Clear (Clear) 07/03/23 06:04 Urine pH 6.5 (4.5-7.5) 07/03/23 06:04 Ur Specific [place] 1.011 (1.000-1.030) 07/03/23 06:04 Urine Protein Negative (Negative) 07/03/23 06:04 Urine Glucose (UA) Negative (Negative) 07/03/23 06:04 Urine Ketones Trace (Negative) H 07/03/23 06:04 Urine Blood Negative (Negative) 07/03/23 06:04 Urine Nitrite Negative (Negative) 07/03/23 06:04 Urine Bilirubin Negative (Negative) 07/03/23 06:04 Urine Urobilinogen Negative (Negative) 07/03/23 06:04 Ur Leukocyte Esterase Negative (Negative) 07/03/23 06:04 Stl C. cayetanensis PCR Not Detected (NotDetected) 07/04/23 07:15 Stool Rotavirus A PCR Not Detected (NotDetected) 07/04/23 07:15 Stl Adenov F 40/41 PCR Not Detected (NotDetected) 07/04/23 07:15 Stool Astrovirus (PCR) Not Detected (NotDetected) 07/04/23 07:15 Stool Campylobacter PCR Not Detected (NotDetected) 07/04/23 07:15 Stl C. diff Tox B Gene Negative Cdiff Gene (Neg) 07/04/23 07:15 Stool Cryptosporidium PCR Not Detected (NotDetected) 07/04/23 07:15 Stl E.coli Shiga Tox PCR Not Detected (NotDetected) 07/04/23 07:15 Stl Enterotoxigenic E PCR Not Detected (NotDetected) 07/04/23 07:15 Stool EPEC (PCR) Not Detected (NotDetected) 07/04/23 07:15 Stool EAEC (PCR) Not Detected (NotDetected) 07/04/23 07:15 Stl E. histolytica PCR Not Detected (NotDetected) 07/04/23 07:15 Stool Giardia Lamblia PCR Not Detected (NotDetected) 07/04/23 07:15 Stool Salmonella PCR Not Detected (NotDetected) 07/04/23 07:15 Stool Sapovirus (PCR) Not Detected (NotDetected) 07/04/23 07:15 Stl P. shigelloides PCR Not Detected (NotDetected) 07/04/23 07:15 Stl Shigella/EIEC PCR Not Detected (NotDetected) 07/04/23 07:15 St Y.enterocolitica PCR Not Detected (NotDetected) 07/04/23 07:15 Stool Vibrio (PCR) Not Detected (NotDetected) 07/04/23 07:15 Stl Vibrio cholerae PCR Not Detected (NotDetected) 07/04/23 07:15 Stl Norovirus GI/GII PCR Not Detected (NotDetected) 07/04/23 07:15 Impressions Abdomen Ultrasound 07/02/23 15:39 ABDOMINAL ULTRASOUND, RIGHT UPPER QUADRANT HISTORY: Right upper quadrant pain. COMPARISON: Abdomen and pelvis March 15, 2023 and right upper quadrant ultrasound March 16, 2023. FINDINGS: No hepatic lesions are identified. There is no biliary ductal dilatation. The common bile duct measures 2 mm in caliber. The pancreatic body is normal. Head and tail are obscured. Sludge within the gallbladder is noted as well as multiple small stones. No sonographic Aguiar sign was elicited. Gallbladder wall thickness is at the upper limits of normal. The gallbladder is mildly distended. There is no right hydronephrosis. Multiple hypoechoic gastrohepatic ligament, evy hepatis and aortocaval nodes are noted. Index node measures approximately 4.4 x 3.2 cm. These correspond to the enlarged lymph nodes on prior CT. IMPRESSION: 1. Cholelithiasis and sludge within the gallbladder. Mildly distended gallbladder with borderline gallbladder wall thickening. No sonographic Aguiar sign. Although not strongly suggestive, acute cholecystitis cannot be excluded. A hepatobiliary scan could be obtained as indicated. 2. Multiple pathologically enlarged upper abdominal lymph nodes, as described above. These are suspicious for malignancy. If not already evaluated, nonemergent Oncology consultation is recommended. ACT 112: Negative or not required by law. Electronically signed by: Duane Ortiz M.D. 07/02/2023 6:29 PM Abdomen/Pelvis CT 07/02/23 19:43 Exam(s): CT ABDOMEN + PELVIS Without Contrast EXAM: CT Abdomen and Pelvis Without Intravenous Contrast CLINICAL HISTORY: Reason for exam: abd pain, MAK. TECHNIQUE: Axial computed tomography images of the abdomen and pelvis without intravenous contrast. CTDI is 19.5 mGy and DLP is 980.67 mGy-cm. Automated exposure control was utilized for the study. A dose lowering technique was utilized adhering to the principles of ALARA. COMPARISON: No relevant prior studies available. FINDINGS: Lung bases: Unremarkable. No mass. No consolidation. ABDOMEN: Liver: Unremarkable. Gallbladder and bile ducts: Layering sludge in the gallbladder. No CT evidence of acute cholecystitis. No ductal dilation. Pancreas: Unremarkable. No ductal dilation. Spleen: Unremarkable. No splenomegaly. Adrenals: Unremarkable. No mass. Kidneys and ureters: Unremarkable. No hydronephrosis, nephrolithiasis, or obstructive uropathy. Stomach and bowel: Diverticulosis, without acute diverticulitis. No small bowel obstruction. No free intraperitoneal air. PELVIS: Appendix: No findings to suggest acute appendicitis. Bladder: Unremarkable. No stones. Reproductive: Unremarkable as visualized. ABDOMEN and PELVIS: Intraperitoneal space: Unremarkable. No free air. No significant fluid collection. Bones/joints: Degenerative changes of the spine. No acute fracture. No dislocation. Soft tissues: Unremarkable. Vasculature: Atherosclerotic changes of the aorta. No abdominal aortic aneurysm. Lymph nodes: RIGHT paravertebral mass measures 4.2 x 2.1 cm. Evaluation limited without contrast. This may represent an enlarged lymph node or paraganglioma. Thoracic spine MRI with contrast recommended. IMPRESSION: 1. No hydronephrosis, nephrolithiasis, or obstructive uropathy. 2. RIGHT paravertebral mass measures 4.2 x 2.1 cm. Evaluation limited without contrast. This may represent an enlarged lymph node or paraganglioma. Thoracic spine MRI with contrast recommended. 3. Layering sludge in the gallbladder. No CT evidence of acute cholecystitis. 4. Diverticulosis, without acute diverticulitis. No small bowel obstruction. No free intraperitoneal air. Electronically signed by: William Briseno MD 07/02/23 20:32 PM Hepatobiliary Scan Nuclear Medicine 07/03/23 01:17 NUCLEAR MEDICINE HEPATOBILIARY SCAN CLINICAL HISTORY: Abdominal pain. Cholelithiasis. COMPARISON: CT of the abdomen and pelvis and right upper quadrant ultrasound July 02, 2023. TECHNIQUE: 5.7 mCi of technetium 99m Choletec IV was injected at 10:08 AM on July 03, 2023. Immediately following injection, imaging of the abdomen was carried out for 60 minutes in the anterior projection. FINDINGS: Hepatic uptake of radiotracer is prompt and homogeneous. Activity is identified within the common bile duct at 10 minutes and gallbladder at 15 minutes. Small bowel activity is noted at 10 minutes. IMPRESSION: Normal hepatobiliary scan. No evidence for acute cholecystitis. ACT 112: Negative or not required by law. Electronically signed by: Duane Ortiz M.D. 07/03/2023 4:04 PM Lumbar Spine MRI 07/03/23 01:17 Exam(s): MRI L SPINE W/WO Contrast IV Amt: 8cc gadavist EXAM: MR Lumbar Spine Without and With Intravenous Contrast CLINICAL HISTORY: Reason for exam: right paravertebral mass. TECHNIQUE: Magnetic resonance images of the lumbar spine without and with intravenous contrast in multiple planes. CONTRAST: Patient received 8cc gadavist of IV contrast COMPARISON: CT abd/pel 07/02/2023 FINDINGS: Vertebrae: There are 5 lumbar type vertebral bodies with a mild levoscoliosis and normal lumbar lordosis. There is normal vertebral body height and alignment. The bone marrow signal is heterogeneous with reactive endplate changes and areas of focal fat or venous malformations. No acute fracture. Spinal cord: The conus is normal size, shape and signal characteristics, terminating at T12-L1. No abnormal enhancement. Soft tissues: Right periaortic retroperitoneal lymphadenopathy at the level of L1 and L2. Likely lymphadenopathy at the level of T11. Right renal cyst. IMPRESSION: Findings concerning for pathologic lymphadenopathy in the right periaortic retroperitoneal space. No evidence of acute lumbar spine pathology. Electronically signed by: Rohini Prakash MD 07/03/23 05:57 AM Thoracic Spine MRI 07/03/23 01:17 Exam(s): MRI T SPINE W/WO Contrast IV Amt: 8cc gadavist EXAM: MR Thoracic Spine Without and With Intravenous Contrast CLINICAL HISTORY: Reason for exam: right paravertebral mass. TECHNIQUE: Magnetic resonance images of the thoracic spine without and with intravenous contrast in multiple planes. CONTRAST: Patient received 8cc gadavist of IV contrast COMPARISON: Comparison made to prior CT scan of the abdomen and pelvis from July 02, 2023. FINDINGS: Vertebrae: Unremarkable. No acute fracture. Discs/spinal canal/neural foramina: No acute findings. No significant disc disease. No spinal canal stenosis. Spinal cord: Unremarkable. Normal signal. No abnormal enhancement. Soft tissues: There is a lobulated and enhancing soft tissue mass in the right prevertebral soft tissues at the level of T10 and T11 measuring approximately 40.5 x 20.8 x 23.7 mm. There are enlarged kimberly-aortic lymph nodes at T12 and L1. IMPRESSION: Enhancing lobulated soft tissue mass in the right prevertebral soft tissues concerning for neoplasm. The differential diagnosis includes lymphadenopathy/metastasis and less likely Neurogenic tumors such as nerve sheath tumor, parasympathetic ganglion tumor, sympathetic chain tumor. This most likely represents lymphadenopathy or metastasis with numerous enlarged retroperitoneal and periportal lymph nodes seen in the abdomen CT from the same day. Electronically signed by: Rohini Prakash MD 07/03/23 05:[address] 07/04/23 08:46 CT chest diagnostic wo con CT DOSE: 495.53 mGy.cm HISTORY: Abnormal abdominal CT. Lymphadenopathy. look for masses that can be accessible for biopsy TECHNIQUE: Multiaxial CT images of the chest were performed without contrast. A dose lowering technique was utilized adhering to the principles of ALARA. COMPARISON: Abdomen and pelvis CT 07/02/2023. FINDINGS: The central airways are patent. No pneumothorax. No pleural effusions. There are few punctate calcified granulomas within the left upper lung zone. There is a 2.3 cm circumscribed nodule within the left lower lobe on image 193. A few punctate calcified granulomas within the right upper lobe. Right basilar linear densities and a few faint patchy groundglass densities within the right lower lobe posteriorly. This may represent mild dependent change/atelectasis. A low-grade pneumonitis is not excluded. No suspicious lytic or blastic osseous lesions. Normal thyroid gland. Bulky upper abdominal lymphadenopathy again noted. Dominant gastrohepatic lymph node measures 4.9 x 3.9 cm. Lower thoracic right paravertebral lymphadenopathy again noted with the largest lymph node measuring 4.2 cm. Enlarged bilateral lower cervical/supraclavicular lymph nodes with the dominant left supraclavicular lymph node on image 32 measuring 2.9 cm. No axillary lymphadenopathy. Multiple enlarged superior mediastinal, subcarinal, and paraesophageal lymph nodes. There is thickening of the distal esophagus with a possible intraluminal mass best seen on image 171. This measures 1.9 cm. There is an additional intraluminal nodule/polyp within the upper esophagus on image 65 measuring 11 mm. The heart is normal in size. Normal caliber thoracic aorta. IMPRESSION: 1. Extensive lymphadenopathy within the lower neck, chest, and visualized abdomen as described above. This is suspicious for a neoplastic process such as lymphoma. Metastatic disease could also have a similar appearance. 2. A 2.3 cm circumscribed nodule within the left lower lobe which could represent an enlarged bronchial lymph node or separate bronchogenic malignancy. 3. Intraluminal polyps/masses within the esophagus as described above. Endoscopy recommended for further evaluation. 4. Additional findings as described above. ACT 112: Positive. There are findings on this exam that require communication between the performing entity and the patient following Patient Test Result Information Act ([place] Act 112) guidelines. Electronically signed by: Rolly Blum M.D. 07/04/2023 11:14 AM PG Care Time/CCT Total # of Minutes Spent Total Time Spent with Patient: Total time spent is greater than 50% in coordination of care (as documented) at patient's floor/unit and/or counseling patient: Coding Level of Care Code 40543 IN/OBS CONSULT LVL 3,45M Diagnoses Abdominal pain R10.84 Abdominal location: generalized Abdominal lymphadenopathy R59.[address] scan, chest R93.89 (1) Abdominal pain Abdominal location: generalized Qualified Code(s): R10.84 - Generalized abdominal pain
[2023-07-04] MEDS ORDERED: PIPERACILLIN/TAZOBACTAM 4.5 GM in DEXTROSE 5% MINI-B 100 ML IV ONE (14:00)
--- NOTE | 2023-07-04 15:21 | Hospitalist Progress Note ---
Date of Service July 04, 2023 Assessment & Plan (1) Abdominal pain: (2) Enlarged lymph nodes: (3) MAK (acute kidney injury): (4) Bipolar disorder: (5) GERD (gastroesophageal reflux disease): (6) Hypertension: (7) HLD (hyperlipidemia): (8) Atrial flutter: Plan #Abdominal Pain HIDA unremarkable Stool Biofire negative could be secondary to mass effect General surgery recommended no surgical intervention for gallbladder #Enlarged Lymph Nodes Possible malignant primary neoplasm of unknown site with possible retroperitoneal and lymphatic metastases Was supposed to have PET, never completed after last admission MRI thoracic and lumbar spine showed right periaortic lymphadenopathy and right prevertebral mass. Spoke to IR We will keep the patient n.p.o. postmidnight tonight for IR guided left neck lymph node biopsy # question of pneumomediastinum IR had recommended a CT chest CT chest showed findings suggestive of mediastinum from a ? Perforation versus a diverticulum GI was involved for the purpose of getting an EGD and biopsy of the esophageal mass. However after seeing the CT findings, EGD was canceled The patient was started on Zosyn IV However patient is asymptomatic and does not seem to have a esophageal perforation. Plan to keep him n.p.o. for now We will repeat CT chest (hopefully with contrast if creatinine improved) soon #MAK continue IV fluids. Switch to D5 normal saline since the patient has remained n.p.o. repeat BMP No obstructive pathology noted on CT #Atrial Flutter Currently NSR Hold Eliquis until biopsy obtained #Bi Polar I Continue home Lamictal and trazodone #GERD Omeprazole #HTN Hold lisinopril Continue amlodipine, atenolol #HLD pravastatin Admission and Anticipated Discharge Date Admission Date: July 02, 2023 Subjective patient does not have any major complaints other than being hungry. He has no abdominal pain. Does not have diarrhea anymore. Review of Systems Review of Systems: All systems reviewed & are unremarkable except as noted in Subjective Physical Exam Physical Exam: General: Awake, conversant Heart: S1, S2/regular rate and rhythm, no murmur rubs or gallops Lungs: Clear to auscultation bilaterally. Normal effort Abdomen: Soft/nontender/nondistended. No hepatosplenomegaly Extremities: No clubbing/cyanosis. No edema Behavior: Appropriate, cooperative Results & Data Results & Data Vital Signs (Past 12 Hours) Vital Signs Temp Pulse Resp BP Pulse Ox O2 Del Method 07/04/23 14:10 36.6 C 71 16 155/82 H 100 Room Air 07/04/23 08:17 76 150/83 H 07/04/23 07:12 36.5 C 71 16 157/79 H 98 Room Air Laboratory Results Abnormal lab results 07/04/23 Range/Units 06:49 Chloride 111 H (98-107) mmol/L Creatinine 1.42 H (0.6-1.4) mg/dl BUN/Creatinine Ratio 9.2 L (10-20) PG Care Time/CCT Total # of Minutes Spent Total Time Spent with Patient: Total time spent is greater than 50% in coordination of care (as documented) at patient's floor/unit and/or counseling patient: Coding Level of Care Code 96773 SUB INP/OBS CARE 2/35MIN Diagnoses Abdominal pain R10.9 Enlarged lymph nodes R59.9 MAK (acute kidney injury) N17.9 Bipolar disorder F31.9 GERD (gastroesophageal reflux disease) K21.9 Hypertension I10 HLD (hyperlipidemia) E78.5 Atrial flutter I48.92
[2023-07-04] MEDS: D5W AND NSS 1,000 ML IV SCH ×2 (15:35→23:27)
[2023-07-04] MEDS: PIPERACILLIN/TAZOBACTAM 4.5 GM in DEXTROSE 5% MINI-B 100 ML IV SCH (18:04)
[2023-07-04] MEDS: lamoTRIgine 100 MG TAB PO SCH (20:35)
[2023-07-04] MEDS: PRAVASTATIN SOD 10 MG TAB PO SCH (20:35)
[2023-07-04] MEDS: traZODone HCL 100 MG TAB PO SCH (20:35)
[2023-07-05] MEDS: PIPERACILLIN/TAZOBACTAM 4.5 GM in DEXTROSE 5% MINI-B 100 ML IV SCH ×3 (02:20→17:54)
[2023-07-05] MEDS: D5W AND NSS 1,000 ML IV SCH (07:12)
[2023-07-05] MEDS: amLODIPine BESYLATE 5 MG TAB PO SCH (07:12)
[2023-07-05] MEDS: PANTOprazole 40 MG TAB PO SCH (07:13)
[2023-07-05] MEDS: ATENOLOL 25 MG TABLET PO SCH (07:13)
[2023-07-05] MEDS: ACETAMINOPHEN 325 MG TAB PO PRN ×2 (07:15→20:03)
[2023-07-05 07:57] LABS: BUN Creatinine Ratio 7.7 (10-20); Calcium 8.9 mg/dl (8.6-10.3); Creatinine Clr Calc Pharmacy 66.5 ml/min; Est GFR (African American) 66.4 ml/min; Est GFR (Non-African American) 57.3 ml/min; Potassium 3.7 mmol/L (3.5-5.1)
[2023-07-05 09:04] LABS: Hematocrit (blood only) 31.6 % (42.0-52.0); Hemoglobin 10.3 g/dl (14.0-18.0); Mean Corpuscular Hemoglobin 26.8 pg (25.0-34.0); Mean Corpuscular Hgb Conc 32.6 g/dL (32.0-36.0); Mean Corpuscular Volume 82.3 fL (80.0-100.0); Mean Platelet Volume 11.3 fL (9.4-12.4); Platelet Count 255 K/uL (130-400); RDW Coefficient of Variation 15.3 % (11.5-14.5); Red Blood Count 3.84 M/uL (4.70-6.10); White Blood Count 6.61 K/ul (4.8-10.8)
--- NOTE | 2023-07-05 11:21 | Ultrasound Report ---
Ultrasound-guided left neck lymph node FNA INDICATION: Lymphadenopathy PROCEDURE: Procedure and risks were explained. Informed consent was obtained. A final timeout was com pleted. The neck was prepped and draped in sterile fashion. 1% buffered lidocaine was utilized for sk in anesthesia. Utilizing ultrasound guidance, a 25-gauge needle was advanced into the 4.3 cm abnormal-appearing left neck lymph node. Ultrasound images were obtained. 5 aspirates were obtained and given to the patholo gist for review. The patient tolerated the procedure well. IMPRESSION: Left neck lymph node FNA as above. Performed, dictated, and signed by Dennys Pa PA-C; to be co-signed by Dr. Les Carbajal. Electronically signed by: Les Carbajla M.D. 07/05/2023 11:24 AM
[2023-07-05] MEDS ORDERED: OPTIRAY 320 100ml IV ONE (13:03)
--- NOTE | 2023-07-05 13:57 | CT Scan Report ---
CT SCAN OF THE CHEST WITH IV CONTRAST CLINICAL HISTORY: Possible esophageal polyps or lesions. COMPARISON STUDY: Chest CT dated 07/04/2023. TECHNIQUE: Following the IV administration of 92 cc of Optiray 320, CT scan of the thorax was perform ed from the thoracic inlet to the upper abdomen. Images are reviewed in the axial, sagittal, and fany nal planes. IV contrast was administered without complication. A dose lowering technique was utilize d adhering to the principles of ALARA. CT DOSE: 593.08 mGy.cm FINDINGS: Thyroid: Imaged portions of the thyroid gland are normal in size and attenuation. Thoracic aorta: The thoracic aorta is normal in caliber and demonstrates bovine variant arch anatomy. No dissection is seen. Pulmonary vasculature: The pulmonary trunk is normal in caliber. There are no filling defects identif ied in the central pulmonary vessels to indicate pulmonary embolus. Note that this examination was no t protocoled for evaluation of the pulmonary arteries. Heart: The heart is enlarged and without pericardial effusion. Lungs and pleural spaces: There is mild emphysema. Scattered calcified granulomas are observed. A lef t lower lobe peribronchial node or nodule seen on image #181 measures 2.6 x 1.8 cm. There are trace p leural effusions with dependent atelectasis. No airspace consolidation is seen typical for pneumonia. Lower neck: There is bulky left supraclavicular lymphadenopathy. A node on image #10 measures 3.4 x 2 .9 cm. Mediastinum: There is bulky mediastinal lymphadenopathy. A high prevascular node on image #64 measure s 3.1 x 2.5 cm. A subcarinal node on image #112 measures 4.0 x 2.7 cm. A right paravertebral babs a ggregate at T11 seen on image #185 measures 5.7 x 2.9 cm. These findings are unchanged from yesterday . Tara: Clear. Axillae: There is no axillary lymphadenopathy. Esophagus: The mid to distal esophagus shows significant irregular wall thickening with a lobulated a ppearance. This extends approximately 13.5 cm in craniocaudal length, from the level of the nancy to the gastroesophageal junction. An 11 mm intraluminal nodule or polypoid structure is seen in the upp er esophagus on image #54. This is unchanged from yesterday and located at the level of T3-T4. A smal l focus of paraesophageal gas is again seen at the level of the left mainstem bronchus on image #92. This does not clearly communicate with the esophagus and is of indeterminate etiology and significanc e. There is mild infiltration identified around the esophagus at this level. Upper abdomen: There is bulky upper abdominal lymphadenopathy. A babs aggregate in the gastrohepatic space on image #224 measures approximately 8 x 4.5 cm. A right retroperitoneal babs aggregate on im age #264 measures 6.3 x 4.0 cm. This partially encases the abdominal aorta. The encases and severely narrows the right renal artery as seen on image #247. The spleen is enlarged measuring over 13 cm in length. There are scattered subcentimeter hypervascular foci within liver, likely representing foci o f shunt vascularity or flash filling hemangiomas. Skeletal structures: The skeletal structures are osteopenic. Degenerative change is noted in the shou lders and spine. No lytic or blastic bony lesions are seen. There are chronic/healed right-sided rib fractures. IMPRESSION: 1. Again seen is bulky lymphadenopathy in the left lower neck, mediastinum, paravertebral region, and upper abdomen. Neoplasm is the diagnosis of exclusion, and the appearance favors lymphoma. 2. A right retroperitoneal babs aggregate encases and severely narrows the proximal right renal jose ry. This is nearly occluded. 3. The mid to distal esophagus shows significant irregular wall thickening and lobulation consistent with an infiltrative mass. Given the above findings this likely represents lymphomatous involvement. An esophageal neoplasm is considered less likely but could potentially a similar. Correlation with en doscopy will be required. 4. An additional polypoid structure is seen within the lumen of the upper esophagus. This is unchange d from yesterday. 5. A small focus of gas along the left aspect of the esophagus is unchanged from yesterday. There is mild infiltration around the esophagus at this level . This remains indeterminant, and a small esopha geal perforation or diverticulum could have this appearance. This can also be assessed with endoscopy . 6. Cardiomegaly and mild emphysema. 7. A 2.6 cm peribronchial lymph node versus lung nodule is again seen in the left lower lobe. A lymph node is favored given the above findings. 8. Trace pleural effusions. 9. There is no airspace consolidation typical for pneumonia. 10. Splenomegaly. 11. Additional findings as above. ACT 112: Negative or not required by law. Electronically signed by: Ollie Noyola M.D. 07/05/2023 1:56 PM
--- NOTE | 2023-07-05 14:47 | Hospitalist Progress Note ---
Date of Service July 05, 2023 Assessment & Plan (1) Abdominal pain: (2) Enlarged lymph nodes: (3) MAK (acute kidney injury): (4) Bipolar disorder: (5) GERD (gastroesophageal reflux disease): (6) Hypertension: (7) HLD (hyperlipidemia): (8) Atrial flutter: Plan #Abdominal Pain HIDA unremarkable Stool Biofire negative could be secondary to mass effect General surgery recommended no surgical intervention for gallbladder #Enlarged Lymph Nodes Possible malignant primary neoplasm of unknown site with possible retroperitoneal and lymphatic metastases Was supposed to have PET, never completed after last admission MRI thoracic and lumbar spine showed right periaortic lymphadenopathy and right prevertebral mass. Patient had biopsy from left side of his neck done by IR today 07/05. Awaiting pathology results. if biopsies unrevealing, will proceed to EGD early next week. # question of pneumomediastinum IR had recommended a CT chest CT chest showed findings suggestive of mediastinum from a ? Perforation versus a diverticulum Now that his creatinine has stabilized, CT chest with contrast was done today 07/05. CT study was indeterminant as to whether this is a esophageal diverticulum or perforation. Since the patient is so stable hemodynamically and is completely asymptomatic, decision was made to advance diet after speaking to GI. Perforation would be highly unlikely. Continue Zosyn IV #MAK Resolved with IV fluid Monitor BMP No obstructive pathology noted on CT #Atrial Flutter Currently NSR Hold Eliquis for now #Bi Polar I Continue home Lamictal and trazodone #GERD Omeprazole #HTN Hold lisinopril Continue amlodipine, atenolol #HLD pravastatin Admission and Anticipated Discharge Date Admission Date: July 02, 2023 Subjective The patient feels well. No chest pain, no shortness of breath, no abdominal pain. All he wants to talk about his food. He had a lymph node biopsy done today by IR. Review of Systems Review of Systems: All systems reviewed & are unremarkable except as noted in Subjective Physical Exam Physical Exam: General: Awake, conversant Heart: S1, S2/regular rate and rhythm, no murmur rubs or gallops Lungs: Clear to auscultation bilaterally. Normal effort Abdomen: Soft/nontender/nondistended. No hepatosplenomegaly Extremities: No clubbing/cyanosis. No edema Behavior: Appropriate, cooperative Results & Data Results & Data Vital Signs (Past 12 Hours) Vital Signs Temp Pulse Resp BP Pulse Ox O2 Del Method 07/05/23 07:10 36.4 C L 74 16 158/74 H 99 Room Air Laboratory Results Abnormal lab results 07/05/23 07/05/23 Range/Units 07:09 08:50 RBC 3.84 L (4.70-6.10) M/uL Hgb 10.3 L (14.0-18.0) g/dl Hct 31.6 L (42.0-52.0) % RDW Coeff of Joel 15.3 H (11.5-14.5) % Chloride 110 H (98-107) mmol/L BUN/Creatinine Ratio 7.7 L (10-20) Glucose 112 H (70-99(Fasting)) mg/dl Diagnostic Findings Aspiration 07/05/23 00:00 Ultrasound-guided left neck lymph node FNA INDICATION: Lymphadenopathy PROCEDURE: Procedure and risks were explained. Informed consent was obtained. A final timeout was completed. The neck was prepped and draped in sterile fashion. 1% buffered lidocaine was utilized for skin anesthesia. Utilizing ultrasound guidance, a 25-gauge needle was advanced into the 4.3 cm abnormal-appearing left neck lymph node. Ultrasound images were obtained. 5 aspirates were obtained and given to the pathologist for review. The patient tolerated the procedure well. IMPRESSION: Left neck lymph node FNA as above. Performed, dictated, and signed by Dennys Pa PA-C; to be co-signed by Dr. Les Carbajal. Electronically signed by: Les Carbajal M.D. 07/05/2023 11:[address] 07/05/23 12:05 CT SCAN OF THE CHEST WITH IV CONTRAST CLINICAL HISTORY: Possible esophageal polyps or lesions. COMPARISON STUDY: Chest CT dated 07/04/2023. TECHNIQUE: Following the IV administration of 92 cc of Optiray 320, CT scan of the thorax was performed from the thoracic inlet to the upper abdomen. Images are reviewed in the axial, sagittal, and coronal planes. IV contrast was administered without complication. A dose lowering technique was utilized adhering to the principles of ALARA. CT DOSE: 593.08 mGy.cm FINDINGS: Thyroid: Imaged portions of the thyroid gland are normal in size and attenuation. Thoracic aorta: The thoracic aorta is normal in caliber and demonstrates bovine variant arch anatomy. No dissection is seen. Pulmonary vasculature: The pulmonary trunk is normal in caliber. There are no filling defects identified in the central pulmonary vessels to indicate pulmonary embolus. Note that this examination was not protocoled for evaluation of the pulmonary arteries. Heart: The heart is enlarged and without pericardial effusion. Lungs and pleural spaces: There is mild emphysema. Scattered calcified granulomas are observed. A left lower lobe peribronchial node or nodule seen on image #181 measures 2.6 x 1.8 cm. There are trace pleural effusions with dependent atelectasis. No airspace consolidation is seen typical for pneumonia. Lower neck: There is bulky left supraclavicular lymphadenopathy. A node on image #10 measures 3.4 x 2.9 cm. Mediastinum: There is bulky mediastinal lymphadenopathy. A high prevascular node on image #64 measures 3.1 x 2.5 cm. A subcarinal node on image #112 measures 4.0 x 2.7 cm. A right paravertebral babs aggregate at T11 seen on image #185 measures 5.7 x 2.9 cm. These findings are unchanged from yesterday. Tara: Clear. Axillae: There is no axillary lymphadenopathy. Esophagus: The mid to distal esophagus shows significant irregular wall thickening with a lobulated appearance. This extends approximately 13.5 cm in craniocaudal length, from the level of the nancy to the gastroesophageal junction. An 11 mm intraluminal nodule or polypoid structure is seen in the upper esophagus on image #54. This is unchanged from yesterday and located at the level of T3-T4. A small focus of paraesophageal gas is again seen at the level of the left mainstem bronchus on image #92. This does not clearly communicate with the esophagus and is of indeterminate etiology and significance. There is mild infiltration identified around the esophagus at this level. Upper abdomen: There is bulky upper abdominal lymphadenopathy. A babs aggregate in the gastrohepatic space on image #224 measures approximately 8 x 4.5 cm. A right retroperitoneal babs aggregate on image #264 measures 6.3 x 4.0 cm. This partially encases the abdominal aorta. The encases and severely narrows the right renal artery as seen on image #247. The spleen is enlarged measuring over 13 cm in length. There are scattered subcentimeter hypervascular foci within liver, likely representing foci of shunt vascularity or flash filling hemangiomas. Skeletal structures: The skeletal structures are osteopenic. Degenerative change is noted in the shoulders and spine. No lytic or blastic bony lesions are seen. There are chronic/healed right-sided rib fractures. IMPRESSION: 1. Again seen is bulky lymphadenopathy in the left lower neck, mediastinum, paravertebral region, and upper abdomen. Neoplasm is the diagnosis of exclusion, and the appearance favors lymphoma. 2. A right retroperitoneal babs aggregate encases and severely narrows the proximal right renal artery. This is nearly occluded. 3. The mid to distal esophagus shows significant irregular wall thickening and lobulation consistent with an infiltrative mass. Given the above findings this likely represents lymphomatous involvement. An esophageal neoplasm is considered less likely but could potentially a similar. Correlation with endoscopy will be required. 4. An additional polypoid structure is seen within the lumen of the upper esophagus. This is unchanged from yesterday. 5. A small focus of gas along the left aspect of the esophagus is unchanged from yesterday. There is mild infiltration around the esophagus at this level . This remains indeterminant, and a small esophageal perforation or diverticulum could have this appearance. This can also be assessed with endoscopy. 6. Cardiomegaly and mild emphysema. 7. A 2.6 cm peribronchial lymph node versus lung nodule is again seen in the left lower lobe. A lymph node is favored given the above findings. 8. Trace pleural effusions. 9. There is no airspace consolidation typical for pneumonia. 10. Splenomegaly. 11. Additional findings as above. ACT 112: Negative or not required by law. Electronically signed by: Ollie Noyola M.D. 07/05/2023 1:56 PM PG Care Time/CCT Total # of Minutes Spent Total Time Spent with Patient: Total time spent is greater than 50% in coordination of care (as documented) at patient's floor/unit and/or counseling patient: Coding Level of Care Code 82836 SUB INP/OBS CARE 2/35MIN Diagnoses Abdominal pain R10.9 Enlarged lymph nodes R59.9 MAK (acute kidney injury) N17.9 Bipolar disorder F31.9 GERD (gastroesophageal reflux disease) K21.9 Hypertension I10 HLD (hyperlipidemia) E78.5 Atrial flutter I48.92
[2023-07-05] MEDS: PRAVASTATIN SOD 10 MG TAB PO SCH (20:04)
[2023-07-05] MEDS: traZODone HCL 100 MG TAB PO SCH (20:04)
[2023-07-05] MEDS: lamoTRIgine 100 MG TAB PO SCH (20:04)
[2023-07-06] MEDS: PIPERACILLIN/TAZOBACTAM 4.5 GM in DEXTROSE 5% MINI-B 100 ML IV SCH ×3 (02:16→17:52)
[2023-07-06 07:34] LABS: BUN Creatinine Ratio 8.1 (10-20); Creatinine Clr Calc Pharmacy 63.6 ml/min; Est GFR (African American) 62.8 ml/min; Est GFR (Non-African American) 54.2 ml/min
[2023-07-06] MEDS: ACETAMINOPHEN 325 MG TAB PO PRN ×3 (08:26→19:57)
[2023-07-06] MEDS: ATENOLOL 25 MG TABLET PO SCH (08:28)
[2023-07-06] MEDS: PANTOprazole 40 MG TAB PO SCH (08:28)
[2023-07-06] MEDS: amLODIPine BESYLATE 5 MG TAB PO SCH (08:28)
--- NOTE | 2023-07-06 11:07 | Hospitalist Progress Note ---
Date of Service July 06, 2023 Assessment & Plan (1) Abdominal pain: (2) Enlarged lymph nodes: (3) MAK (acute kidney injury): (4) Bipolar disorder: (5) GERD (gastroesophageal reflux disease): (6) Hypertension: (7) HLD (hyperlipidemia): (8) Atrial flutter: Plan #Abdominal Pain HIDA unremarkable Stool Biofire negative could be secondary to mass effect General surgery recommended no surgical intervention for gallbladder #Enlarged Lymph Nodes Possible malignant primary neoplasm of unknown site with possible retroperitoneal and lymphatic metastases Was supposed to have PET, never completed after last admission MRI thoracic and lumbar spine showed right periaortic lymphadenopathy and right prevertebral mass. Patient had biopsy from left side of his neck done by IR 07/05. Awaiting pathology results. if biopsies unrevealing, will proceed to EGD early next week. # question of pneumomediastinum IR had recommended a CT chest CT chest showed findings suggestive of mediastinum from a ? Perforation versus a diverticulum Now that his creatinine has stabilized, CT chest with contrast was done today 07/05. CT study was indeterminant as to whether this is a esophageal diverticulum or perforation. Since the patient is so stable hemodynamically and is completely asymptomatic, decision was made to advance diet after speaking to GI. Perforation would be highly unlikely. Patient has been tolerating a p.o. diet Continue Zosyn IV #MAK Resolved with IV fluid Monitor BMP No obstructive pathology noted on CT #Atrial Flutter Currently NSR Hold Eliquis for now #Bi Polar I Continue home Lamictal and trazodone #GERD Omeprazole #HTN Hold lisinopril Continue amlodipine, atenolol #HLD pravastatin Admission and Anticipated Discharge Date Admission Date: July 02, 2023 Subjective Patient has been tolerating a full liquid diet. Has no complaints of abdominal pain, chest pain, shortness of breath. Vital signs remained stable. Review of Systems Review of Systems: All systems reviewed & are unremarkable except as noted in Subjective Physical Exam Physical Exam: General: Awake, conversant Heart: S1, S2/regular rate and rhythm, no murmur rubs or gallops Lungs: Clear to auscultation bilaterally. Normal effort Abdomen: Soft/nontender/nondistended. No hepatosplenomegaly Extremities: No clubbing/cyanosis. No edema Behavior: Appropriate, cooperative Results & Data Results & Data Vital Signs (Past 12 Hours) Vital Signs Temp Pulse Resp BP Pulse Ox O2 Del Method 07/06/23 08:12 36.4 C L 75 16 153/85 H 98 Room Air Laboratory Results Abnormal lab results 07/06/23 Range/Units 05:30 BUN/Creatinine Ratio 8.1 L (10-20) Diagnostic Findings Aspiration 07/05/23 00:00 Ultrasound-guided left neck lymph node FNA INDICATION: Lymphadenopathy PROCEDURE: Procedure and risks were explained. Informed consent was obtained. A final timeout was completed. The neck was prepped and draped in sterile fashion. 1% buffered lidocaine was utilized for skin anesthesia. Utilizing ultrasound guidance, a 25-gauge needle was advanced into the 4.3 cm abnormal-appearing left neck lymph node. Ultrasound images were obtained. 5 aspirates were obtained and given to the pathologist for review. The patient tolerated the procedure well. IMPRESSION: Left neck lymph node FNA as above. Performed, dictated, and signed by Dennys Pa PA-C; to be co-signed by Dr. Les Carbajal. Electronically signed by: Les Carbajal M.D. 07/05/2023 11:[address] 07/05/23 12:05 CT SCAN OF THE CHEST WITH IV CONTRAST CLINICAL HISTORY: Possible esophageal polyps or lesions. COMPARISON STUDY: Chest CT dated 07/04/2023. TECHNIQUE: Following the IV administration of 92 cc of Optiray 320, CT scan of the thorax was performed from the thoracic inlet to the upper abdomen. Images are reviewed in the axial, sagittal, and coronal planes. IV contrast was administered without complication. A dose lowering technique was utilized adhering to the principles of ALARA. CT DOSE: 593.08 mGy.cm FINDINGS: Thyroid: Imaged portions of the thyroid gland are normal in size and attenuation. Thoracic aorta: The thoracic aorta is normal in caliber and demonstrates bovine variant arch anatomy. No dissection is seen. Pulmonary vasculature: The pulmonary trunk is normal in caliber. There are no filling defects identified in the central pulmonary vessels to indicate pulmonary embolus. Note that this examination was not protocoled for evaluation of the pulmonary arteries. Heart: The heart is enlarged and without pericardial effusion. Lungs and pleural spaces: There is mild emphysema. Scattered calcified granulomas are observed. A left lower lobe peribronchial node or nodule seen on image #181 measures 2.6 x 1.8 cm. There are trace pleural effusions with dependent atelectasis. No airspace consolidation is seen typical for pneumonia. Lower neck: There is bulky left supraclavicular lymphadenopathy. A node on image #10 measures 3.4 x 2.9 cm. Mediastinum: There is bulky mediastinal lymphadenopathy. A high prevascular node on image #64 measures 3.1 x 2.5 cm. A subcarinal node on image #112 measures 4.0 x 2.7 cm. A right paravertebral babs aggregate at T11 seen on image #185 measures 5.7 x 2.9 cm. These findings are unchanged from yesterday. Tara: Clear. Axillae: There is no axillary lymphadenopathy. Esophagus: The mid to distal esophagus shows significant irregular wall t hickening with a lobulated appearance. This extends approximately 13.5 cm in craniocaudal length, from the level of the nancy to the gastroesophageal junction. An 11 mm intraluminal nodule or polypoid structure is seen in the upper esophagus on image #54. This is unchanged from yesterday and located at the level of T3-T4. A small focus of paraesophageal gas is again seen at the level of the left mainstem bronchus on image #92. This does not clearly communicate with the esophagus and is of indeterminate etiology and significance. There is mild infiltration identified around the esophagus at this level. Upper abdomen: There is bulky upper abdominal lymphadenopathy. A babs aggregate in the gastrohepatic space on image #224 measures approximately 8 x 4.5 cm. A right retroperitoneal babs aggregate on image #264 measures 6.3 x 4.0 cm. This partially encases the abdominal aorta. The encases and severely narrows the right renal artery as seen on image #247. The spleen is enlarged measuring over 13 cm in length. There are scattered subcentimeter hypervascular foci within liver, likely representing foci of shunt vascularity or flash filling hemangiomas. Skeletal structures: The skeletal structures are osteopenic. Degenerative change is noted in the shoulders and spine. No lytic or blastic bony lesions are seen. There are chronic/healed right-sided rib fractures. IMPRESSION: 1. Again seen is bulky lymphadenopathy in the left lower neck, mediastinum, paravertebral region, and upper abdomen. Neoplasm is the diagnosis of exclusion, and the appearance favors lymphoma. 2. A right retroperitoneal babs aggregate encases and severely narrows the proximal right renal artery. This is nearly occluded. 3. The mid to distal esophagus shows significant irregular wall thickening and lobulation consistent with an infiltrative mass. Given the above findings this likely represents lymphomatous involvement. An esophageal neoplasm is considered less likely but could potentially a similar. Correlation with endoscopy will be required. 4. An additional polypoid structure is seen within the lumen of the upper esophagus. This is unchanged from yesterday. 5. A small focus of gas along the left aspect of the esophagus is unchanged from yesterday. There is mild infiltration around the esophagus at this level . This remains indeterminant, and a small esophageal perforation or diverticulum could have this appearance. This can also be assessed with endoscopy. 6. Cardiomegaly and mild emphysema. 7. A 2.6 cm peribronchial lymph node versus lung nodule is again seen in the left lower lobe. A lymph node is favored given the above findings. 8. Trace pleural effusions. 9. There is no airspace consolidation typical for pneumonia. 10. Splenomegaly. 11. Additional findings as above. ACT 112: Negative or not required by law. Electronically signed by: Ollie Noyola M.D. 07/05/2023 1:56 PM PG Care Time/CCT Total # of Minutes Spent Total Time Spent with Patient: Total time spent is greater than 50% in coordination of care (as documented) at patient's floor/unit and/or counseling patient: Coding Level of Care Code 16379 SUB INP/OBS CARE 2/35MIN Diagnoses Abdominal pain R10.9 Enlarged lymph nodes R59.9 MAK (acute kidney injury) N17.9 Bipolar disorder F31.9 GERD (gastroesophageal reflux disease) K21.9 Hypertension I10 HLD (hyperlipidemia) E78.5 Atrial flutter I48.92
[2023-07-06] MEDS: lamoTRIgine 100 MG TAB PO SCH (19:57)
[2023-07-06] MEDS: PRAVASTATIN SOD 10 MG TAB PO SCH (19:57)
[2023-07-06] MEDS: traZODone HCL 100 MG TAB PO SCH (19:57)
[2023-07-07] MEDS: PIPERACILLIN/TAZOBACTAM 4.5 GM in DEXTROSE 5% MINI-B 100 ML IV SCH ×3 (01:42→17:36)
[2023-07-07] MEDS: ACETAMINOPHEN 325 MG TAB PO PRN ×4 (01:45→20:39)
[2023-07-07 07:24] LABS: Hematocrit (blood only) 33.4 % (42.0-52.0); Hemoglobin 10.8 g/dl (14.0-18.0); Mean Corpuscular Hemoglobin 26.7 pg (25.0-34.0); Mean Corpuscular Hgb Conc 32.3 g/dL (32.0-36.0); Mean Corpuscular Volume 82.7 fL (80.0-100.0); Mean Platelet Volume 11.6 fL (9.4-12.4); Platelet Count 295 K/uL (130-400); RDW Coefficient of Variation 15.5 % (11.5-14.5); RDW Standard Deviation 46.8 fL (36.4-46.3); Red Blood Count 4.04 M/uL (4.70-6.10); White Blood Count 7.61 K/ul (4.8-10.8)
[2023-07-07 07:44] LABS: BUN Creatinine Ratio 8.6 (10-20); Calcium 9.5 mg/dl (8.6-10.3); Creatinine Clr Calc Pharmacy 62.2 ml/min; Est GFR (African American) 61.2 ml/min; Est GFR (Non-African American) 52.8 ml/min; Potassium 3.8 mmol/L (3.5-5.1)
[2023-07-07] MEDS: ATENOLOL 25 MG TABLET PO SCH (08:49)
[2023-07-07] MEDS: PANTOprazole 40 MG TAB PO SCH (08:49)
[2023-07-07] MEDS: amLODIPine BESYLATE 5 MG TAB PO SCH (08:49)
--- NOTE | 2023-07-07 15:06 | Hospitalist Progress Note ---
Date of Service July 07, 2023 Assessment & Plan (1) Abdominal pain: (2) Enlarged lymph nodes: (3) MAK (acute kidney injury): (4) Bipolar disorder: (5) GERD (gastroesophageal reflux disease): (6) Hypertension: (7) HLD (hyperlipidemia): (8) Atrial flutter: Plan #Abdominal Pain HIDA unremarkable Stool Biofire negative could be secondary to mass effect General surgery recommended no surgical intervention for gallbladder #Enlarged Lymph Nodes Possible malignant primary neoplasm of unknown site with possible retroperitoneal and lymphatic metastases Was supposed to have PET, never completed after last admission MRI thoracic and lumbar spine showed right periaortic lymphadenopathy and right prevertebral mass. Patient had biopsy from left side of his neck done by IR 07/05. Awaiting pathology results. if biopsies unrevealing, will proceed to EGD early next week. # question of pneumomediastinum IR had recommended a CT chest CT chest showed findings suggestive of mediastinum from a ? Perforation versus a diverticulum Now that his creatinine has stabilized, CT chest with contrast was done today 07/05. CT study was indeterminant as to whether this is a esophageal diverticulum or perforation. Since the patient is so stable hemodynamically and is completely asymptomatic, decision was made to advance diet after speaking to GI. Perforation would be highly unlikely. Patient has been tolerating a p.o. diet Continue Zosyn IV #MAK Resolved with IV fluid Monitor BMP No obstructive pathology noted on CT #Atrial Flutter Currently NSR Hold Eliquis for now #Bi Polar I Continue home Lamictal and trazodone #GERD Omeprazole #HTN Hold lisinopril Continue amlodipine, atenolol #HLD pravastatin Admission and Anticipated Discharge Date Admission Date: July 02, 2023 Subjective patient feels well. Tolerating full liquid diet. Review of Systems Review of Systems: All systems reviewed & are unremarkable except as noted in Subjective Physical Exam Physical Exam: General: Awake, conversant Heart: S1, S2/regular rate and rhythm, no murmur rubs or gallops Lungs: Clear to auscultation bilaterally. Normal effort Abdomen: Soft/nontender/nondistended. No hepatosplenomegaly Extremities: No clubbing/cyanosis. No edema Behavior: Appropriate, cooperative Results & Data Results & Data Vital Signs (Past 12 Hours) Vital Signs Temp Pulse Resp BP Pulse Ox O2 Del Method 07/07/23 14:17 36.3 C L 73 16 158/89 H 97 Room Air 07/07/23 08:11 36.8 C 78 16 149/88 H 98 Room Air Laboratory Results Abnormal lab results 07/07/23 07/07/23 Range/Units 06:42 06:42 RBC 4.04 L (4.70-6.10) M/uL Hgb 10.8 L (14.0-18.0) g/dl Hct 33.4 L (42.0-52.0) % RDW Std Deviation 46.8 H (36.4-46.3) fL RDW Coeff of Joel 15.5 H (11.5-14.5) % BUN/Creatinine Ratio 8.6 L (10-20) Glucose 104 H (70-99(Fasting)) mg/dl PG Care Time/CCT Total # of Minutes Spent Total Time Spent with Patient: Total time spent is greater than 50% in coordination of care (as documented) at patient's floor/unit and/or counseling patient: Coding Level of Care Code 62199 SUB INP/OBS CARE 2/35MIN Diagnoses Abdominal pain R10.9 Enlarged lymph nodes R59.9 MAK (acute kidney injury) N17.9 Bipolar disorder F31.9 GERD (gastroesophageal reflux disease) K21.9 Hypertension I10 HLD (hyperlipidemia) E78.5 Atrial flutter I48.92
[2023-07-07] MEDS: PRAVASTATIN SOD 10 MG TAB PO SCH (20:39)
[2023-07-07] MEDS: traZODone HCL 100 MG TAB PO SCH (20:39)
[2023-07-07] MEDS: lamoTRIgine 100 MG TAB PO SCH (20:39)
[2023-07-08] MEDS: PIPERACILLIN/TAZOBACTAM 4.5 GM in DEXTROSE 5% MINI-B 100 ML IV SCH ×3 (01:40→17:01)
[2023-07-08] MEDS: ACETAMINOPHEN 325 MG TAB PO PRN ×4 (05:50→20:48)
[2023-07-08 07:47] LABS: Hematocrit (blood only) 34.7 % (42.0-52.0); Hemoglobin 11.2 g/dl (14.0-18.0); Mean Corpuscular Hemoglobin 26.5 pg (25.0-34.0); Mean Corpuscular Hgb Conc 32.3 g/dL (32.0-36.0); Mean Corpuscular Volume 82.2 fL (80.0-100.0); Mean Platelet Volume 11.6 fL (9.4-12.4); Platelet Count 289 K/uL (130-400); RDW Coefficient of Variation 15.4 % (11.5-14.5); RDW Standard Deviation 45.9 fL (36.4-46.3); Red Blood Count 4.22 M/uL (4.70-6.10); White Blood Count 8.75 K/ul (4.8-10.8)
[2023-07-08 08:08] LABS: BUN Creatinine Ratio 9.1 (10-20); Calcium 9.7 mg/dl (8.6-10.3); Creatinine Clr Calc Pharmacy 60.5 ml/min; Est GFR (African American) 59.1 ml/min; Potassium 3.8 mmol/L (3.5-5.1)
[2023-07-08] MEDS: PANTOprazole 40 MG TAB PO SCH (09:05)
[2023-07-08] MEDS: ATENOLOL 25 MG TABLET PO SCH (09:05)
[2023-07-08] MEDS: amLODIPine BESYLATE 5 MG TAB PO SCH (09:05)
--- NOTE | 2023-07-08 15:52 | Hospitalist Progress Note ---
Date of Service July 08, 2023 Assessment & Plan (1) Abdominal pain: (2) Enlarged lymph nodes: (3) MAK (acute kidney injury): (4) Bipolar disorder: (5) GERD (gastroesophageal reflux disease): (6) Hypertension: (7) HLD (hyperlipidemia): (8) Atrial flutter: Plan #Abdominal Pain HIDA unremarkable Stool Biofire negative could be secondary to mass effect General surgery recommended no surgical intervention for gallbladder #Enlarged Lymph Nodes Possible malignant primary neoplasm of unknown site with possible retroperitoneal and lymphatic metastases Was supposed to have PET, never completed after last admission MRI thoracic and lumbar spine showed right periaortic lymphadenopathy and right prevertebral mass. Patient had biopsy from left side of his neck done by IR 07/05. Awaiting pathology results. if biopsies unrevealing, will proceed to EGD this week # question of pneumomediastinum IR had recommended a CT chest CT chest showed findings suggestive of mediastinum from a ? Perforation versus a diverticulum Now that his creatinine has stabilized, CT chest with contrast was done today 07/05. CT study was indeterminant as to whether this is a esophageal diverticulum or perforation. Since the patient is so stable hemodynamically and is completely asymptomatic, decision was made to advance diet after speaking to GI. Perforation would be highly unlikely. Patient has been tolerating a p.o. diet Continue Zosyn IV #MAK Resolved with IV fluid, but slowly trending up again Resume IV fluids Monitor BMP No obstructive pathology noted on CT #Atrial Flutter Currently NSR Hold Eliquis for now #Bi Polar I Continue home Lamictal and trazodone #GERD Omeprazole #HTN Hold lisinopril Continue amlodipine, atenolol #HLD pravastatin Admission and Anticipated Discharge Date Admission Date: July 02, 2023 Subjective patient is tolerating p.o. diet. Denies chest pain or shortness of breath. Denies abdominal pain. Review of Systems Review of Systems: All systems reviewed & are unremarkable except as noted in Subjective Physical Exam Physical Exam: General: Awake, conversant Heart: S1, S2/regular rate and rhythm, no murmur rubs or gallops Lungs: Clear to auscultation bilaterally. Normal effort Abdomen: Soft/nontender/nondistended. No hepatosplenomegaly Extremities: No clubbing/cyanosis. No edema Behavior: Appropriate, cooperative Results & Data Results & Data Vital Signs (Past 12 Hours) Vital Signs Temp Pulse Resp BP Pulse Ox O2 Del Method 07/08/23 14:44 36.5 C 65 16 148/78 H 98 Room Air 07/08/23 07:18 36.4 C L 64 16 150/80 H 99 Room Air Laboratory Results Abnormal lab results 07/08/23 07/08/23 Range/Units 07:20 07:20 RBC 4.22 L (4.70-6.10) M/uL Hgb 11.2 L (14.0-18.0) g/dl Hct 34.7 L (42.0-52.0) % RDW Coeff of Joel 15.4 H (11.5-14.5) % Creatinine 1.43 H (0.6-1.4) mg/dl BUN/Creatinine Ratio 9.1 L (10-20) Glucose 100 H (70-99(Fasting)) mg/dl PG Care Time/CCT Total # of Minutes Spent Total Time Spent with Patient: Total time spent is greater than 50% in coordination of care (as documented) at patient's floor/unit and/or counseling patient: Coding Level of Care Code 54421 SUB INP/OBS CARE 2/35MIN Diagnoses Abdominal pain R10.9 Enlarged lymph nodes R59.9 MAK (acute kidney injury) N17.9 Bipolar disorder F31.9 GERD (gastroesophageal reflux disease) K21.9 Hypertension I10 HLD (hyperlipidemia) E78.5 Atrial flutter I48.92
[2023-07-08] MEDS: SODIUM CHLORIDE 0.9% 1,000 ML IV SCH (17:01)
[2023-07-08] MEDS: PRAVASTATIN SOD 10 MG TAB PO SCH (20:48)
[2023-07-08] MEDS: lamoTRIgine 100 MG TAB PO SCH (20:48)
[2023-07-08] MEDS: traZODone HCL 100 MG TAB PO SCH (20:48)
[2023-07-08] MEDS ORDERED: Nursing to Pharmacy Communication SCH (21:00)
[2023-07-09] MEDS: PIPERACILLIN/TAZOBACTAM 4.5 GM in DEXTROSE 5% MINI-B 100 ML IV SCH ×3 (01:10→17:21)
[2023-07-09] MEDS: SODIUM CHLORIDE 0.9% 1,000 ML IV SCH ×3 (01:10→16:13)
[2023-07-09] MEDS: ACETAMINOPHEN 325 MG TAB PO PRN ×3 (04:50→21:25)
[2023-07-09 08:01] LABS: Hematocrit (blood only) 33.6 % (42.0-52.0); Hemoglobin 10.8 g/dl (14.0-18.0); Mean Corpuscular Hemoglobin 26.7 pg (25.0-34.0); Mean Corpuscular Hgb Conc 32.1 g/dL (32.0-36.0); Mean Platelet Volume 11.9 fL (9.4-12.4); Platelet Count 291 K/uL (130-400); RDW Coefficient of Variation 15.4 % (11.5-14.5); RDW Standard Deviation 46.2 fL (36.4-46.3); Red Blood Count 4.05 M/uL (4.70-6.10); White Blood Count 6.95 K/ul (4.8-10.8)
[2023-07-09 08:13] LABS: BUN Creatinine Ratio 10.1 (10-20); Calcium 9.4 mg/dl (8.6-10.3); Est GFR (Non-African American) 57.8 ml/min
[2023-07-09] MEDS: amLODIPine BESYLATE 5 MG TAB PO SCH (08:25)
[2023-07-09] MEDS: PANTOprazole 40 MG TAB PO SCH (08:25)
[2023-07-09] MEDS: ATENOLOL 25 MG TABLET PO SCH (08:25)
[2023-07-09] MEDS: traZODone HCL 100 MG TAB PO SCH (21:25)
[2023-07-09] MEDS: PRAVASTATIN SOD 10 MG TAB PO SCH (21:25)
[2023-07-09] MEDS: lamoTRIgine 100 MG TAB PO SCH (21:25)
--- NOTE | 2023-07-09 23:27 | Hospitalist Progress Note ---
Date of Service July 09, 2023 Assessment & Plan (1) Abdominal pain: (2) Enlarged lymph nodes: (3) MAK (acute kidney injury): (4) Bipolar disorder: (5) GERD (gastroesophageal reflux disease): (6) Hypertension: (7) HLD (hyperlipidemia): (8) Atrial flutter: Plan #Abdominal Pain HIDA unremarkable Stool Biofire negative could be secondary to mass effect General surgery recommended no surgical intervention for gallbladder Patient continues to have pain, will changed tylenol to QID scheduled, will place NSAIDs order. will monitor #Enlarged Lymph Nodes Possible malignant primary neoplasm of unknown site with possible retroperi toneal and lymphatic metastases Was supposed to have PET, never completed after last admission MRI thoracic and lumbar spine showed right periaortic lymphadenopathy and right prevertebral mass. Patient had biopsy from left side of his neck done by IR 07/05. Awaiting pathology results. if biopsies unrevealing, will proceed to EGD this week # question of pneumomediastinum IR had recommended a CT chest CT chest showed findings suggestive of mediastinum from a ? Perforation versus a diverticulum Now that his creatinine has stabilized, CT chest with contrast was done today 07/05. CT study was indeterminant as to whether this is a esophageal diverticulum or perforation. Since the patient is so stable hemodynamically and is completely asymptomatic, d ecision was made to advance diet after speaking to GI. Perforation would be highly unlikely. Patient has been tolerating a p.o. diet Continue Zosyn IV #MAK Resolved with IV fluid, but slowly trending up again Resume IV fluids Monitor BMP No obstructive pathology noted on CT #Atrial Flutter Currently NSR Hold Eliquis for now #Bi Polar I Continue home Lamictal and trazodone #GERD Omeprazole #HTN Hold lisinopril Continue amlodipine, atenolol #HLD pravastatin Admission and Anticipated Discharge Date Admission Date: July 02, 2023 Subjective Patient reports no new symptoms. Review of Systems Review of Systems: All systems reviewed & are unremarkable except as noted in HPI & below Physical Exam Physical Exam: General: Awake, conversant Heart: S1, S2/regular rate and rhythm, no murmur rubs or gallops Lungs: Clear to auscultation bilaterally. Normal effort Abdomen: Soft/nontender/nondistended. No hepatosplenomegaly Extremities: No clubbing/cyanosis. No edema Behavior: Appropriate, cooperative Results & Data Results & Data Vital Signs (Past 12 Hours) Vital Signs Temp Pulse Resp BP Pulse Ox O2 Del Method 07/09/23 20:40 36.9 C 96 H 18 172/86 H 100 Room Air 07/09/23 15:39 36.7 C 73 16 145/84 H 98 Room Air PG Care Time/CCT Total # of Minutes Spent Total Time Spent with Patient: Total time spent is greater than 50% in coordination of care (as documented) at patient's floor/unit and/or counseling patient: Coding Level of Care Code 62328 SUB INP/OBS CARE 2/35MIN Diagnoses Abdominal pain R10.9 Enlarged lymph nodes R59.9 MKA (acute kidney injury) N17.9 Bipolar disorder F31.9 GERD (gastroesophageal reflux disease) K21.9 Hypertension I10 HLD (hyperlipidemia) E78.5 Atrial flutter I48.92
[2023-07-10] MEDS: PIPERACILLIN/TAZOBACTAM 4.5 GM in DEXTROSE 5% MINI-B 100 ML IV SCH ×3 (01:00→18:17)
[2023-07-10] MEDS: SODIUM CHLORIDE 0.9% 1,000 ML IV SCH ×3 (01:00→17:22)
[2023-07-10] MEDS ORDERED: HYDROmorphone INJ 0.5 MG/0.5 ML SYR IV STA (04:53)
[2023-07-10 07:35] LABS: Albumin Globulin Ratio 1.3 (0.9-2); Albumin Level 3.9 gm/dl (3.4-5.0); BUN Creatinine Ratio 8.2 (10-20); Bilirubin,Total 0.7 mg/dl (0.2-1.0); Calcium 9.3 mg/dl (8.6-10.3); Creatinine Clr Calc Pharmacy 70.9 ml/min; Est GFR (African American) 71.7 ml/min; Est GFR (Non-African American) 61.8 ml/min; Globulin 3.1 gm/dl (2.5-4.0); Potassium 4.2 mmol/L (3.5-5.1)
[2023-07-10 07:38] LABS: Hematocrit (blood only) 33.4 % (42.0-52.0); Hemoglobin 10.9 g/dl (14.0-18.0); Mean Corpuscular Hemoglobin 26.8 pg (25.0-34.0); Mean Corpuscular Hgb Conc 32.6 g/dL (32.0-36.0); Mean Corpuscular Volume 82.3 fL (80.0-100.0); Mean Platelet Volume 11.7 fL (9.4-12.4); Platelet Count 271 K/uL (130-400); RDW Coefficient of Variation 15.5 % (11.5-14.5); RDW Standard Deviation 46.8 fL (36.4-46.3); Red Blood Count 4.06 M/uL (4.70-6.10); White Blood Count 6.16 K/ul (4.8-10.8)
[2023-07-10] MEDS: ACETAMINOPHEN 325 MG TAB PO SCH ×4 (10:09→21:20)
[2023-07-10] MEDS: amLODIPine BESYLATE 5 MG TAB PO SCH (10:10)
[2023-07-10] MEDS: PANTOprazole 40 MG TAB PO SCH (10:10)
[2023-07-10] MEDS: NAPROXEN 250 MG TAB PO SCH ×2 (10:11→21:20)
[2023-07-10] MEDS: ATENOLOL 25 MG TABLET PO SCH (10:11)
--- NOTE | 2023-07-10 16:58 | Oncology Consultation ---
Date of Consultation July 10, 2023 Assessment & Plan (1) Abdominal lymphadenopathy: (2) Neuroendocrine cancer: Plan I went over the results of the recently obtained CT scans which included a CT scan of the chest, CT of the abdomen pelvis. I also went over the results of the biopsy which revealed neuroendocrine cancer. At this time my first recommendation would be more extensive tissue specimen which can be obtained by an excisional biopsy of the lymph node from the neck. That can help us clarify whether we are actually dealing with metastatic high-grade neuroendocrine cancer versus small cell carcinoma. I would also request labs such as 5- hydroxyindoleacetic acid and serum chromogranin level. 5 HIAA can be obtained from a 24-hour urine specimen. The patient will also need a PET CT scan. If we determine he has metastatic small cell carcinoma given his extensive smoking history in that case he will also need a screening MRI of the brain to rule out intracranial metastatic disease. Either way is we are probably looking at palliative systemic chemotherapy given the high's Ki-67 and aggressive nature of this disease. However once we differentiate whether we are dealing with high- grade neuroendocrine tumor and carcinoid syndrome we can also utilize therapy s uch as octreotide to control his chronic diarrhea. Recommendations: 24-hour urine 5-HIAA, serum chromogranin level Excisional biopsy of the enlarged neck lymph node for more thourough tissue diagnosis PET CT scan At the end of the visit all of the patient's questions were answered to his satisfaction. Medical oncology will continue to follow the patient along and make appropriate recommendations. A total of 60 minutes were spent in review of prior records and counseling and coordination of care for this patient. History of Present Illness Reason for Consultation: Neuroendocrine cancer Requesting Physician: David López Attending Physician: David López History of Present Illness The patient is a very pleasant 63-year-old gentleman who has been complaining of chronic diarrhea for the last 6 months along with some GI symptoms. He has had occasional flushing and palpitations as well. He is a prisoner in the local detention, will be out in the next 10 years. His symptoms have been going on for the last 4 months. He had an admission to the hospital for similar symptoms back in [place].even after discharge from the hospital, his diarrhea and abdominal pain did not improve and he continued to have similar symptoms. He is also complaining of abdominal cramping. While during this admission he had a CT of the abdomen pelvis performed on 07/02/2023 which revealed RIGHT paravertebral mass measures 4.2 x 2.1 cm. . This may represent an enlarged lymph node or paraganglioma. Thoracic spine MRI with contrast recommended. He also had a CT scan of the chest which revealed bulky lymphadenopathy in the left lower neck, mediastinum, paravertebral region, and upper abdomen. Neoplasm is the diagnosis of exclusion, and the appearance favors lymphoma. During this time he continues to have the GI symptoms including diarrhea and crampy abdominal pain. 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 There was no clear- cut diagnosis whether this was small cell carcinoma however the Ki-67 was more than 50%. The patient has an extensive smoking history, smoked for about 40 years, 1 pack/day however quit smoking about 5 to 8 years ago. He has lost weight recently. He denies any fever or chills. Allergies Allergy/AdvReac Type Severity Reaction Status Date / Time No Known Allergies Allergy Verified 07/02/23 20:13 Home Medications Medication Instructions Recorded Confirmed Type diclofenac sodium 50 mg 50 mg PO BID PRN Pain 03/15/23 07/02/23 History tablet,delayed release lamotrigine 100 mg tablet 100 mg PO HS 03/15/23 07/02/23 History (Lamictal) lisinopril 20 mg tablet 20 mg PO DAILY 03/15/23 07/02/23 History omeprazole 20 mg tablet,delayed 40 mg PO DAILY 03/15/23 07/02/23 History release pravastatin 10 mg tablet 10 mg PO HS 03/15/23 07/02/23 History trazodone 100 mg tablet 200 mg PO HS 03/15/23 07/02/23 History amlodipine 10 mg tablet 10 mg PO DAILY #30 tabs 03/18/23 07/02/23 Rx apixaban 5 mg tablet (Eliquis) 5 mg PO BID #60 tabs 03/18/23 07/02/23 Rx atenolol 25 mg tablet 25 mg PO QAM #30 tabs 03/18/23 07/02/23 Rx Patient History Medical History Atrial flutter Bipolar disorder GERD (gastroesophageal reflux disease) reports prior UGIB s/p EGD showing ulcers HLD (hyperlipidemia) Hypertension Mitral regurgitation Surgical History History of back surgery History of knee surgery Family History Mother Cancer Social History Smoking Status: Former smoker Hx Alcohol Use: No Hx Substance Use: No Preferred Language: Azeri Communication Ability: Effective Metal Sorter Required: No Beliefs That Will Affect Care: None Current Living Situation: Other Current Living Situation Comment: detention Feels Safe at Home: Yes Assistive Devices: None Review of Systems Review of Systems: All systems reviewed & are unremarkable except as noted in HPI & below The patient is complaining of chronic diarrhea, occasional flushing, abdominal pain, weight loss, decreased appetite. Reports no fever, cough, sputum production Physical Exam Constitutional: well developed Eyes: PERRL, conjunctivae normal, anicteric sclerae ENMT: external ear and nose normal, oropharynx normal Neck: trachea midline, no thyromegaly Respiratory: normal respiratory effort, lungs clear to auscultation Cardiovascular: RRR, no murmur, no edema Chest (Breasts): normal inspection/palpation of breasts Gastrointestinal (Abdomen): normal bowel sounds, soft, nontender, no hepatosplenomegaly Musculoskeletal: no cyanosis or clubbing, extremities motor strength 5/5 Skin: no rashes, warm and dry Results & Data Vital Signs (Past 12 Hours) Vital Signs Temp Pulse Resp BP Pulse Ox O2 Del Method 07/10/23 15:48 36.7 C 72 18 140/80 97 Room Air 07/10/23 10:18 73 16 165/88 H 99 Room Air 07/10/23 05:00 155/78 H
--- NOTE | 2023-07-10 19:27 | Surgery Consultation ---
Date of Consultation July 10, 2023 Assessment & Plan (1) Neuroendocrine cancer: The patient is currently admitted on the hospitalist service. As noted the patient has had a fine-needle aspiration which is concerning for neuroendocrine cancer. The patient has been seen by oncology and with the current pathology specimen they have they could not ascertain if patient has a neuroendocrine cancer versus a small cell cancer. They very therefore requested an excisional lymph node biopsy for further tissue to aid in formalizing patient's diagnosis and tailoring his treatment plan. Due to the request of oncology we have placed the patient on the operating room schedule tentatively for 07/11/[address] Loza for an excisional lymph node biopsy of the left neck. We will make the patient n.p.o. after midnight. Additional recommendations were forthcoming based on operative findings and his clinical course as it unfolds Supervising Physician Co-Signing Physician Notes Patient discussed with MUNA Negron overnight, labs and imaging reviewed, agree with above. Plan for cervical lymph node biopsy. Please see today's progress note for further details History of Present Illness Attending Physician: David López History of Present Illness This is a 63-year-old male who was admitted to [facility] on 07/02/2023. The patient presented to the emergency department [facility] with diarrhea and abdominal pain. He also reports fever, night sweats, and an unspecified weight loss that he describes as "significant." The patient does note previous history of smokinghe estimates that he smoked approximately 1/2 to 1 pack cigarettes per day for approximately 30 to 40 years. He notes that he has a family history of throat cancer (he notes his mother had throat cancer but she was also a heavy smoker). The patient had a previous admission to the hospital from 03/15/2023 through 03/18/2023. During this admission the patient presented with abdominal pain and he underwent an evaluation for cholecystitis and ultimately had a negative HIDA scan. It was felt that the patient may have had a viral gastroenteritis. The patient was noted to have enlarged portacaval and intra-abdominal adenopathy and it was recommended the patient undergo a outpatient CT/PET scan but this had not yet been completed. During this admission the patient had imaging which will be described below. Due to patient's abdominal pain general surgery was consulted for consideration of cholecystectomy but he again was noted to have a normal HIDA scan and therefore cholecystectomy was not recommended. The patient was also noted to have bulky lymphadenopathy and concern for paravertebral mass. The patient underwent a fine-needle aspiration of the a lymph node on the left side of his neck on 07/05/2023. 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 The patient was seen by hematology oncology and was recommended the patient undergo an excisional biopsy of this lymph node to obtai n more tissue to help tailor the patient's treatment regimen. It is for this reason general surgery has been consulted. Available imaging that the patient had was reviewed. The patient did have an abdominal ultrasound on 07/02/2023 that showed patient had cholelithiasis and sludge within the gallbladder. The gallbladder was noted to be mildly distended with borderline gallbladder wall thickening. Cholecystitis could not be excluded on this study. On the same date the patient had a CT scan of the abdomen and pelvis. On this study the patient was noted to have a right paravertebral mass measuring approximately 4.2 x 2.1 cm[address] is [address] evidence of cholecystitis. There are periportal and perigastric lymph nodes noted on the study. Due to the gallbladder findings a HIDA scan was performed on 07/03/2023 which was noted to be essentially normal and negative for cholecystitis. A lumbar spine MRI was pursued on 07/03/2023 and this showed patient had findings concerning for pathologic lymphadenopathy in the right periaortic and retroperitoneal space. No other acute findings in the lumbar spine were noted. A thoracic spine MRI was performed on 07/03/2023 which showed the patient had a soft tissue mass in the right prevertebral soft tissue concerning for a neoplasm. A CT scan of the chest was performed on 07/04/2023. This showed the patient had extensive adenopathy in the lower neck chest and and visualized portions of the abdomen suspicious for neoplastic disease. Patient was also noted to have a 2.3 cm circumscribed nodule in the left lower lobe. Patient was also noted to have concern for an intraluminal polyp or mass within the esophagus on this study as well as a punctate focus of gas adjacent to the left mainstem bronchus and esophagus which is felt to potentially represent an esophageal diverticulum, adjacent venous gas or possibly an esophageal perforation. A repeat CT scan of the chest was performed on 07/05/2023 where patient was again noted to have bulky lymphadenopathy in the left lower neck, mediastinum, and paravertebral region as well as the upper abdomen. In addition the mid to distal esophagus was noted to have irregular wall thickening and lobulation with a potential infiltrative mass. This was felt to either represent lymphomatous involvement or an esophageal neoplasm. There remained a persistent small focus of gas along the left aspect of the esophagus as described above. Most recent labs the patient had were from today where his white blood cell count and platelet count were normal. His hemoglobin and hematocrit are 10.9 and 33.4. Chemistry profile showed sodium and potassium along with his BUN and creatinine were normal. At the time of my visit with the patient is resting comfortably in bed and he was in no distress. Allergies Allergy/AdvReac Type Severity Reaction Status Date / Time No Known Allergies Allergy Verified 07/02/23 20:13 Home Medications Medication Instructions Recorded Confirmed Type diclofenac sodium 50 mg 50 mg PO BID PRN Pain 03/15/23 07/02/23 History tablet,delayed release lamotrigine 100 mg tablet 100 mg PO HS 03/15/23 07/02/23 History (Lamictal) lisinopril 20 mg tablet 20 mg PO DAILY 03/15/23 07/02/23 History omeprazole 20 mg tablet,delayed 40 mg PO DAILY 03/15/23 07/02/23 History release pravastatin 10 mg tablet 10 mg PO HS 03/15/23 07/02/23 History trazodone 100 mg tablet 200 mg PO HS 03/15/23 07/02/23 History amlodipine 10 mg tablet 10 mg PO DAILY #30 tabs 03/18/23 07/02/23 Rx apixaban 5 mg tablet (Eliquis) 5 mg PO BID #60 tabs 03/18/23 07/02/23 Rx atenolol 25 mg tablet 25 mg PO QAM #30 tabs 03/18/23 07/02/23 Rx Patient History Medical History Atrial flutter Bipolar disorder GERD (gastroesophageal reflux disease) reports prior UGIB s/p EGD showing ulcers HLD (hyperlipidemia) Hypertension Mitral regurgitation Surgical History History of back surgery History of knee surgery Family History Mother Cancer Social History Smoking Status: Former smoker Hx Alcohol Use: No Hx Substance Use: No Preferred Language: Frisian Communication Ability: Effective [employer]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 Beliefs That Will Affect Care: None Current Living Situation: Other Current Living Situation Comment: [facility] Feels Safe at Home: Yes Assistive Devices: None Review of Systems Constitutional: no fever and no chills Ear, Nose, Mouth, Throat: no hearing loss Respiratory: no cough Cardiovascular: no chest pain Gastrointestinal: + abdominal pain and + diarrhea/loose stools Genitourinary: no dysuria Musculoskeletal: no back pain Integumentary: no rash Neurologic: no localized weakness Physical Exam Constitutional: WD/WN, vitals as above Eyes: no conjunctival abnormality ENMT: Ears: no hearing impairment Mouth: no oropharynx abnormality Neck: trachea midline Patient is noted to have some palpable adenopathy in the left cervical region. Respiratory: normal respiratory effort; no respiratory distress and no labored breathing Cardiovascular: Rate/Rhythm: regular rate and regular rhythm Gastrointestinal (Abdomen): Abdomen is soft and nonrigid. It is nondistended. There is no pain with palpation. Musculoskeletal: No lower extremity edema or calf tenderness Skin: no rashes Neurologic: moves all extremities Psychiatric: A+Ox3, euthymic affect Lymphatic: I did not appreciate any axillary adenopathy bilaterally. Please see above description for neck adenopathy description. I did not appreciate any epitrochlear adenopathy. Results & Data Vital Signs (Past 12 Hours) Vital Signs Temp Pulse Resp BP Pulse Ox O2 Del Method 07/10/23 15:48 36.7 C 72 18 140/80 97 Room Air 07/10/23 10:18 73 16 165/88 H 99 Room Air PG Care Time/CCT Total # of Minutes Spent Total Time Spent with Patient: Total time spent is greater than 50% in coordination of care (as documented) at patient's floor/unit and/or counseling patient: Coding Level of Care Code 02858 INT INP/OBS CARE 3/75MIN Diagnoses Neuroendocrine cancer C7A.8
[2023-07-10] MEDS: PRAVASTATIN SOD 10 MG TAB PO SCH (21:20)
[2023-07-10] MEDS: traZODone HCL 100 MG TAB PO SCH (21:20)
[2023-07-10] MEDS: lamoTRIgine 100 MG TAB PO SCH (21:20)
--- NOTE | 2023-07-10 21:39 | Hospitalist Progress Note ---
Date of Service July 10, 2023 Assessment & Plan (1) Abdominal pain: (2) Enlarged lymph nodes: (3) MAK (acute kidney injury): (4) Bipolar disorder: (5) GERD (gastroesophageal reflux disease): (6) Hypertension: (7) HLD (hyperlipidemia): (8) Atrial flutter: Plan #Abdominal Pain HIDA unremarkable Stool Biofire negative could be secondary to mass effect General surgery recommended no surgical intervention for gallbladder Patient continues to have pain, will changed tylenol to QID scheduled, Now on NSAIDs Pain appears better controlled. #Enlarged Lymph Nodes Possible malignant primary neoplasm of unknown site with possible retroperitoneal and lymphatic metastases Was supposed to have PET, never completed after last admission MRI thoracic and lumbar spine showed right periaortic lymphadenopathy and right prevertebral mass. Patient had biopsy from left side of his neck done by IR 07/05. Metastatic carcinoma with neuroendocrine differentiation is seen. - Please consider an open biopsy of this lymph node to define histologic architecture which may be very helpful in arriving at a more specific diagnoses. Consulted gen surgery. Consulted oncology: will need PET scan and 5- HIAA testing. Trying to get as much work up prior to discharge given his aggressive malignancy. # question of pneumomediastinum IR had recommended a CT chest CT chest showed findings suggestive of mediastinum from a ? Perforation versus a diverticulum Now that his creatinine has stabilized, CT chest with contrast was done today 07/05. CT study was indeterminant as to whether this is a esophageal diverticulum or perforation. Since the patient is so stable hemodynamically and is completely asymptomatic, decision was made to advance diet after speaking to GI. Perforation would be highly unlikely. Patient has been tolerating a p.o. diet Continue Zosyn IV can consider stopping on 07/11 #MAK Resolved with IV fluid, but slowly trending up again Resume IV fluids Monitor BMP No obstructive pathology noted on CT #Atrial Flutter Currently NSR Hold Eliquis for now #Bi Polar I Continue home Lamictal and trazodone #GERD Omeprazole #HTN Hold lisinopril Continue amlodipine, atenolol #HLD pravastatin Admission and Anticipated Discharge Date Admission Date: July 02, 2023 Subjective Patient reports no new symptoms. Review of Systems Review of Systems: All systems reviewed & are unremarkable except as noted in HPI & below Physical Exam Physical Exam: General: Awake, conversant Heart: S1, S2/regular rate and rhythm, no murmur rubs or gallops Lungs: Clear to auscultation bilaterally. Normal effort Abdomen: Soft/nontender/nondistended. No hepatosplenomegaly Extremities: No clubbing/cyanosis. No edema Behavior: Appropriate, cooperative Results & Data Results & Data Vital Signs (Past 12 Hours) Vital Signs Temp Pulse Resp BP BP Pulse Ox O2 Del Method 07/10/23 21:21 36.3 C L 70 16 156/85 H 98 Room Air 07/10/23 15:48 36.7 C 72 18 140/80 97 Room Air 07/10/23 10:18 73 16 165/88 H 99 Room Air PG Care Time/CCT Total # of Minutes Spent Total Time Spent with Patient: Total time spent is greater than 50% in coordination of care (as documented) at patient's floor/unit and/or counseling patient: Coding Level of Care Code 83534 SUB INP/OBS CARE 2/35MIN Diagnoses Abdominal pain R10.9 Enlarged lymph nodes R59.9 MAK (acute kidney injury) N17.9 Bipolar disorder F31.9 GERD (gastroesophageal reflux disease) K21.9 Hypertension I10 HLD (hyperlipidemia) E78.5 Atrial flutter I48.92
[2023-07-11] MEDS: PIPERACILLIN/TAZOBACTAM 4.5 GM in DEXTROSE 5% MINI-B 100 ML IV SCH ×3 (01:01→18:01)
[2023-07-11] MEDS: SODIUM CHLORIDE 0.9% 1,000 ML IV SCH ×3 (01:01→15:57)
[2023-07-11 07:36] LABS: Hematocrit (blood only) 30.6 % (42.0-52.0); Mean Corpuscular Hemoglobin 26.8 pg (25.0-34.0); Mean Corpuscular Hgb Conc 32.7 g/dL (32.0-36.0); Mean Platelet Volume 11.1 fL (9.4-12.4); Platelet Count 236 K/uL (130-400); RDW Coefficient of Variation 15.5 % (11.5-14.5); RDW Standard Deviation 46.2 fL (36.4-46.3); Red Blood Count 3.73 M/uL (4.70-6.10); White Blood Count 5.32 K/ul (4.8-10.8)
[2023-07-11] MEDS: ACETAMINOPHEN 325 MG TAB PO SCH ×4 (08:31→21:30)
[2023-07-11] MEDS: PANTOprazole 40 MG TAB PO SCH (08:32)
[2023-07-11] MEDS: amLODIPine BESYLATE 5 MG TAB PO SCH (08:32)
[2023-07-11] MEDS: ATENOLOL 25 MG TABLET PO SCH (08:32)
[2023-07-11] MEDS: NAPROXEN 250 MG TAB PO SCH ×2 (08:34→21:29)
--- NOTE | 2023-07-11 08:36 | Hospitalist Progress Note ---
Date of Service July 11, 2023 Assessment & Plan (1) Abdominal pain: Plan: Abdominal Pain, Possible malignant primary neoplasm of unknown site with possible retroperitoneal and lymphatic metastases MRI thoracic and lumbar spine showed right periaortic lymphadenopathy and right prevertebral mass. biopsy from left side of his neck done by IR 07/05. 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 [id number] status post excisional lymph node biopsy to define histologic architecture which may be very helpful in arriving at a more specific diagnoses. Consulted oncology: will need PET scan and 5- HIAA testing. Trying to get as much work up prior to discharge given his aggressive malignancy. HIDA unremarkable,General surgery recommended no surgical intervention for gallbladder Pain appears better controlled. tylenol to QID scheduled, Now on NSAIDs question of pneumomediastinum IR had recommended a CT chest CT chest showed findings suggestive of pneumo mediastinum from a ? Perforation versus a diverticulum CT chest with contrast was done 07/05 and was indeterminant as to whether this is a esophageal diverticulum or perforation. Since the patient is so stable hemodynamically and is completely asymptomatic, decision was made to advance diet after speaking to GI. Perforation would be highly unlikely. Patient has been tolerating a p.o. diet (2) MAK (acute kidney injury): Plan: obstructive uropathy not seen on imaging resolved (3) Atrial flutter: Plan: atenolol for rate control holding eliquis for biopsy chronic stable htn continue amlodipine, holding lisinopril for mak (4) Bipolar disorder: Plan: lamicatal and trazadone (5) GERD (gastroesophageal reflux disease): Admission and Anticipated Discharge Date Admission Date: July 02, 2023 Subjective patient in the operating room throughout the day. Did have a 3 x 4 cm lymph node removed deep to the sternocleidomastoid muscle of the left neck Physical Exam Physical Exam: patient was taken to the OR returned in a postoperative semisitting state appeared to be in no particular distress bandages in place at the operative site Results & Data Results & Data Vital Signs (Past 12 Hours) Vital Signs Temp Pulse Resp BP Pulse Ox O2 Del Method 07/11/23 06:39 97.7 F 70 17 149/80 H 98 Room Air 07/10/23 21:21 97.3 F L 70 16 156/85 H 98 Room Air PG Care Time/CCT Total # of Minutes Spent Total Time Spent with Patient: Total time spent is greater than 50% in coordination of care (as documented) at patient's floor/unit and/or counseling patient: Coding Level of Care Code 40516 SUB INP/OBS CARE 2/35MIN Diagnoses Abdominal pain R10.9 MAK (acute kidney injury) N17.9 Atrial flutter I48.92 Bipolar disorder F31.9 GERD (gastroesophageal reflux disease) K21.9
--- NOTE | 2023-07-11 09:43 | Hematology/Oncology Prog Note ---
Date of Service July 11, 2023 Assessment & Plan (1) Abdominal lymphadenopathy: Plan: FNA revealed neuroendocrine cancer. (2) Neuroendocrine cancer: Plan: We will wait for the results of the excisional biopsy to formulate a plan for the patient. At this time the diagnosis seems to be aggressive neuroendocrine cancer, the other consideration is small cell lung cancer. We will have a plan for palliative treatment once we have the results of this excisional biopsy. He may also need injections of octreotide to control the symptoms of chronic diarrhea if we confirm this is an aggressive neuroendocrine cancer with carcinoid syndrome. Plan Oncology will continue to follow closely. Patient will benefit from a PET CT scan. We will wait for the results of the final pathology.. Admission and Anticipated Discharge Date Admission Date: July 02, 2023 Subjective Patient reports no new symptoms. Currently n.p.o. in anticipation that he will undergo excisional lymph node biopsy of the neck. Review of Systems Review of Systems: All systems reviewed & are unremarkable except as noted in HPI & below The patient is complaining of chronic diarrhea, occasional flushing, abdominal pain, weight loss, decreased appetite. Reports no fever, cough, sputum production Physical Exam Constitutional: well developed Eyes: PERRL, conjunctivae normal, anicteric sclerae ENMT: external ear and nose normal, oropharynx normal Neck: trachea midline, no thyromegaly Respiratory: normal respiratory effort, lungs clear to auscultation Cardiovascular: RRR, no murmur, no edema Chest (Breasts): normal inspection/palpation of breasts Gastrointestinal (Abdomen): normal bowel sounds, soft, nontender, no hepatosplenomegaly Musculoskeletal: no cyanosis or clubbing, extremities motor strength 5/5 Skin: no rashes, warm and dry Results & Data Vital Signs (Past 12 Hours) Vital Signs Temp Pulse Resp BP Pulse Ox O2 Del Method 07/11/23 06:39 36.5 C 70 17 149/80 H 98 Room Air
--- NOTE | 2023-07-11 13:11 | Surgery Progress Note ---
Date of Service July 11, 2023 Assessment & Plan (1) Cervical lymphadenopathy: Plan: Cervical lymphadenopathy, oncology requesting more tissue for diagnosis plan for cervical lymph node biopsy risks discussed to include but not limited to bleeding, infection, damage to surrounding structures, seroma/hematoma, need for future or more extensive surgery, and risks of anesthesia return precautions given, call with questions or concerns Admission and Anticipated Discharge Date Admission Date: July 02, 2023 Subjective 63-year-old incarcerated male with recent coronary biopsy of cervical lymph node that showed metastatic disease, oncology was asked for excisional biopsy for further tissue. He has been n.p.o. since midnight. No prior neck surgery. He is on Eliquis but this has been held for several days Physical Exam Constitutional: WD/WN, vitals as above Respiratory: normal respiratory effort, lungs clear to auscultation Cardiovascular: RRR, no murmur, no edema Lymphatic: + cervical lymphadenopathy (Left greater than) Results & Data Vital Signs (Past 12 Hours) Vital Signs Temp Pulse Resp BP Pulse Ox O2 Del Method 07/11/23 06:39 36.5 C 70 17 149/80 H 98 Room Air Diagnostic Findings Personally viewed and interpreted the CT scan of the chest and shows some lower cervical lymphadenopathy as well as supraclavicular lymphadenopathy. This is more prominent on the left CT SCAN OF THE CHEST WITH IV CONTRAST CLINICAL HISTORY: Possible esophageal polyps or lesions. COMPARISON STUDY: Chest CT dated 07/04/2023. TECHNIQUE: Following the IV administration of 92 cc of Optiray 320, CT scan of t he thorax was performed from the thoracic inlet to the upper abdomen. Images are reviewed in the axial, sagittal, and coronal planes. IV contrast was administered without complication. A dose lowering technique was utilized adhering to the principles of ALARA. CT DOSE: 593.08 mGy.cm FINDINGS: Thyroid: Imaged portions of the thyroid gland are normal in size and attenuation. Thoracic aorta: The thoracic aorta is normal in caliber and demonstrates bovine variant arch anatomy. No dissection is seen. Pulmonary vasculature: The pulmonary trunk is normal in caliber. There are no filling defects identified in the central pulmonary vessels to indicate pulmonary embolus. Note that this examination was not protocoled for evaluation of the pulmonary arteries. Heart: The heart is enlarged and without pericardial effusion. Lungs and pleural spaces: There is mild emphysema. Scattered calcified granulomas are observed. A left lower lobe peribronchial node or nodule seen on image #181 measures 2.6 x 1.8 cm. There are trace pleural effusions with dependent atelectasis. No airspace consolidation is seen typical for pneumonia. Lower neck: There is bulky left supraclavicular lymphadenopathy. A node on image #10 measures 3.4 x 2.9 cm. Mediastinum: There is bulky mediastinal lymphadenopathy. A high prevascular node on image #64 measures 3.1 x 2.5 cm. A subcarinal node on image #112 measures 4.0 x 2.7 cm. A right paravertebral babs aggregate at T11 seen on image #185 measures 5.7 x 2.9 cm. These findings are unchanged from yesterday. Tara: Clear. Axillae: There is no axillary lymphadenopathy. Esophagus: The mid to distal esophagus shows significant irregular wall thickening with a lobulated appearance. This extends approximately 13.5 cm in craniocaudal length, from the level of the nancy to the gastroesophageal junction. An 11 mm intraluminal nodule or polypoid structure is seen in the upper esophagus on image #54. This is unchanged from yesterday and located at the level of T3-T4. A small focus of paraesophageal gas is again seen at the level of the left mainstem bronchus on image #92. This does not clearly communicate with the esophagus and is of indeterminate etiology and significance. There is mild infiltration identified around the esophagus at this level. Upper abdomen: There is bulky upper abdominal lymphadenopathy. A babs aggregate in the gastrohepatic space on image #224 measures approximately 8 x 4.5 cm. A right retroperitoneal babs aggregate on image #264 measures 6.3 x 4.0 cm. This partially encases the abdominal aorta. The encases and severely narrows the right renal artery as seen on image #247. The spleen is enlarged measuring over 13 cm in length. There are scattered subcentimeter hypervascular foci within liver, likely representing foci of shunt vascularity or flash filling hemangiomas. Skeletal structures: The skeletal structures are osteopenic. Degenerative change is noted in the shoulders and spine. No lytic or blastic bony lesions are seen. There are chronic/healed right-sided rib fractures. IMPRESSION: 1. Again seen is bulky lymphadenopathy in the left lower neck, mediastinum, paravertebral region, and upper abdomen. Neoplasm is the diagnosis of exclusion, and the appearance favors lymphoma. 2. A right retroperitoneal babs aggregate encases and severely narrows the proximal right renal artery. This is nearly occluded. 3. The mid to distal esophagus shows significant irregular wall thickening and lobulation consistent with an infiltrative mass. Given the above findings this likely represents lymphomatous involvement. An esophageal neoplasm is considered less likely but could potentially a similar. Correlation with endoscopy will be required. 4. An additional polypoid structure is seen within the lumen of the upper esophagus. This is unchanged from yesterday. 5. A small focus of gas along the left aspect of the esophagus is unchanged from yesterday. There is mild infiltration around the esophagus at this level . This remains indeterminant, and a small esophageal perforation or diverticulum could have this appearance. This can also be assessed with endoscopy. 6. Cardiomegaly and mild emphysema. 7. A 2.6 cm peribronchial lymph node versus lung nodule is again seen in the left lower lobe. A lymph node is favored given the above findings. 8. Trace pleural effusions. 9. There is no airspace consolidation typical for pneumonia. 10. Splenomegaly. 11. Additional findings as above. PG Care Time/CCT Total # of Minutes Spent Total Time Spent with Patient: Total time spent is greater than 50% in coordination of care (as documented) at patient's floor/unit and/or counseling patient: Coding Level of Care Code 22126 SUB INP/OBS CARE 2/35MIN Diagnoses Cervical lymphadenopathy R59.0
[2023-07-11] MEDS ORDERED: PROPOFOL IV EMULSION 10 MG/ML 20 ML VIAL IV ONE (13:16)
[2023-07-11] MEDS ORDERED: MIDAZOLAM HCL 1 MG/ML 2ML VIAL ONE (13:16)
[2023-07-11] MEDS ORDERED: ONDANSETRON INJ 2 MG/ML 2 ML VIAL ONE (13:16)
[2023-07-11] MEDS ORDERED: DEXAMETHASONE SOD INJ 4 MG/ML VIAL ONE (13:16)
[2023-07-11] MEDS ORDERED: LIDOCAINE 2% 2 ML VIAL/AMP(20MG/ML) INFIL ONE (13:16)
[2023-07-11] MEDS ORDERED: ROCURONIUM BROMIDE 10 MG/ML 5 ML VIAL IV ONE (13:16)
[2023-07-11] MEDS ORDERED: fentaNYL citrate PF 100 MCG/2 ML VIAL ONE (13:16)
[2023-07-11] MEDS ORDERED: ONDANSETRON INJ 2 MG/ML 2 ML VIAL IV PRN (13:35)
[2023-07-11] MEDS ORDERED: fentaNYL citrate PF 100 MCG/2 ML VIAL IV PRN (13:35)
[2023-07-11] MEDS ORDERED: ATROPINE SULFATE 0.1 MG/ML 10ML SYR IV PRN (13:35)
[2023-07-11] MEDS ORDERED: BUPIVACAINE 0.5 % 5 MG/1 ML MPF 30ML VIAL ONE (13:35)
[2023-07-11] MEDS ORDERED: ePHEDrine sulfate 50 MG/ML AMP IV PRN (13:35)
--- NOTE | 2023-07-11 13:37 | Anesthesiology Consultation ---
Date of Service July 11, 2023 Assessment & Plan Chart Review Chart Review: Acceptable Risk for Surgery and Patient NOT seen in Pre Admission Testing Consults Requested none ASA ASA3 Proposed Anesthesia Anesthesia Type: General Risk / Benefits Reviewed With: PT / POA / Parent / Guardian, Accepts Plan and Informed Consent Obtained History Surgery Operation Date: 07/04/23 16:30 Proposed Procedures p Esophagogastroduodenoscopy Dr. Lundberg - Denilson Lundberg MD Operation Date: 07/11/23 08:50 Proposed Procedures p Excisional Biopsy Left Neck - Anish Loza DO, FACS Height/Weight Height: 6 ft 6 in Weight: 83 kg Allergies Allergy/AdvReac Type Severity Reaction Status Date / Time No Known Allergies Allergy Verified 07/02/23 20:13 Medications Home Medications Medication Instructions Recorded Confirmed Last Taken diclofenac sodium 50 mg 50 mg PO BID PRN Pain 03/15/23 07/02/23 07/02/23 tablet,delayed release lamotrigine 100 mg tablet 100 mg PO HS 03/15/23 07/02/23 07/01/23 (Lamictal) lisinopril 20 mg tablet 20 mg PO DAILY 03/15/23 07/02/23 07/01/23 omeprazole 20 mg tablet,delayed 40 mg PO DAILY 03/15/23 07/02/23 07/02/23 release pravastatin 10 mg tablet 10 mg PO HS 03/15/23 07/02/23 07/01/23 trazodone 100 mg tablet 200 mg PO HS 03/15/23 07/02/23 07/01/23 amlodipine 10 mg tablet 10 mg PO DAILY #30 tabs 03/18/23 07/02/23 07/01/23 apixaban 5 mg tablet (Eliquis) 5 mg PO BID #60 tabs 03/18/23 07/02/23 07/02/23 atenolol 25 mg tablet 25 mg PO QAM #30 tabs 03/18/23 07/02/23 07/01/23 Active Medications Generic Name Dose Route Start Last Admin Trade Name Freq PRN Reason Stop Dose Admin Acetaminophen 650 mg 07/10/23 09:00 07/11/23 13:10 Acetaminophen 325 Mg Tab PO 08/09/23 08:59 Not Given QID ROSENDO Amlodipine Besylate 10 mg 07/03/23 09:00 07/11/23 08:32 Amlodipine Besylate 5 Mg Tab PO 08/02/23 08:59 10 mg DAILY ROSENDO Administration Atenolol 25 mg 07/03/23 09:00 07/11/23 08:32 Atenolol 25 Mg Tablet PO 08/02/23 08:59 25 mg QAM ROSENDO Administration Piperacillin Sod/Tazobactam 100 mls @ 25 mls/hr 07/04/23 18:00 07/11/23 10:19 Sod 4.5 gm/ Dextrose IV 07/14/23 17:59 25 mls/hr Q8H ROSENDO Administration Protocol Sodium Chloride 1,000 mls @ 125 mls/hr 07/08/23 16:00 07/11/23 04:59 Nss IV 08/07/23 15:59 125 mls/hr .Q8H ROSENDO Infusion Lamotrigine 100 mg 07/03/23 21:00 07/10/23 21:20 Lamotrigine 100 Mg Tab PO 08/02/23 20:59 100 mg HS ROSENDO Administration Naproxen 250 mg 07/10/23 09:00 07/11/23 08:34 Naproxen 250 Mg Tab PO 08/09/23 08:59 Not Given BID ROSENDO Pantoprazole Sodium 40 mg 07/03/23 09:00 07/11/23 08:32 Pantoprazole 40 Mg Tab PO 08/02/23 08:59 40 mg DAILY ROSENDO Administration Pravastatin Sodium 10 mg 07/03/23 21:00 07/10/23 21:20 Pravastatin Sod 10 Mg Tab PO 08/02/23 20:59 10 mg HS ROSENDO Administration Trazodone HCl 200 mg 07/03/23 21:00 07/10/23 21:20 Trazodone Hcl 100 Mg Tab PO 08/02/23 20:59 200 mg HS ROSENDO Administration NPO Date Last Intake of Fluids: 07/10/23 Time Last Intake of Fluids: 20:00 Date Last Intake of Solids: 07/10/23 Time Last Intake of Solids: 20:00 Past Medical History Medical History Atrial flutter Bipolar disorder Cervical lymphadenopathy GERD (gastroesophageal reflux disease) reports prior UGIB s/p EGD showing ulcers HLD (hyperlipidemia) Hypertension Mitral regurgitation Exercise / Class Metabolic Activity III < 4 Walking/Shop/Light housework Past Family History Family History Mother Cancer Past Surgical History Surgical History History of back surgery History of knee surgery Past Anesthesia History No Hx of Anesthesia Complications and No Family Hx of Anesthesia Complications History of PONV No Hx of PONV and No Hx of Motion Sickness Social History Smoking Status: Former smoker Hx Alcohol Use: No Hx Substance Use: No Review of Systems ROS Unobtainable: All systems reviewed & are unremarkable except as noted in HPI & below Physical Exam Vital Signs Last Vital Signs Temp 36.5 C 07/11/23 13:25 Pulse 68 07/11/23 13:25 Resp 18 07/11/23 13:25 BP 144/88 H 07/11/23 13:25 Pulse Ox 100 07/11/23 13:25 O2 Del Method Room Air 07/11/23 13:25 Constitutional no acute distress ENMT Mouth: + poor dentition (multiple missing and decaying teeth. Front tooth loose.); no TMJ abnormality Thyromental Distance: > or= 3.5 Finger Breadths Mallampati Class: I Mouth / Teeth: 1. Very loose Neck normal visual inspection and trachea midline; neck extension not limited Respiratory normal respiratory effort Auscultation: lungs clear to auscultation bilaterally Cardiovascular Rate/Rhythm: regular rate and regular rhythm Heart Sounds: no murmur Musculoskeletal Spine: normal cervical ROM Extremities: full ROM of extremities Neurologic moves all extremities Psychiatric Orientation: alert and oriented x 3 Testing Laboratory Results 07/11/23 07:14 07/10/23 06:50 Urine Color Yellow 07/03/23 06:04 Urine Appearance Clear (Clear) 07/03/23 06:04 Urine pH 6.5 (4.5-7.5) 07/03/23 06:04 Ur Specific Lamar 1.011 (1.000-1.030) 07/03/23 06:04 Urine Protein Negative (Negative) 07/03/23 06:04 Urine Glucose (UA) Negative (Negative) 07/03/23 06:04 Urine Ketones Trace (Negative) H 07/03/23 06:04 Urine Nitrite Negative (Negative) 07/03/23 06:04 Ur Leukocyte Esterase Negative (Negative) 07/03/23 06:04 Electrocardiogram Date: 07/10/23 a flutter with variabe AV block, marked ST abnormality, possible inferior subendocardial injury Echocardiogram Date: 03/16/23 EF: 55-60 Other Findings: + LVH
[2023-07-11] MEDS ORDERED: LACTATED RINGER'S 1,000 ML IV SCH (13:45)
--- OUTSIDE RECORDS SUMMARY | 2023-07-11 14:20 | External Medical Summary | Continuity of Care Document ---
Author Name Unknown Organization [facility] [address] [id number] Address [facility] [place], [place] [id number] Care Team Providers Care House Rn Name Role Phone Dirk Gonzalez Primary Care Physician [phone] [id number] Date(s): 02/20/23 - 02/20/23 [facility] [address] [id number] [address] Encounter Diagnosis Right shoulder pain(Discharge Diagnosis) - 02/20/23 Discharge Disposition: Home or Self Care Attending Physician: FREDDY Ward Dennis Referring Physician: MD Ade, Edgard Turcios Allergies, Adverse Reactions, Alerts No Known Allergies Medications Adult Aspirin Start: 12/21/22 13:35:00 EDT, 81 mg =, PO, Daily Start Date: 12/21/22 Status: Ordered atenolol Start: 12/21/22 13:35:00 EDT, 50 mg =, PO Start Date: 12/21/22 Status: Ordered diclofenac Start: 12/21/22 13:36:00 EDT, 50 mg =, PO Start Date: 12/21/22 Status: Ordered Icy Hot Extra Strength Start: 12/21/22 13:35:00 EDT Start Date: 12/21/22 Status: Ordered lisinopril Start: 12/21/22 13:36:00 EDT, 20 mg =, PO Start Date: 12/21/22 Status: Ordered pravastatin Start: 12/21/22 13:36:00 EDT, 10 mg =, PO Start Date: 12/21/22 Status: Ordered spironolactone Start: 12/21/22 13:36:00 EDT, 100 mg =, PO Start Date: 12/21/22 Status: Ordered Mental Status 02/20/23 Barriers to Learning one year None evide nt Mandatory Health Literacy Documentation Yes Health Literacy Communication Barriers N ever Primary Language Wallisian Problem List Condition Confirmation Course Effective Dates Status Health St atus Informant Right shoulder pain Confirmed Active Hepatitis C Confirmed Active Diagnosis Diagnosis Type Effective Dates Health Status Cl inical Service Informant Right shoulder pain Discharge Diagnosis 02/20/23 Procedures Procedure Date Related Diagnosis Body Site Status H/O Spinal surgery 1 Comp leted History of knee surgery 2 Completed 1back ruptured disk 2knee spur removed Vital Signs Most recent to oldest [Reference Range]: 1 Height 198.1 cm (02/20/23 10:14 AM) Patient Weight 97.5 kg (02/20/23 10:14 AM) Body Mass Index 24.84 kg/m2 (02/20/23 10:14 AM) Temperature [36.5-37.9 DegC] 36.3 DegC *LOW* (02/20/23 10:14 AM) Respiratory Rate 20 br/min (02/20/23 10:14 AM) Blood Pressure 142/82mmHg (02/20/23 10:14 AM) Cuff Pulse Pressure 60 mmHg (02/20/23 10:14 AM) Social History Social History Type Response Smoking Status Never smoked cigaret meera Sex Male Patient Care team information Care Team Personnel Name: MD Carlos, Dirk Neal Position: Referring Member Role: Primary Care Provider Address: Address: [address] [place] [address]
[2023-07-11] MEDS ORDERED: SUGAMMADEX SODIUM 200 MG/2 ML VIAL IV ONE (14:28)
--- NOTE | 2023-07-11 14:53 | Operative Report ---
PG Post Operative Report Pre & Post Diagnosis Operation Date: 07/11/23 08:50 Pre-Op Diagnosis: Cervical lymphadenopathy, metastatic carcinoma Post-Op Diagnosis: Cervical lymphadenopathy, metastatic I identified the patient and participated in the time-out.: Yes Procedure Operation Date: 07/11/23 08:50 Actual Procedures p Cervical Lymph Node Biopsy - Anish Loza DO, FACS Surgeon Anish Loza DO, FACS Dredge Runner None Estimated Blood Loss 2 Findings Consistent with Post-Op Diagnosis 3 x 4 cm cervical lymph node deep to sternocleidomastoid. Circumferentially dissected, ligated with 3-0 silk ties, excised. Good hemostasis. 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 Oncology is requested excisional biopsy of one of the lymph nodes in the cervical region. Plan for cervical lymph node biopsy. The risks of the procedure were discussed, all questions were answered, and the patient agreed to proceed with surgery as planned. Description of Procedure The patient was properly identified, consented, and taken to the operating room where he was placed in the supine position. General endotracheal anesthesia was induced. SCDs and a safety belt were placed. Preoperative antibiotics were administered. The patient's bilateral neck was prepped and draped in the standard sterile fashion. Surgical timeout was performed and all parties were in agreement that this was the correct patient and procedure to be performed and we continued as planned. The patient was placed in the Semi-Dave position and his head was rotated towards the right. Multiple palpable lymph nodes were identified in the left neck. The most prominent was in the left supraclavicular region. Local anesthetic was injected along the skin incision. A trans incision was made overlying the palpable lower cervical lymph node and deepened down through the subcutaneous tissue with electrocautery. The platysma was divided. The lymph node was located behind the sternocleidomastoid muscle and this was gently with blunt dissection. The lymph node was circumferentially dissected, excised, and passed off the table as specimen. The inferior and inferior vessels were ligated with 3-0 silk tie. The wound was irrigated and hemostasis was confirmed. The sternocleidomastoid was reapproximated with a running 3-0 Vicryl suture. The platysma was closed with a running 3-0 Vicryl suture. The skin was closed with a 4-0 Monocryl running subcuticular suture. Dermabond was placed over the wound. The patient was extubated in the operating room and taken to the PACU where he recovered without apparent incident. All sponge, instrument and needle counts were correct at the conclusion of the procedure. The patient tolerated the procedure well. I attest to the content of the Intraoperative Record and any orders documented therein. Any exceptions are noted below.
--- NOTE | 2023-07-11 15:39 | Anesthesiology Progress Note ---
Date of Service July 11, 2023 Anesthesia Post Procedure Vital Signs Vital Signs: Temp Pulse Pulse Resp BP BP Pulse Ox 07/11/23 15:05 65 16 126/77 100 07/11/23 15:25 36.6 C 65 17 144/89 H 98 07/11/23 15:15 65 12 145/81 H 100 07/11/23 14:55 36.3 C L 63 12 132/71 100 07/11/23 13:25 36.5 C 68 18 144/88 H 100 07/11/23 06:39 36.5 C 70 17 149/80 H 98 07/10/23 21:21 36.3 C L 70 16 156/85 H 98 07/10/23 15:48 36.7 C 72 18 140/80 97 O2 Del Method O2 Flow Rate 07/11/23 15:05 Oxymask 10 07/11/23 15:25 Room Air 07/11/23 15:15 Oxymask 10 07/11/23 14:55 Oxymask 10 07/11/23 13:25 Room Air 07/11/23 06:39 Room Air 07/10/23 21:21 Room Air 07/10/23 15:48 Room Air Pain Intensity Right Abdomen: Pain Intensity: 5 Back: Pain Intensity: 5 Left Neck: Pain Intensity: 4 Transfer of Care Handoff Completed per policy Notes Mental Status: alert / awake / arousable Patient Amnestic to Procedure: Yes Nausea / Vomiting: adequately controlled Pain: adequately controlled Airway Patency, RR, SpO2: stable & adequate BP & HR: stable & adequate Hydration State: stable & adequate Anesthetic Complications: no major complications apparent and Pt Satisfied with anesthetic care
[2023-07-11] MEDS ORDERED: MoRPHine SULFATE 2 MG/ML CARP IV PRN (15:46)
[2023-07-11] MEDS ORDERED: MoRPHine SULFATE 4 MG/ML 1 ML CARP\\VIAL IV PRN (15:46)
[2023-07-11] MEDS: traZODone HCL 100 MG TAB PO SCH (21:29)
[2023-07-11] MEDS: PRAVASTATIN SOD 10 MG TAB PO SCH (21:29)
[2023-07-11] MEDS: lamoTRIgine 100 MG TAB PO SCH (21:30)
[2023-07-12] MEDS: SODIUM CHLORIDE 0.9% 1,000 ML IV SCH ×2 (01:26→08:52)
[2023-07-12] MEDS: PIPERACILLIN/TAZOBACTAM 4.5 GM in DEXTROSE 5% MINI-B 100 ML IV SCH ×2 (01:26→10:11)
--- NOTE | 2023-07-12 06:00 | Electrocardiogram Report ---
Test Reason : Blood Pressure : / mmHG Vent. Rate : 072 BPM Atrial Rate : 288 BPM P-R Int : 000 ms QRS Dur : 084 ms QT Int : 388 ms P-R-T Axes : 208 048 -69 degrees QTc Int : 424 ms Atrial flutter with variable A-V block Abnormal ECG When compared with ECG of 15-MAY-2023 11:47, No significant change Confirmed by Angel Alberto ([id number]) on 07/12/2023 6:00:44 AM Referred By: [facility] Confirmed By:Angel Alberto
[2023-07-12 07:12] LABS: Hematocrit (blood only) 32.6 % (42.0-52.0); Hemoglobin 10.6 g/dl (14.0-18.0); Mean Corpuscular Hemoglobin 26.9 pg (25.0-34.0); Mean Corpuscular Hgb Conc 32.5 g/dL (32.0-36.0); Mean Corpuscular Volume 82.7 fL (80.0-100.0); Mean Platelet Volume 11.3 fL (9.4-12.4); Platelet Count 237 K/uL (130-400); RDW Coefficient of Variation 15.3 % (11.5-14.5); Red Blood Count 3.94 M/uL (4.70-6.10); White Blood Count 7.48 K/ul (4.8-10.8)
[2023-07-12] MEDS: ATENOLOL 25 MG TABLET PO SCH (08:55)
[2023-07-12] MEDS: PANTOprazole 40 MG TAB PO SCH (08:55)
[2023-07-12] MEDS: NAPROXEN 250 MG TAB PO SCH (08:55)
[2023-07-12] MEDS: amLODIPine BESYLATE 5 MG TAB PO SCH (08:56)
[2023-07-12] MEDS: ACETAMINOPHEN 325 MG TAB PO SCH ×2 (08:56→12:47)
--- NOTE | 2023-07-12 10:41 | Hematology/Oncology Prog Note ---
Date of Service July 12, 2023 Assessment & Plan (1) Abdominal lymphadenopathy: Plan: FNA revealed neuroendocrine cancer. I am still waiting for the results of the carcinoid markers, including serum chromogranin level, 24-hour 5- hydroxyindoleacetic acid level. 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 It will be harder for me to facilitate depot octreotide in the hospital. However we will try to get subcutaneous octreotide, to control his diarrhea while he is acutely admitted. This will be transitioned to Depo intramuscular octreotide once he is discharged to the facility and establishes care with us in the clinic Plan I had a discussion with the patient as well as Dr. Vinod Roberts MD from [facility]. At this time I waiting for a dispositional plan for the patient, to see whether he will stay in the hospital or will be discharged back to the facility. If he is clinically deemed to be unfit for discharge because of his chronic diarrhea, in that case I may institute some of the oncological treatment while he is here; especially once I get the results of the biopsy. In that case we may decide to proceed with the first cycle of palliative systemic chemotherapy using a karuk doublet agent; Carbo-Etoposide and complete staging studies; include a PET CT scan, screening MRI of the brain. If he is deemed to be clinically safe for discharge to the correctional facility, in that case we will coordinate all of his care with the correctional facility. We will schedule an outpatient oncology visit where the patient will get his first cycle of palliative systemic chemotherapy, screening MRI of the brain and the PET CT scan. We will try to get the Mediport placed while he is in the hospital for facilitation of chemotherapy. Greatly appreciate the help of our colleagues from the inpatient side, in coordinating and management of care for this patient with a complex social situation. Admission and Anticipated Discharge Date Admission Date: July 02, 2023 Subjective Patient has been evaluated this morning. He was again in the bed, lying comfortably. However he did report he continues to have diarrhea and occasional crampy abdominal pain. He reports that he is having about 3-4 bowel movements every day. However his diarrhea has improved since he has been in the hospital. He is also getting IV fluids. Review of Systems Review of Systems: The patient is complaining of chronic diarrhea, occasional flushing, abdominal pain, weight loss, decreased appetite. Reports no fever, cough, sputum production Physical Exam Constitutional: well developed Eyes: PERRL, conjunctivae normal, anicteric sclerae ENMT: external ear and nose normal, oropharynx normal Neck: trachea midline, no thyromegaly Respiratory: normal respiratory effort, lungs clear to auscultation Cardiovascular: RRR, no murmur, no edema Chest (Breasts): normal inspection/palpation of breasts Gastrointestinal (Abdomen): normal bowel sounds, soft, nontender, no hepatosplenomegaly Musculoskeletal: no cyanosis or clubbing, extremities motor strength 5/5 Skin: no rashes, warm and dry Results & Data Vital Signs (Past 12 Hours) Vital Signs Temp Pulse Resp BP Pulse Ox O2 Del Method 07/12/23 08:07 36.3 C L 79 16 145/85 H 98 Room Air 07/12/23 02:37 36.3 C L 87 15 144/82 H 95 Room Air 07/11/23 23:00 36.3 C L 68 16 143/81 H 100 Room Air
--- NOTE | 2023-07-12 12:10 | Surgery Progress Note ---
Date of Service July 12, 2023 Assessment & Plan (1) Cervical lymphadenopathy: Plan: POD 1 Cervical lymph node BX patient doing well, tolerating diet no n/v passing flatus no s/s of infection noted at incisional area, covered with dermabond Admission and Anticipated Discharge Date Admission Date: July 02, 2023 Supervising Physician Co-Signing Physician Notes Patient seen and examined, agree with above. POD #1 left cervical lymph node biopsy, incision healing well, no ecchymosis. Pathology pending. Given his diagnosis of malignancy he will likely need a port. This can be performed as an outpatient in the next few weeks. The clinic may be contacted to set the surgery up Subjective Patient seen resting in bed Tolerating Diet, No complaints of incisional pain, N/V Has abdominal pain, passing flatus Review of Systems Constitutional: no fever, no chills and no sweats Respiratory: no dyspnea Gastrointestinal: + abdominal pain; no nausea and no vomiting Physical Exam Physical Exam: alert oriented Constitutional: cooperative and comfortable; no acute distress Neck: left side neck post operative site covered with dermabond no s/s of infection noted Respiratory: normal respiratory effort and able to speak in complete sentences; no respiratory distress Cardiovascular: Rate/Rhythm: regular rate Results & Data Vital Signs (Past 12 Hours) Vital Signs Temp Pulse Resp BP Pulse Ox O2 Del Method 07/12/23 08:07 97.3 F L 79 16 145/85 H 98 Room Air 07/12/23 02:37 97.3 F L 87 15 144/82 H 95 Room Air PG Care Time/CCT Total # of Minutes Spent Total Time Spent with Patient: Total time spent is greater than 50% in coordination of care (as documented) at patient's floor/unit and/or counseling patient: Coding Level of Care Code 22651 Post Operative Follow-Up Diagnoses Cervical lymphadenopathy R59.0
--- NOTE | 2023-07-12 14:28 | Discharge Summary ---
Date of Service July 12, 2023 Admission HPI Per Admitting Provider 63 yo male PMHx Bipolar I, atrial flutter on eliquis, HLD, HTN, GERD presented to ED with diarrhea and abdominal pain not improved since last admission 03/15/23-03/18/23. Has had fever, night sweats, significant weight loss in the interim. At last admission was noted to have likely pathologic lymph nodes for which he was to have PET scan, this was never completed. ED Course: Abd US: +cholelithiasis and cholecystic sludge, mild distention, borderline thickening. Negative monae. Abd CT: Layering sludge in gallbladder. R paravertebral mass 4.2x2.1cm. Found to have MAK Cr1.82 from baseline of <1. 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, final biospy is pending diarrhea secondary to above Discharge Exam Pt is awake and alert left neck biopsy site is clean and dry Discharge Data Allergies Allergy/AdvReac Type Severity Reaction Status Date / Time No Known Allergies Allergy Verified 07/02/23 20:13 Consultations 07/02/23 21:44 ED Decision to Admit Stat 07/03/23 07:06 Consult General Surgery Routine 07/03/23 14:54 Consult General Surgery Routine 07/04/23 11:17 Consult Gastroenterology Routine 07/10/23 15:44 Consult Oncology Routine 07/10/23 17:21 Consult General Surgery Routine Procedures Performed Operation Date: 07/11/23 08:50 Actual Procedures p Cervical Lymph Node Biopsy - Anish Loza, , FACS Ordered Studies 07/02/23 15:39 US abdomen limited Stat 07/02/23 19:43 CT abd pelvis wo con Stat 07/03/23 01:17 MR thoracic spine wo/w con Routine MRI Spine [MR lumbar spine wo/w con] Routine 07/04/23 08:46 CT chest diagnostic wo con Urgent 07/05/23 IR FNA w/img 1st lesion US Routine 07/05/23 12:05 CT chest diagnostic w con Stat Hospital Course (1) Abdominal pain: Abdominal Pain, likely neuroendocrine neoplasm primary of unknown site with possible retroperitoneal and lymphatic metastases MRI thoracic and lumbar spine showed right periaortic lymphadenopathy and right prevertebral mass. FNA biopsy from left side of his neck done by IR 07/05. 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 [id number] status post excisional lymph node biopsy to define histologic architecture which may be very helpful in arriving at a more specific diagnoses. Consulted oncology: will need PET scan and 5- HIAA testing. Will need mediport placed as outpt Will need PET scan and brain MRI for staging HIDA unremarkable,General surgery recommended no surgical intervention for gallbladder Pain appears better controlled. tylenol question of pneumomediastinum IR had recommended a CT chest CT chest showed findings suggestive of pneumo mediastinum from a ? Perforation versus a diverticulum CT chest with contrast was done 07/05 and was indeterminant as to whether this is a esophageal diverticulum or perforation. Since the patient is so stable hemodynamically and is completely asymptomatic, decision was made to advance diet after speaking to GI. Perforation would be highly unlikely. Patient has been tolerating a p.o. diet, completed antibotics of zosyn 07/11/23 (2) MAK (acute kidney injury): obstructive uropathy not seen on imaging resolved (3) Atrial flutter: atenolol for rate control eliquis for vte prevention will need held to coordinate mediport chronic stable htn continue amlodipine, lisinoprol (4) Bipolar disorder: lamicatal and trazadone (5) GERD (gastroesophageal reflux disease): Total Time Total Time Spent Total Time Spent (In Minutes): It required greater than 30 minutes to prepare this patient for discharge Discharge Plan Discharge Items [facility] Reason For Visit: DIARRHEA, ABDOMINAL PAIN Discharge Diagnosis: metastatic cancer, yet to be determined exact primary s/p ln biopsy Activity: Resume your previous activity Non-emergency contact: Primary Care Provider and Oncologist Call non-emergency contact if: your symptoms worsen Follow-up/Referrals: Jones ANDERSON [Primary Care Provider] - Diet: Regular Addtl Attending Provider Instructions: please keep the wound on the left neck clean and dry. follow up with out pt General surgery for a port placement very important to have oncology appointment Pending Studies at Discharge: Yes Studies:: final path of neck biopsy Stand-Alone Forms: My [employer], Smoking Cessation Skilled Items Lines: None Urinary Catheter: No Medications and DC Order Prescriptions: New hydrocodone-acetaminophen 5-325 mg tablet 1 tab PO Q6H PRN (Reason: pain) Qty: 20 0RF Continued pravastatin 10 mg Tablet 10 mg PO HS trazodone 100 mg Tablet 200 mg PO HS lamotrigine [Lamictal] 100 mg Tablet 100 mg PO HS omeprazole 20 mg Tablet,Delayed Release (Dr/Ec) 40 mg PO DAILY atenolol 25 mg Tablet 25 mg PO QAM Qty: 30 0RF Eliquis 5 mg Tablet 5 mg PO BID Qty: 60 0RF amlodipine 10 mg tablet 10 mg PO DAILY Qty: 30 0RF Discontinued lisinopril 20 mg Tablet 20 mg PO DAILY diclofenac sodium 50 mg Tablet,Delayed Release (Dr/Ec) 50 mg PO BID PRN (Reason: Pain) Discharge Orders: Discharge Order (Routine); Ordered 07/12/23 Ordered By: Kyler Roberts Admission Data Admit Date/Time: 07/02/23 22:36 Attending Provider: Kyler Roberts Admit Provider: Marci London Primary Care Provider: [facility] Other Providers: London Rico ; Marci London ; Denilson Lundberg ; Carole Gregorio ; Mona Elizondo ; Reese Aldana ; Juani Galvan ; Travis Moseley ; Sury Saini ; [employer] ; Doron Ludwig ; Deejay Echavarria ; Francisca Ott ; [facility],No Attending ; Anish Loza Other Interventions: Discharge Summary Assessment (RN) Last Done: 07/12/23 13:52 Coding Level of Care Code 27262 INP/OBS DISCH >30 MIN Diagnoses Abdominal pain R10.9 MAK (acute kidney injury) N17.9 Atrial flutter I48.92 Bipolar disorder F31.9 GERD (gastroesophageal reflux disease) K21.9
== END 2023-07-12 14:59 | DRG 829 ==
LOC: ED 15:11 → EDINP 22:36 → SUATTDRO 22:36 → 3W 07-03 01:18